=== PATIENT | female | born 1960 | race Caucasian/White ===

== ENCOUNTER 2016-07-08 11:28 | Emergency (ER) | payer OTHER ==
[2016-07-08 12:41] LABS: Hematocrit 37 % (35-47); Hemoglobin 12.5 g/dl (12.0-16.0); Mean Corpuscular HGB Conc 34 g/dl (31-36); Mean Corpuscular Hemoglobin 32 pg (27-31); Mean Corpuscular Volume 94 fL (80-97); Mean Platelet Volume 8 um3 (7.4-10.4); Red Blood Count 3.94 10^6/ul (4.0-5.4); Red Cell Distribution Width 12 % (10.5-15); White Blood Count 8.3 10^3/ul (3.5-10.8)
[2016-07-08 12:56] LABS: Albumin 4.3 g/dL (3.2-5.2); BUN/Creatinine Ratio 21.8 (8-20); Calcium 9.5 mg/dL (8.6-10.3); EGFR African American 98.3 (>60); EGFR Non-African American 76.4 (>60); Globulin 2.8 g/dL (2-4); Magnesium 1.9 mg/dL (1.9-2.7); Potassium 4.2 mmol/L (3.5-5.0); Total Bilirubin 0.4 mg/dL (0.2-1.0); Total Protein 7.1 g/dL (6.4-8.9)
[2016-07-08 13:06] LABS: TSH (Thyroid Stimulating Horm) 0.82 mcIU/mL (0.34-5.60)
--- NOTE | 2016-07-08 13:16 | RAD ---
INDICATION: Chest pain COMPARISON: None. TECHNIQUE: Single AP portable view of the chest was obtained. FINDINGS: Image quality is compromised due to the relative inferiority of a portable chest x-ray. The heart and mediastinum exhibit normal size and contour. The lungs are grossly clear. There is no evidence of a large pleural effusion. Incidentally noted is a plate and screw fixator overlying the midline lower cervical spine. Otherwise the bones are normal for the patient's age. IMPRESSION: No radiographic evidence for acute cardiopulmonary abnormality on this portable chest x-ray.
[2016-07-08 14:05] LABS: Urine Bilirubin Negative (Negative); Urine Glucose Negative (Negative); Urine Nitrite Negative (Negative)
--- NOTE | 2016-07-08 15:54 | ED ---
Morteza Davison Karl, scribed for Kevin Solano MD on 07/08/16 at 1235 . HPI Chest Pain - HPI Summary HPI Summary: 55 y/o F presents w/ c/o left sided CP an fatigue last night and today. Pt stated that her CP started today at 10:30 started while drinking coffee and she felt some lightheadedness when she arrived at the ED. Pt reported that her pain is constant at a 5/10 and is on the left side of her chest, worse with movement. Pt also reported mild SOB. Pt denied nausea, vomiting and diaphoresis. Hx: HTN. - History of Current Complaint Chief Complaint: EDChestPainROMI Time Seen by Provider: 07/08/16 12:16 Hx Obtained From: Patient Onset/Duration: Started Hours Ago, Atraumatic, Still Present Timing: Constant Initial Severity: Moderate Current Severity: Moderate Pain Intensity: 5 - CP Pain Scale Used: 0-10 Numeric Chest Pain Location: Left Anterior Aggravating Factor(s): Movement Alleviating Factor(s): Nothing Associated Signs and Symptoms: Positive: Chest Pain - Allergy/Home Medications Allergies/Adverse Reactions: Allergies Allergy/AdvReac Type Severity Reaction Status Date / Time Codeine Allergy Severe "MAKES ME Verified 06/16/16 10:24 ILL" Hydrocodone Allergy Severe "MAKES ME Verified 06/16/16 10:24 ILL AND HAVE NIGHTMARES" Oxycodone Allergy Severe "MAKES ME Verified 06/16/16 10:24 ILL AND HAVE NIGHTMARES" PMH/Surg Hx/FS Hx/Imm Hx Previously Healthy: Yes Endocrine/Hematology History: Denies: Hx Diabetes, Hx Thyroid Disease Cardiovascular History: Denies: Hx Hypertension, Hx Pacemaker/ICD Respiratory History: Denies: Hx Asthma, Hx Chronic Obstructive Pulmonary Disease (COPD) GI History: Denies: Hx Ulcer History: Denies: Hx Renal Disease Musculoskeletal History: Reports: Hx Back Problems - cervical spine Sensory History: Denies: Hx Hearing Aid Psychiatric History: Denies: Hx Panic Disorder - Surgical History Surgery Procedure, Year, and Place: 1993 & 1995 - [facility]. CERVICAL NECK SURGERY - 2002 Infectious Disease History: No Infectious Disease History: Denies: Hx Clostridium Difficile, Hx Hepatitis, Hx Human Immunodeficiency Virus (HIV), Hx of Known/Suspected MRSA, Hx Shingles, Hx Tuberculosis, Hx Known/ Suspected VRE, Hx Known/Suspected VRSA, History Other Infectious Disease, Traveled Outside the [place] in Last 30 Days - Family History Known Family History: Positive: Other - breast CA, bone CA, leukemia - Social History Alcohol Use: Rare Substance Use Type: Reports: None Substance Use Comment - Amount & Last Used: tramadol Smoking Status (MU): Never Smoked Tobacco Type: Cigarettes Have You Smoked in the Last Year: Yes Review of Systems Negative: Skin Diaphoresis Eyes: Negative ENT: Negative Positive: Chest Pain Positive: Shortness Of Breath Negative: Vomiting, Nausea Genitourinary: Negative Musculoskeletal: Negative Skin: Negative Neurological: Negative Psychological: Normal All Other Systems Reviewed And Are Negative: Yes Physical Exam - Summary Physical Exam Summary: VITAL SIGNS: Reviewed. GENERAL: Patient is a well developed and nourished female who is lying comfortable in the stretcher. Patient is not in any acute respiratory distress. HEAD AND FACE: No signs of trauma. No ecchymosis, hematomas or skull depressions. No sinus tenderness. EYES: PERRLA, EOMI x 2, No injected conjunctiva, no nystagmus. EARS: Hearing grossly intact. Ear canals and tympanic membranes are within normal limits. MOUTH: Oropharynx within normal limits. NECK: Supple, trachea is midline, no adenopathy, no JVD, no carotid bruit, no c- spine tenderness, neck with full ROM. CHEST: Symmetric, no tenderness at palpation LUNGS: Clear to auscultation bilaterally. No wheezing or crackles. CVS: Regular rate and rhythm, S1 and S2 present, no murmurs or gallops appreciated. ABDOMEN: Soft, non-tender. No signs of distention. No rebound no guarding, and no masses palpated. Bowel sounds are normal. EXTREMITIES: FROM in all major joints, no edema, no cyanosis or clubbing. NEURO: Alert and oriented x 3. No acute neurological deficits. Speech is normal and follows commands. SKIN: Dry and warm Triage Information Reviewed: Yes Vital Signs On Initial Exam: Initial Vitals Temp Pulse Resp BP Pulse Ox 98.3 F 67 15 151/89 100 07/08/16 11:38 07/08/16 11:38 07/08/16 11:38 07/08/16 11:38 07/08/16 11:38 Vital Signs Reviewed: Yes Diagnostics - Vital Signs Vital Signs Temp Pulse Resp BP Pulse Ox 07/08/16 11:38 98.3 F 67 15 151/89 100 - Laboratory Lab Results: Lab Results 07/08/16 Range/Units 12:30 WBC 8.3 (3.5-10.8) 10^3/ul RBC 3.94 L (4.0-5.4) 10^6/ul Hgb 12.5 (12.0-16.0) g/dl Hct 37 (35-47) % MCV 94 (80-97) fL MCH 32 H (27-31) pg MCHC 34 (31-36) g/dl RDW 12 (10.5-15) % Plt Count 278 (150-450) 10^3/ul MPV 8 (7.4-10.4) um3 Neut % (Auto) 56.4 (38-83) % Lymph % (Auto) 31.7 (25-47) % Rankin % (Auto) 8.9 (1-9) % Eos % (Auto) 2.4 (0-6) % Baso % (Auto) 0.6 (0-2) % Absolute Neuts (auto) 4.7 (1.5-7.7) 10^3/ul Absolute Lymphs (auto) 2.6 (1.0-4.8) 10^3/ul Absolute Monos (auto) 0.7 (0-0.8) 10^3/ul Absolute Eos (auto) 0.2 (0-0.6) 10^3/ul Absolute Basos (auto) 0 (0-0.2) 10^3/ul Absolute Nucleated RBC 0.01 10^3/ul Nucleated RBC % 0.1 Result Diagrams: 07/08/16 12:30 07/08/16 12:30 Lab Statement: Any lab studies that have been ordered have been reviewed, and results considered in the medical decision making process. - Radiology CXR Xray Interpretation: No Acute Changes Radiology Interpretation Completed By: Radiologist - IMPRESSION: No radiographic evidence for acute cardiopulmonary abnormality on this portable chest x-ray. - EKG 11:29 EKG Interpretation: NSR at 76 bpm, No ST elevation Chest Pain Course/Dx - Course Assessment/Plan: 55 y/o F presents w/ c/o left sided CP an fatigue last night and today. Pt stated that her CP started today at 10:30 started while drinking coffee and she felt some lightheadedness when she arrived at the ED. Pt reported that her pain is constant at a 5/10 and is on the left side of her chest, worse with movement. Pt also reported mild SOB. Pt denied nausea, vomiting and diaphoresis. Hx: HTN. Blood work wnl. Troponin # 1 and #2 is 0.00. UA is negative. CXR: No acute cardiopulmonary pathology. EKG: NSR at BPM w/o NERI. Patient reports that all symptoms have resolved. Patient has been observed in the ER for approximately 4 hours. Because the patient has no significant comorbidities and no family history of cardiovascular disease the patient will be discharged home with follow up of PMD. I discussed all the findings and test results with the patient. Patient was instructed to return to the emergency room immediately if any of the symptoms return or worsens. Patient understands and agrees. Plan of care was discussed with the patient and patient understands and agrees. All questions were answered at patient satisfaction. There were no further complaints or concerns. PE before discharge : CVS: S1 and S2 present. No murmurs appreciated. Abdominal exam before discharge: Soft, non-tender. No signs of distention. No rebound no guarding, and no masses palpated. Bowel sounds are normal. Patient is alert and oriented x 3. Patient is hemodynamically stabl - Chest Pain Differential Diagnosis/HQI/PQRI: Acute DE, ACS, Angina, CHF, Chest Wall, GI Disease, Lower Respiratory Infection - Diagnoses Provider Diagnoses: Atypical chest pain Discharge - Discharge Plan Condition: Stable Disposition: HOME The documentation as recorded by the Morteza hussein Karl accurately reflects the service I personally performed and the decisions made by me, Kevin Solano MD.
[2016-07-08 16:34] VITALS: BP 129/106
== END 2016-07-08 16:40 | disposition home or self-care (01) ==
LOC: ED 11:28
DX: R07.89 Other chest pain (principal); R06.02 Shortness of breath
CPT/HCPCS: 36415; 71010; 80053; 81003; 82550; 82553; 83605; 83735; 83880; 84443; 84484; 85025; 93005; 99283

== ENCOUNTER 2016-10-31 14:13 | Emergency (ER) | payer OTHER ==
[2016-10-31 14:20] VITALS: BP 107/59
--- NOTE | 2016-11-20 07:51 | UC ---
Throat Pain/Nasal Regan HPI - HPI Summary HPI Summary: Patient presents with complaints of sinus pain, pressure, and nasal plugging, and discharge. She states the the nasal discharge is thick, green. Denies headache, reported fever or chills. States she is eating, and drinking well. - History of Current Complaint Chief Complaint: UCRespiratory Stated Complaint: SINUS ISSUE Time Seen by Provider: 10/31/16 14:32 Hx Obtained From: Patient ?: No Onset/Duration: Gradual Onset Severity: Moderate Pain Intensity: 0 Pain Scale Used: 0-10 Numeric Associated Signs & Symptoms: Positive: Sinus Discomfort, Nasal Discharge - Allergies/Home Medications Allergies/Adverse Reactions: Allergies Allergy/AdvReac Type Severity Reaction Status Date / Time Codeine Allergy Severe "MAKES ME Verified 09/27/16 08:55 ILL" Hydrocodone Allergy Severe "MAKES ME Verified 09/27/16 08:55 ILL AND HAVE NIGHTMARES" Oxycodone Allergy Severe "MAKES ME Verified 09/27/16 08:55 ILL AND HAVE NIGHTMARES" PMH/Surg Hx/FS Hx/Imm Hx Previously Healthy: Yes - Surgical History Surgical History: Yes Surgery Procedure, Year, and Place: 1993 & 1995 - [facility]. CERVICAL NECK SURGERY - 2002. D&C - Family History Known Family History: Positive: Other - breast CA, bone CA, leukemia - Social History Alcohol Use: None Substance Use Type: None Substance Use Comment - Amount & Last Used: tramadol Smoking Status (MU): Former Smoker Type: Cigarettes Have You Smoked in the Last Year: Yes Household Exposure Type: Cigarettes Review of Systems Constitutional: Fatigue ENT: Nasal Discharge, Sinus Congestion, Sinus Pain/Tenderness All Other Systems Reviewed And Are Negative: Yes Physical Exam Triage Information Reviewed: Yes Appearance: Ill-Appearing Vital Signs: Initial Vital Signs Temp 98 F 10/31/16 14:17 Pulse 73 10/31/16 14:17 Resp 16 10/31/16 14:17 BP 107/59 10/31/16 14:17 Pulse Ox 99 10/31/16 14:17 Vital Signs Reviewed: Yes Eye Exam: Normal ENT: Positive: Nasal congestion, Nasal drainage Neck exam: Normal Respiratory Exam: Normal Cardiovascular Exam: Normal Throat Pain/Nasal Course/Dx - Course Course Of Treatment: Patient presents with a hstory of sinus infections, these symptoms today she finds are consisent with her previuos sinus infections. She was treated with Zithromax, and flonase and discharged in stable condition. - Differential Dx/Diagnosis Differential Diagnosis/HQI/PQRI: Sinusitis Provider Diagnoses: sinusitis Discharge - Discharge Plan Condition: Stable Disposition: HOME Prescriptions: Azithromycin TAB* [Zithromax TAB (Z-ROXANNE) 250 mg #6 tabs] 250 mg PO DAILY #6 tab Fluconazole 100 MG TAB* [Diflucan 100 MG TAB*] 100 mg PO DAILY #1 tab Patient Education Materials: Sinusitis (ED) Referrals: Piero Garcia MD [Primary Care Provider] -
== END 2016-10-31 15:14 | disposition home or self-care (01) ==
LOC: UCEAST 14:13
DX: J32.9 Chronic sinusitis, unspecified (principal); Z88.5 Allergy status to narcotic agent; Z87.891 Personal history of nicotine dependence
CPT/HCPCS: 99211; G0463

== ENCOUNTER 2016-11-17 13:36 | Emergency (ER) | payer OTHER ==
--- NOTE | 2016-11-17 15:12 | RAD ---
INDICATION: Cough. COMPARISON: Comparison is made with a prior chest x-ray study from July 08, 2016. TECHNIQUE: Dual-energy PA and lateral views of the chest were obtained. FINDINGS: The heart is within normal limits in size. Mediastinal and hilar contours appear within normal limits. The lungs are hyperinflated and clear. No pleural effusion is seen. Postsurgical changes are noted in the lower cervical spine. IMPRESSION: FINDINGS SUGGESTIVE OF COPD, NO EVIDENCE FOR ACUTE FINDING.
--- NOTE | 2016-11-17 15:58 | UC ---
Throat Pain/Nasal Regan HPI - HPI Summary HPI Summary: SIX WEEKS OF SINUS PRESSURE, CONGESTIPON AND CHEST CONGESTION. HAD BEEN ON COURSE OF AZITHROMYCIN 3 WEEKS AGO. SYMPTONS RESOLVED SOMEWHAT, BUT RETURNED. NO FEVER. - History of Current Complaint Hx Obtained From: Patient Onset/Duration: Gradual Onset, Lasting Weeks, Still Present Severity: Mild Pain Intensity: 2 Pain Scale Used: 0-10 Numeric Cough: Nonproductive Associated Signs & Symptoms: Positive: Hoarseness, Sinus Discomfort, Nasal Discharge - Epiglottits Risk Factors Epiglottis Risk Factors: Negative <Nakul Beyer - Last Filed: 11/17/16 15:54> <Ava Odonnell - Last Filed: 11/18/16 07:03> - History of Current Complaint Chief Complaint: UCRespiratory Stated Complaint: URI Time Seen by Provider: 11/17/16 14:33 - Allergies/Home Medications Allergies/Adverse Reactions: Allergies Allergy/AdvReac Type Severity Reaction Status Date / Time Codeine Allergy Severe "MAKES ME Verified 09/27/16 08:55 ILL" Hydrocodone Allergy Severe "MAKES ME Verified 09/27/16 08:55 ILL AND HAVE NIGHTMARES" Oxycodone Allergy Severe "MAKES ME Verified 09/27/16 08:55 ILL AND HAVE NIGHTMARES" PMH/Surg Hx/FS Hx/Imm Hx Previously Healthy: Yes - Surgical History Surgical History: Yes Surgery Procedure, Year, and Place: 1993 & 1995 - [facility]. CERVICAL NECK SURGERY - 2002. D&C - Family History Known Family History: Positive: Other - breast CA, bone CA, leukemia - Social History Occupation: Employed Full-time Lives: With Family Alcohol Use: None Substance Use Type: None Substance Use Comment - Amount & Last Used: tramadol Smoking Status (MU): Former Smoker Type: Cigarettes Have You Smoked in the Last Year: Yes Household Exposure Type: Cigarettes <Nakul Beyer - Last Filed: 11/17/16 15:54> Review of Systems Constitutional: Negative Skin: Negative Eyes: Negative ENT: Nasal Discharge, Sinus Congestion, Sinus Pain/Tenderness Respiratory: Cough Cardiovascular: Negative Gastrointestinal: Negative Genitourinary: Negative Motor: Negative Neurovascular: Negative Musculoskeletal: Negative Neurological: Negative Psychological: Negative All Other Systems Reviewed And Are Negative: Yes <Nakul Beyer - Last Filed: 11/17/16 15:54> Physical Exam Triage Information Reviewed: Yes Appearance: Well-Appearing, No Pain Distress, Well-Nourished Vital Signs: Initial Vital Signs Temp 98.3 F 11/17/16 13:39 Pulse 83 11/17/16 13:39 Resp 16 11/17/16 13:39 Pulse Ox 100 11/17/16 13:39 Vital Signs Reviewed: Yes Eye Exam: Normal ENT: Positive: Normal ENT inspection, Hearing grossly normal, Pharynx normal, Nasal congestion, TM bulging, TM dull Dental Exam: Normal Neck exam: Normal Neck: Positive: Supple, Nontender, No Lymphadenopathy Respiratory Exam: Other - COUGH Respiratory: Positive: Chest non-tender, Lungs clear, Normal breath sounds, No respiratory distress, No accessory muscle use Cardiovascular Exam: Normal Cardiovascular: Positive: RRR, No Murmur, Pulses Normal, Brisk Capillary Refill Abdominal Exam: Normal Musculoskeletal Exam: Normal Musculoskeletal: Positive: Strength Intact, ROM Intact Neurological Exam: Normal Psychological Exam: Normal Psychological: Positive: Normal Response To Family Skin Exam: Normal <Nakul Beyer - Last Filed: 11/17/16 15:54> Vital Signs: Initial Vital Signs Temp 98.3 F 11/17/16 13:39 Pulse 83 11/17/16 13:39 Resp 16 11/17/16 13:39 Pulse Ox 100 11/17/16 13:39 <Ava Odonnell - Last Filed: 11/18/16 07:03> Throat Pain/Nasal Course/Dx - Differential Dx/Diagnosis Differential Diagnosis/HQI/PQRI: Sinusitis, Tonsillitis, URI Provider Diagnoses: SINUSITIS; BRONCHITIS <Nakul Beyer - Last Filed: 11/17/16 15:54> Discharge <Nakul Beyer - Last Filed: 11/17/16 15:54> <Ava Odonnell - Last Filed: 11/18/16 07:03> - Discharge Plan Condition: Stable Disposition: HOME Prescriptions: Amoxicillin/Clavulanate TAB* [Augmentin TAB 875*] 875 mg PO BID #20 tab Benzonatate CAP* [Tessalon 100 MG CAP*] 100 mg PO TID PRN #15 cap PRN Reason: Cough Patient Education Materials: Sinusitis (ED) Referrals: Piero Garcia MD [Primary Care Provider] - Attestation Statement Provider Attestation: I was available for consult. This patient was seen by the Y[facility]. The patient was not presented to, seen by, or examined by me. -Kelin <Ava Odonnell - Last Filed: 11/18/16 07:03>
== END 2016-11-17 15:46 | disposition home or self-care (01) ==
LOC: UCEAST 13:36
DX: J32.9 Chronic sinusitis, unspecified (principal); J40 Bronchitis, not specified as acute or chronic; Z88.5 Allergy status to narcotic agent; Z87.891 Personal history of nicotine dependence
CPT/HCPCS: 71020; 99212; G0463

== ENCOUNTER 2017-08-22 13:36 | Emergency (ER) | payer OTHER ==
--- OUTSIDE RECORDS SUMMARY | 2017-08-22 13:46 | XMS REPORT ---
:1960 External Reference #:[id number] Author Organization [facility] Address [address] [address] Phone [phone] Care Team Providers Name Role Phone Piero Garcia MD Primary Care Physician Unavailable Payers Type Date Identification Numbers Payment Provider Subscriber Commercial Policy Number: [id number] [employer] [place] Saini PayID: [id number] [address] [address] [place] [address] Workers Compensation Onset: 2015 Policy Number: Autumn SCHMITT I.M. [place] Saini [id number] Group Number: fax# [phone] [address] PayID: SHANA Oliveros [id number] Workers Compensation Onset: 2015 Policy Number: Autumn Jaramillo/C Ins [place] Saini [id number] Group Number: FAX [phone] [address] PayID: [id number] Eleazar, SHANA [id number] Problems Date Description Provider Status Onset: 07/12/2015 Cervical spondylosis without Carson Knapp M.D. Active myelopathy Onset: 11/24/2015 Cervical disc disorder Piero Garcia M.D. Active Onset: 01/27/2016 Mixed hyperlipidemia Piero Garcia M.D. Active Onset: 08/14/2016 Anxiety state Piero Garcia M.D. Active Onset: 08/14/2016 Mild recurrent major depression Piero Garcia M.D. Active Family History Date Family Member(s) Problem(s) Comments General positev for breast and bone CA and leukemia Father due to NC () Father due to Emphysema () Mother due to Emphysema () Siblings 1 rheumatoid arthritis Siblings 2 breast cancer Social History Type Date Description Comments Occupation Currently Working [employer] out due to pain right now Cigarette Use Exposed to second hand smoke ETOH Use Rarely consumes wine Recreational Drug Use Denies Drug Use Smoking Patient is a former smoker Recreational Drug Use Sporadically uses Marijuana Allergies, Adverse Reactions, Alerts Date Description Reaction Status Severity Comments 05/04/2015 Codeine vomiting active Moderate to Severe 05/04/2015 Hydrocodone nightmares active Severe Medications Medication Date Status Form Strength Qnty SIG Indications Ordering Provider Sertraline HCL 06/13/ Active Tablets 100mg 60tab 2 tab by F33.0 Amy 2017 s mouth Nils, everyday [employer] Meloxicam 05/04/ Active Tablets 15mg 30tab once M54.2 Piero 2014 s daily Pachikara with food Sanjana Methocarbamol / Active Tablets 750mg 90tab tid [place], 0000 s MD Maverick Tramadol HCL / Active Tablets 50mg pt states [place], 0000 she is martín Temple MD four times daily Tylenol / Active Tablets 325mg as needed Unknown 0000 Lyrica / Active Capsules 75mg 4 tabs qd Unknown 0000 Hyoscyamine / Active Tablets ER 0.375mg 1 po qd [place], Sulfate ER 0000 12HR MD Lukas Clindamycin HCL 04/04/ Hx Capsules 300mg 14cap 1 tab by R68.84 Zsofia 2016 - s mouth Nils, 05/06/ twice a [employer] 2017 day for 7 days Amoxicillin 03/26/ Hx Tablets 875mg 20tab take one Other 2016 - tablet by Ordering 04/05/ mouth Provider 2017 twice a day x's 10 days Sertraline HCL 03/16/ Hx Tablets 100mg 45tab Take 1 F33.0 Piero 2016 - s & 05/29 Pachikara 06/13/ Tablets , MKaushikDKaushik 2018 By Mouth Every Day Sertraline HCL 02/12/ Hx Tablets 100mg 45tab 1 1/2 tab F33.0 Piero 2016 - s by mouth Pachikara 03/16/ every day , M.DKaushik 2016 Sertraline HCL 02/08/ Hx Tablets 100mg 45tab 1/2 tab F33.0 [place] 2016 - s by mouth Pachikara 02/12/ every day , M.DKaushik 2016 Sertraline HCL 10/03/ Hx Tablets 100mg 30tab Take One F33.0 [place] 2017 - s Tablet By Pachikara 02/08/ Mouth , M.D. 2016 Every Day Sertraline HCL 08/28/ Hx Tablets 50mg 30tab 1 by F33.0 [place] 2016 - s mouth Pachikara 10/03/ every day , M.DKaushik 2016 Sertraline HCL 08/14/ Hx Tablets 25mg 30tab 1 by F33.0 [place] 2016 - mouth Pachikara 08/28/ every day , M.DKaushik 2016 Amoxicillin/Clavu 08/17/ Hx Tablets 875-125mg 14tab 1 by J20.9 [place] lanate Potassium 2015 - mouth Pachikara 09/01/ twice a , M.D. 2015 day Amoxicillin/Clavu 08/17/ Hx Tablets 875-125mg 20tab 1 by J20.9 Piero lanate Potassium 2015 - mouth Pachikara 09/01/ twice a , M.D. 2015 day Cyclobenzaprine 07/15/ Hx Tablets 10mg 90tab three M50.10 [place] HCL 2015 - times a Pachikara 11/23/ day as , M.DKaushik 2016 needed Cyclobenzaprine 07/08/ Hx Tablets 10mg 20tab twice a M50.10 Piero HCL 2015 day as Pachikara 07/15/ needed , MXimena 2015 Cyclobenzaprine 05/25/ Hx Tablets 5mg 15tab 1 tab 8 h Piero HCL 2014 - prn Pachikara 05/31/ , M.Edilberto 2016 Centrum Silver / Hx Tablets Adult 50 onc a day Unknown Adult 50+ 0000 - 2015 Iron / Hx Tablets 50mg 2-3 times Unknown 0000 - per week 2015 Aleve / Hx Capsules 220mg 1 by Unknown 0000 - mouth 05/04/ twice a 2014 day as needed Ibuprofen / Hx Tablets 200mg 2 tabs as Unknown 0000 - needed 2014 Acetaminophen / Hx Capsules 500mg 1 by Unknown 0000 - mouth 06/28/ three to 2016 four times a day as needed Carisoprodol / Hx Tablets 350mg 30tab / tab 4 Jony 0000 - s times a , LMFT 2016 Tincture For / Hx Unknown Arithritis - 2016 Tincture For Hot / Hx Unknown Flashes - 2017 Tincture For / Hx Unknown Relaxing Muscles - 2016 Black Cohosh / Hx as needed Unknown - 2017 Medications Administered in Office Medication Date Status Form Strength Qnty SIG Indications Ordering Provider PPD Administered Injection Piero Garcia M.D. Immunizations CPT Code Status Date Vaccine Reaction Lot # [id number] Given 02/08/2017 Influenza Virus Vaccine, no immediate reaction, [id number] Quadrivalent, Split, patient tolerated well Preservative Free [id number] Given 05/30/2016 Influenza Virus Vaccine, [id number] Quadrivalent, Split Virus, [place] Use [id number] Given 07/22/2015 Pneumonia Vaccine [id number] Given 07/13/2015 Influenza Virus Vaccine, [id number] Quadrivalent, Split, Preservative Free Vital Signs Date Vital Result Comment 07/23/2017 Height 62 inches 5'2" Weight 170.00 lb Heart Rate 88 /min BP Systolic 140 mmHg BP Diastolic 90 mmHg Respiratory Rate 16 /min BMI (Body Mass Index) 31.1 kg/m2 07/17/2017 Weight 170.00 lb with shoes Heart Rate 77 /min BP Systolic 128 mmHg BP Diastolic 80 mmHg O2 % BldC Oximetry 96 % 06/06/2017 BP Systolic 138 mmHg BP Diastolic 84 mmHg 06/06/2017 Height 62 inches 5'2" Weight 166.00 lb Heart Rate 96 /min BP Systolic Sitting 170 mmHg BP Diastolic Sitting 90 mmHg Respiratory Rate 15 /min O2 % BldC Oximetry 96 % BMI (Body Mass Index) 30.4 kg/m2 05/17/2017 Weight 165.50 lb Heart Rate 83 /min BP Systolic Sitting 132 mmHg BP Diastolic Sitting 82 mmHg Body Temperature 97.3 F O2 % BldC Oximetry 95 % 04/11/2017 Weight 169.00 lb Heart Rate 72 /min BP Systolic Sitting 132 mmHg BP Diastolic Sitting 80 mmHg Body Temperature 98.5 F O2 % BldC Oximetry 97 % 04/04/2017 Weight 165.00 lb Heart Rate 68 /min BP Systolic Sitting 172 mmHg BP Diastolic Sitting 96 mmHg 03/16/2017 Height 60.5 inches 5'0.50" Weight 158.00 lb Heart Rate 78 /min BP Systolic 136 mmHg BP Diastolic 80 mmHg Body Temperature 98.6 F O2 % BldC Oximetry 98 % BMI (Body Mass Index) 30.3 kg/m2 02/08/2017 Height 60.5 inches 5'0.50" Weight 168.50 lb Heart Rate 75 /min BP Systolic 128 mmHg BP Diastolic 76 mmHg Body Temperature 98.0 F O2 % BldC Oximetry 96 % BMI (Body Mass Index) 32.4 kg/m2 02/01/2017 Height 60.5 inches 5'0.50" Weight 161.25 lb Heart Rate 60 /min BP Systolic Sitting 140 mmHg BP Diastolic Sitting 84 mmHg Respiratory Rate 14 /min Body Temperature 97.1 F BMI (Body Mass Index) 31.0 kg/m2 01/16/2017 Height 60.5 inches 5'0.50" Weight 160.12 lb Heart Rate 80 /min BP Systolic 130 mmHg BP Diastolic 82 mmHg Body Temperature 99.0 F O2 % BldC Oximetry 99 % BMI (Body Mass Index) 30.8 kg/m2 12/13/2016 Height 60.5 inches 5'0.50" Weight 164.00 lb Heart Rate 76 /min BP Systolic Sitting 134 mmHg BP Diastolic Sitting 72 mmHg Body Temperature 98.6 F O2 % BldC Oximetry 98 % BMI (Body Mass Index) 31.5 kg/m2 10/24/2016 Height 60.5 inches 5'0.50" Weight 166.38 lb Heart Rate 86 /min BP Systolic 118 mmHg BP Diastolic 72 mmHg Body Temperature 98.5 F O2 % BldC Oximetry 98 % BMI (Body Mass Index) 32.0 kg/m2 10/03/2016 Weight 165.50 lb Heart Rate 84 /min BP Systolic Sitting 120 mmHg BP Diastolic Sitting 82 mmHg Body Temperature 98.7 F O2 % BldC Oximetry 96 % 09/05/2016 Weight 162.25 lb Heart Rate 88 /min BP Systolic Sitting 96 mmHg BP Diastolic Sitting 67 mmHg Body Temperature 98.6 F O2 % BldC Oximetry 94 % 08/28/2016 Weight 160.00 lb Heart Rate 84 /min BP Systolic Sitting 130 mmHg BP Diastolic Sitting 90 mmHg Body Temperature 97.2 F O2 % BldC Oximetry 98 % 08/14/2016 Height 60.5 inches 5'0.50" Weight 160.00 lb Heart Rate 80 /min BP Systolic Sitting 158 mmHg BP Diastolic Sitting 88 mmHg Body Temperature 96.9 F O2 % BldC Oximetry 98 % BMI (Body Mass Index) 30.7 kg/m2 07/26/2016 Height 60.5 inches 5'0.50" Weight 163.00 lb Heart Rate 76 /min BP Systolic Sitting 112 mmHg BP Diastolic Sitting 76 mmHg Body Temperature 98.5 F Pain Level 6 neck O2 % BldC Oximetry 97 % BMI (Body Mass Index) 31.3 kg/m2 06/30/2016 Weight 163.00 lb Heart Rate 84 /min BP Systolic Sitting 160 mmHg BP Diastolic Sitting 90 mmHg Body Temperature 98.6 F O2 % BldC Oximetry 98 % 05/12/2016 Weight 160.50 lb Heart Rate 81 /min BP Systolic Sitting 142 mmHg BP Diastolic Sitting 86 mmHg Body Temperature 99.0 F O2 % BldC Oximetry 98 % 03/17/2016 Weight 158.50 lb Heart Rate 86 /min BP Systolic Sitting 144 mmHg BP Diastolic Sitting 86 mmHg Body Temperature 98.6 F O2 % BldC Oximetry 98 % 01/27/2016 Weight 162.12 lb Heart Rate 72 /min BP Systolic Sitting 150 mmHg BP Diastolic Sitting 82 mmHg Body Temperature 98.5 F O2 % BldC Oximetry 97 % 01/20/2016 Weight 158.00 lb Heart Rate 71 /min BP Systolic Sitting 136 mmHg BP Diastolic Sitting 72 mmHg Body Temperature 98.9 F O2 % BldC Oximetry 98 % 12/14/2015 Height 60.5 inches 5'0.50" Weight 163.12 lb Heart Rate 78 /min BP Systolic Sitting 142 mmHg BP Diastolic Sitting 86 mmHg Body Temperature 98.4 F O2 % BldC Oximetry 98 % BMI (Body Mass Index) 31.3 kg/m2 11/24/2015 Height 60.5 inches 5'0.50" Weight 169.00 lb Heart Rate 88 /min BP Systolic Sitting 140 mmHg BP Diastolic Sitting 82 mmHg Body Temperature 98.4 F O2 % BldC Oximetry 97 % BMI (Body Mass Index) 32.5 kg/m2 09/22/2015 Height 60.5 inches 5'0.50" Weight 160.00 lb Heart Rate 100 /min BP Systolic Sitting 142 mmHg BP Diastolic Sitting 80 mmHg Pain Level 7 7/10 O2 % BldC Oximetry 96 % BMI (Body Mass Index) 30.7 kg/m2 09/02/2015 Height 60.5 inches 5'0.50" Weight 160.00 lb Heart Rate 98 /min BP Systolic Sitting 123 mmHg BP Diastolic Sitting 76 mmHg Body Temperature 98.4 F O2 % BldC Oximetry 96 % BMI (Body Mass Index) 30.7 kg/m2 08/18/2015 Height 60.5 inches 5'0.50" Weight 155.00 lb Heart Rate 87 /min BP Systolic Sitting 132 mmHg BP Diastolic Sitting 72 mmHg Respiratory Rate 16 /min Body Temperature 98.6 F O2 % BldC Oximetry 98 % BMI (Body Mass Index) 29.8 kg/m2 08/02/2015 Height 60.5 inches 5'0.50" Weight 154.00 lb Heart Rate 98 /min BP Systolic Sitting 142 mmHg BP Diastolic Sitting 80 mmHg Body Temperature 98.6 F Pain Level 6 6/10 O2 % BldC Oximetry 97 % BMI (Body Mass Index) 29.6 kg/m2 07/27/2015 Height 60.5 inches 5'0.50" Weight 158.00 lb Heart Rate 88 /min BP Systolic Sitting 138 mmHg BP Diastolic Sitting 88 mmHg Body Temperature 98.7 F O2 % BldC Oximetry 96 % BMI (Body Mass Index) 30.3 kg/m2 07/15/2015 Height 60.5 inches 5'0.50" Weight 160.00 lb Heart Rate 86 /min BP Systolic Sitting 104 mmHg BP Diastolic Sitting 70 mmHg Body Temperature 98.6 F O2 % BldC Oximetry 97 % BMI (Body Mass Index) 30.7 kg/m2 07/13/2015 Height 60.5 inches 5'0.50" Weight 156.38 lb Heart Rate 95 /min BP Systolic Sitting 123 mmHg BP Diastolic Sitting 71 mmHg Body Temperature 99.6 F O2 % BldC Oximetry 98 % BMI (Body Mass Index) 30.0 kg/m2 07/12/2015 Height 60.5 inches 5'0.50" Weight 157.00 lb Heart Rate 78 /min BP Systolic Sitting 128 mmHg BP Diastolic Sitting 80 mmHg Pain Level 4 BMI (Body Mass Index) 30.2 kg/m2 07/08/2015 Height 60.5 inches 5'0.50" Weight 155.25 lb Heart Rate 88 /min BP Systolic Sitting 124 mmHg BP Diastolic Sitting 72 mmHg Body Temperature 99.3 F O2 % BldC Oximetry 98 % BMI (Body Mass Index) 29.8 kg/m2 06/21/2015 Height 60.5 inches 5'0.50" Weight 156.00 lb Heart Rate 67 /min BP Systolic Sitting 138 mmHg BP Diastolic Sitting 88 mmHg Body Temperature 98.5 F O2 % BldC Oximetry 97 % BMI (Body Mass Index) 30.0 kg/m2 06/07/2015 Height 60.5 inches 5'0.50" Weight 156.50 lb Heart Rate 88 /min BP Systolic Sitting 104 mmHg BP Diastolic Sitting 70 mmHg Body Temperature 99.1 F O2 % BldC Oximetry 97 % BMI (Body Mass Index) 30.1 kg/m2 05/31/2015 Height 60.5 inches 5'0.50" Weight 157.12 lb Heart Rate 86 /min BP Systolic Sitting 138 mmHg BP Diastolic Sitting 86 mmHg Body Temperature 99.2 F O2 % BldC Oximetry 98 % BMI (Body Mass Index) 30.2 kg/m2 05/18/2015 Height 60.5 inches 5'0.50" Weight 154.25 lb Heart Rate 84 /min BP Systolic Sitting 127 mmHg BP Diastolic Sitting 77 mmHg Pain Level 6 6/10 O2 % BldC Oximetry 96 % BMI (Body Mass Index) 29.6 kg/m2 05/04/2015 Height 60.5 inches 5'0.50" Weight 157.38 lb Heart Rate 84 /min BP Systolic Sitting 162 mmHg BP Diastolic Sitting 90 mmHg Body Temperature 97.8 F O2 % BldC Oximetry 97 % BMI (Body Mass Index) 30.2 kg/m2 Results Test Date Test Result H/L Range Note Laboratory test 06/06/2017 Cytology SEE RESULT BELOW 1 finding Laboratory test 04/04/2017 Surgical Pathology SEE RESULT BELOW 2 finding Laboratory test 01/19/2017 Giardia Lamblia SEE RESULT BELOW 3 finding Antigen Comp Metabolic Panel 01/19/2017 Sodium 135 mmol/L 133-145 Potassium 4.1 mmol/L 3.5-5.0 Chloride 105 mmol/L 101-111 Co2 Carbon Dioxide 26 mmol/L 22-32 Anion Gap 4 mmol/L 2-11 Glucose 101 mg/dL High 70-100 Blood Urea Nitrogen 16 mg/dL 6-24 Creatinine 0.94 mg/dL 0.51-0.95 BUN/Creatinine Ratio 17.0 8-20 Calcium 9.8 mg/dL 8.6-10.3 Total Protein 7.5 g/dL 6.4-8.9 Albumin 4.5 g/dL 3.2-5.2 Globulin 3.0 g/dL 2-4 Albumin/Globulin Ratio 1.5 1-3 Total Bilirubin 0.50 mg/dL 0.2-1.0 Alkaline Phosphatase 86 U/L 34-104 Alt 17 U/L 7-52 Ast 20 U/L 13-39 Egfr Non- 61.4 >60 Egfr 78.9 >60 4 Lipid Profile (Trig/Chol/HDL) 07/20/2016 Triglycerides 99 mg/dL 5 Cholesterol 200 mg/dL 6 HDL Cholesterol 58.6 mg/dL 7 LDL Cholesterol 122 mg/dL 8 Urinalysis Profile 07/08/2016 Urine Color Straw Urine Appearance Clear Urine Specific [place] 1.004 Low 1.010-1.030 Urine pH 7.0 5-9 Urine Urobilinogen Negative Negative Urine Ketones Negative Negative Urine Protein Negative Negative Urine Leukocytes Negative Negative Urine Blood Negative Negative Urine Nitrite Negative Negative Urine Bilirubin Negative Negative Urine Glucose Negative Negative Laboratory test finding 07/08/2016 TSH (Thyroid Stim Horm) 0.82 mcIU/mL 0.34-5.60 Lactic Acid 0.8 mmol/L 0.5-2.0 9 B-Type Natriuretic Peptide BNP 66 pg/mL 10 CKMB 07/08/2016 CKMB ng/mL 2.1 ng/mL 0.6-6.3 Laboratory test finding 07/08/2016 Magnesium 1.9 mg/dL 1.9-2.7 Creatine Kinase(CK) 72 U/L 10-223 Troponin-I (TnI) 0.00 ng/mL <0.04 11 Comp Metabolic Panel 07/08/2016 Sodium 133 mmol/L 133-145 Potassium 4.2 mmol/L 3.5-5.0 Chloride 101 mmol/L 101-111 Co2 Carbon Dioxide 26 mmol/L 22-32 Anion Gap 6 mmol/L 2-11 Glucose 86 mg/dL 70-100 Blood Urea Nitrogen 17 mg/dL 6-24 Creatinine 0.78 mg/dL 0.51-0.95 BUN/Creatinine Ratio 21.8 High 8-20 Calcium 9.5 mg/dL 8.6-10.3 Total Protein 7.1 g/dL 6.4-8.9 Albumin 4.3 g/dL 3.2-5.2 Globulin 2.8 g/dL 2-4 Albumin/Globulin Ratio 1.5 1-3 Total Bilirubin 0.40 mg/dL 0.2-1.0 Alkaline Phosphatase 78 U/L 34-104 Alt 22 U/L 7-52 Ast 23 U/L 13-39 Egfr Non- 76.4 >60 Egfr 98.3 >60 12 CBC Auto Diff 07/08/2016 White Blood Count 8.3 10^3/uL 3.5-10.8 Red Blood Count 3.94 10^6/uL Low 4.0-5.4 Hemoglobin 12.5 g/dL 12.0-16.0 Hematocrit 37 % 35-47 Mean Corpuscular Volume 94 fL 80-97 Mean Corpuscular Hemoglobin 32 pg High 27-31 Mean Corpuscular HGB Conc 34 g/dL 31-36 Red Cell Distribution Width 12 % 10.5-15 Platelet Count 278 10^3/uL 150-450 Mean Platelet Volume 8 um3 7.4-10.4 Abs Neutrophils 4.7 10^3/uL 1.5-7.7 Abs Lymphocytes 2.6 10^3/uL 1.0-4.8 Abs Monocytes 0.7 10^3/uL 0-0.8 Abs Eosinophils 0.2 10^3/uL 0-0.6 Abs Basophils 0 10^3/uL 0-0.2 Abs Nucleated RBC 0.01 10^3/uL Granulocyte % 56.4 % 38-83 Lymphocyte % 31.7 % 25-47 Monocyte % 8.9 % 1-9 Eosinophil % 2.4 % 0-6 Basophil % 0.6 % 0-2 Nucleated Red Blood Cells % 0.1 Laboratory test finding 07/08/2016 Troponin-I (TnI) 0.00 ng/mL <0.04 13 Lipid Profile 01/26/2016 Triglycerides 61 mg/dL 14, 15 (Trig/Chol/HDL) Cholesterol 185 mg/dL 14, 16 HDL Cholesterol 63.0 mg/dL 14, 17 LDL Cholesterol 110 mg/dL 14, 18 Lipid Profile (Trig/Chol/HDL) 07/19/2015 Triglycerides 53 mg/dL 19 Cholesterol 223 mg/dL 20 HDL Cholesterol 73.7 mg/dL 21 LDL Cholesterol 139 mg/dL 22 Comp Metabolic Panel 07/19/2015 Sodium 134 mmol/L 133-145 Potassium 4.6 mmol/L 3.5-5.0 Chloride 98 mmol/L Low 101-111 Co2 Carbon Dioxide 32 mmol/L 22-32 Anion Gap 4 mmol/L 2-11 Glucose 83 mg/dL 70-100 Blood Urea Nitrogen 14 mg/dL 6-24 Creatinine 0.82 mg/dL 0.51-0.95 BUN/Creatinine Ratio 17.1 8-20 Calcium 9.7 mg/dL 8.6-10.3 Total Protein 7.3 g/dL 6.4-8.9 Albumin 4.6 g/dL 3.2-5.2 Globulin 2.7 g/dL 2-4 Albumin/Globulin Ratio 1.7 1-3 Total Bilirubin 0.40 mg/dL 0.2-1.0 Alkaline Phosphatase 80 U/L 34-104 Alt 19 U/L 7-52 Ast 21 U/L 13-39 Egfr Non- 72.4 >60 Egfr 93.1 >60 23 Mumps Igg 07/19/2015 Mumps Virus IgG Antibody Positive 24 Mumps IgG Antibody Index 4.5 25 Rubella Igg Titer 07/19/2015 Rubella IgG Antibody Positive 26 Rubella IgG Antibody Index 3.4 27 Rubeola Measles Igg AB 07/19/2015 Rubeola (Measles) IgG Antibody Positive 28 Rubeola IgG Antibody Index 7.1 29 1 SEE RESULT BELOW Name: PARIS SAINI : [address]: Amy rWay NP Acct: [id number] Unit: [id number] AGE: 56 Location: [facility] Re06/06/17 SEX: F Status: REG REF SPEC: [id number] MATTHEW: 06/06/17-[address] [facility] [address]: Amy Wray NP REQ: [id number] RECD: 06/06/17 STATUS: SOUT _ ORDERED: TP IMAGE ANAL, HPV/Thin Prep COMMENTS: [id number] Negative for Intraepithelial lesion or Malignancy A. Ectocervical/Endocervical Specimen Adequacy: Satisfactory of evaluation Transformation zone component identified Patient Information: HPV: High risk HPV RNA testing regardless of pap results. Actual Specimen Date: 06/06/17 LMP If Unknown: age 51 ?: N Post Menopausal?: Y Hysterectomy?: N Previous Abnormal Pap Smears?:N Date Time Test Result Flag (u) Normal Range 06/06/171209 @ HPV RNA Negative Negative @ @ The high-risk HPV types detected by the assay include: 16, @ 18, 31, 33, 35, 39, 45, 51, 52, 56, 58, 59, 66, and 68. Signed (signature on file) AIDEE Wilson(ASCP) 06/07 5210 This Pap test was evaluated with the assistance of the EasyProvePrep Test Imaging System. Due to cytologic findings at the check inspector microscope, comprehensive manual rescreening by a Airline Ticket Agent may be required. The Pap Smear is a screening test designed to aid in the detection of premalignant and malignant conditions of the uterine cervix. It is not a diagnostic procedure and should not be used as the sole means of detecting cervical cancer. Both false- positive and false- negative reports do occur. Depending on your risk status, a Pap smear should be obtained and evaluated every 1-3 years. END OF REPORT * ML=Testing performed at Main Lab DEPARTMENT OF PATHOLOGY, [address] [place] [address] Isacc Brumfield M.D. Director [facility] # [id number] 2 SEE RESULT BELOW Name: PARIS SAINI : [address]: Lukas Desir MD Acct: [id number] Unit: [id number] AGE: 56 Location: [facility] Re04/05/17 SEX: F Status: DEP REF SPEC: [id number] MATTHEW: 04/04/17- SUBM DR: Lukas Desir MD REQ: [id number] RECD: 04/05/17-1199 STATUS: RONALDO JENKINS DR: Piero Garcia MD _ ORDERED: LEVEL 4 FINAL DIAGNOSIS Colon, rectum, biopsy: -- Hyperplastic polyps (2). CLINICAL HISTORY Gas, bloating POST-OPERATIVE DIAGNOSIS Colonoscopy to cecum ? 2 rectal polyps; 5 years GROSS DESCRIPTION The specimen is received in formalin labeled, Biopsy Rectal Polyps, and consists of two armstrong to speckled armstrong-red irregular to polypoid soft tissue fragments measuring 0.3 x 0.2 x 0.1 cm and 0.3 x 0.2 x 0.2 cm which are submitted entirely in one cassette. Signed (signature on file) Amanda Mccann MD 03/13 1153 END OF REPORT * ML=Testing performed at Main Lab DEPARTMENT OF PATHOLOGY, [address] [place] [address] Isacc Brumfield M.D. Director [facility] # [id number] 3 SEE RESULT BELOW Name: PARIS SAINI : [address]: Piero Garcia MD Acct: [id number] Unit: [id number] AGE: 56 [facility] SEX: F Status: REG REF SPEC: [id number] MATTHEW: 01/19/17-[address] [facility] [address]: Piero Garcia MD REQ: [id number] RECD: 01/19/17 STATUS: COMP _ SOURCE: STOOL SPDESC: ORDERED: Giardia Antigen Procedure Result Reported Site Giardia Antigen Screen Final 01/22/17- 1202 ML Organism 1 Negative Giardia Giardia antigen testing performed by enzyme immunoassay. If patient is immunocompromised or has traveled to or is from a developing country, a full ova and parasite exam with microscopic (OPMIC) is recommended. All samples will be held one month in case full ova and parasite testing is requested. Contact the Microbiology Department at [phone]. * ML - [facility] . END OF REPORT * ML=Testing performed at Main Lab DEPARTMENT OF PATHOLOGY, [address] [place] [address] Isacc Brumfield M.D. Director [facility] # [id number] 4 Because ethnic data is not always readily available, this report includes an eGFR for both -Americans and non- Americans. The National Kidney Disease Education Program (NKDEP) does not endorse the use of the MDRD equation for patients that are not between the ages of 18 and 70, are , have extremes of body size, muscle mass, or nutritional status, or are non- or non-. According to the National Kidney Foundation, irrespective of diagnosis, the stage of the disease is based on the level of kidney function: Stage Description GFR(mL/min/1.73 m(2)) 1 Kidney damage with normal or decreased GFR 90 2 Kidney damage with mild decrease in GFR 60-89 3 Moderate decrease in GFR 30-59 4 Severe decrease in GFR 15-29 5 Kidney failure <15 (or dialysis) 5 Desirable <150 Borderline high 150-199 High 200-499 Very High >500 6 Desirable <200 Borderline high 200-239 High >239 7 Low <40 Desirable: 40-60 High: >60 8 Desirable: <100 mg/dL Near Optimal: 100-129 mg/dL Borderline High: 130-159 mg/dL High: 160-189 mg/dL Very High: >189 mg/dL 9 [facility] Severe Sepsis and Septic Shock Management Bundle Measure requires all lactic acids initially measuring >2.0 mmol/L be repeated. 10 >100 to <200 pg/mL: likely compensated congestive heart failure (CHF) 200 to 400 pg/mL: likely moderate CHF >400 pg/mL: likely moderate to severe CHF 11 99th percentile=0.04 ng/mL Troponin results at [facility] are not interchangeable. 12 Because ethnic data is not always readily available, this report includes an eGFR for both -Americans and non- Americans. The National Kidney Disease Education Program (NKDEP) does not endorse the use of the MDRD equation for patients that are not between the ages of 18 and 70, are , have extremes of body size, muscle mass, or nutritional status, or are non- or non-. According to the National Kidney Foundation, irrespective of diagnosis, the stage of the disease is based on the level of kidney function: Stage Description GFR(mL/min/1.73 m(2)) 1 Kidney damage with normal or decreased GFR 90 2 Kidney damage with mild decrease in GFR 60-89 3 Moderate decrease in GFR 30-59 4 Severe decrease in GFR 15-29 5 Kidney failure <15 (or dialysis) 13 99th percentile=0.04 ng/mL Troponin results at [facility] are not interchangeable. 14 FASTING 15 Desirable <150 Borderline high 150-199 High 200-499 Very High >500 16 Desirable <200 Borderline high 200-239 High >239 17 Low <40 Desirable: 40-60 High: >60 18 Desirable: <100 mg/dL Near Optimal: 100-129 mg/dL Borderline High: 130-159 mg/dL High: 160-189 mg/dL Very High: >189 mg/dL 19 Desirable <150 Borderline high 150-199 High 200-499 Very High >500 20 Desirable <200 Borderline high 200-239 High >239 21 Low <40 Desirable: 40-60 High: >60 22 Desirable: <100 mg/dL Near Optimal: 100-129 mg/dL Borderline High: 130-159 mg/dL High: 160-189 mg/dL Very High: >189 mg/dL 23 Because ethnic data is not always readily available, this report includes an eGFR for both -Americans and non- Americans. The National Kidney Disease Education Program (NKDEP) does not endorse the use of the MDRD equation for patients that are not between the ages of 18 and 70, are , have extremes of body size, muscle mass, or nutritional status, or are non- or non-. According to the National Kidney Foundation, irrespective of diagnosis, the stage of the disease is based on the level of kidney function: Stage Description GFR(mL/min/1.73 m(2)) 1 Kidney damage with normal or decreased GFR 90 2 Kidney damage with mild decrease in GFR 60-89 3 Moderate decrease in GFR 30-59 4 Severe decrease in GFR 15-29 5 Kidney failure <15 (or dialysis) 24 Results suggest response to immunization or prior exposure to the virus. REFERENCE VALUE Vaccinated: Positive (>=1.1 AI) Unvaccinated: Negative (<=0.8 AI) 25 Test Performed by: [place] [address] Regional Project Manager: Keyshawn Ramires II, M.D., Ph.D. 26 Results suggest response to immunization or prior exposure to the virus. REFERENCE VALUE Vaccinated: Positive (>=1.0 AI) Unvaccinated: Negative (<=0.7 AI) 27 Test Performed by: [place] [address] Regional Project Manager: Keyshawn Ramires II, M.D., Ph.D. 28 Results suggest response to immunization or prior exposure to the virus. REFERENCE VALUE Vaccinated: Positive (>=1.1 AI) Unvaccinated: Negative (<=0.8 AI) 29 Test Performed by: [place] [address] Regional Project Manager: Keyshawn Ramires II, M.D., Ph.D. Procedures Date CPT Code Description Status 07/07/2016 Mammogram Completed 10/26/2013 Mammogram Completed Encounters Type Date Location Provider CPT E/M Dx Office Visit 07/17/2017 8:20a [facility] Piero Garcia, [address]808 M50.10 Medicine - [address] Sanjana F33.0 Office Visit 06/06/2017 11:20a [facility] Amy Wray, [facility] [address] Z01.419 - [address] Z12.31 N95.1 N95.2 Office Visit 05/17/2017 8:20a [facility] Piero Garcia, 30543 M50.10 Medicine - [address] Terra.Edilberto F33.0 Office Visit 04/11/2017 8:00a [facility] Amy Wray, [facility] [address]295 M26.[address] - [address] G50.1 F41.9 Office Visit 04/04/2017 8:00a [facility] Amy Wray, [facility] [address]753 R68.84 - [address] G50.1 Office Visit 03/16/2017 8:40a [facility] Piero Garcia, 59563 M50.10 Medicine - [address] Sanjana F33.0 Office Visit 02/08/2017 11:40a [facility] Piero Garcia 01529 M50.10 Medicine - [place] Allan F33.0 Office Visit 02/01/2017 11:00a [facility] Zach Garcia M.D. 68034 R19.7 Medicine - [address] Office Visit 01/16/2017 11:00a [facility] Zach Garcia M.D. 22627 R19.7 Medicine - [address] R19.7 Office Visit 12/13/2016 1:00p [facility] Zach Garcia 02757 M50.10 Marcelo Simms M.D. F33.0 Office Visit 10/24/2016 11:40a [facility] Zach Garcia 22711 M50.10 Medicine - [place] Office Visit 10/03/2016 1:00p [facility] Zach Garcia 97742 M50.10 Medicine - [address] M.D. F33.0 Office Visit 09/05/2016 4:00p [facility] Piero Garcia, 33801 M50.10 Medicine - [address] M.D. F33.0 Office Visit 08/28/2016 1:20p [facility] [place], [address]108 M50.10 Medicine - [address] M.D. F33.0 Office Visit 08/14/2016 1:20p [facility] Piero [place], 30845 M50.10 Medicine - [address] M.D. F41.9 F33.0 Office Visit 07/26/2016 3:40p [facility] Piero Garcia, 36924 R03.0 - Demi Allan E78.2 Z00.00 Z12.11 Z11.59 F17.210 Office Visit 06/30/2016 9:40a [facility] Piero Garcia, 75053 M50.10 Medicine - [address] M.D. R53.83 Office Visit 05/12/2016 8:20a [facility] Piero Radha, 84296 M50.10 Medicine - [address] M.D. Office Visit 03/17/2016 1:00p [facility] Piero Garcia, 82987 M50.10 Medicine - [address] M.D. Office Visit 01/27/2016 2:40p [facility] Piero Garcia, 51436 E78.2 Medicine - [address] M.D. R03.0 Office Visit 01/20/2016 2:40p [facility] Piero Radha, 74830 M50.10 Medicine - [address] M.D. Office Visit 12/14/2015 2:40p [facility] Piero [place], 92465 M50.10 Medicine - [address] M.D. Office Visit 11/24/2015 4:20p [facility] Piero [place], 08273 M50.10 Medicine - [address] M.D. Office Visit 09/22/2015 8:40a [facility] Piero Garcia, 29955 M50.10 Medicine - [address] M.D. Office Visit 09/02/2015 2:40p [facility] Piero Garcia, 13413 M50.10 Medicine - [address] M.D. Office Visit 08/18/2015 4:00p [facility] Piero Garcia, 49471 J20.9 Medicine - [place] M.D. Office Visit 08/02/2015 1:00p [facility] Piero Garcia, 64056 M50.10 Medicine - [address] M.D. Office Visit 07/27/2015 3:40p [facility] Piero Garcia, 54496 E78.2 Medicine - [address] M.D. E66.9 Office Visit 07/15/2015 10:40a [facility] Piero Garcia, 31119 M50.10 Medicine - [address] M.D. Office Visit 07/13/2015 11:00a [facility] Piero Garcia, 57279 Z00.00 Medicine - [address] M.D. F17.210 Z13.220 Z13.1 Z23 Z11.1 Office Visit 07/12/2015 2:00p [facility] Carson Knapp, 56467 M47.812 Of Jordi Allan Office Visit 07/08/2015 2:20p [facility] Piero Garcia, 77153 M50.10 - [address] M.D. Office Visit 06/21/2015 2:00p [facility] [place] [address] M54.2 - [address] Office Visit 06/07/2015 1:40p [facility] [place] [address] M54.2 - [address] Office Visit 05/31/2015 4:20p [facility] Piero Garcia, 67110 M54.2 - [address] M.D. M54.6 Office Visit 05/18/2015 2:40p [facility] Piero Garcia M.D. 98586 M54.2 Medicine - [address] M54.6 Office Visit 05/04/2015 1:40p [facility] Piero Garcia M.D. 93517 M54.2 Medicine - [address] M54.6 Plan of Care Future Appointment(s):09/14/2017 10:20 am - Piero Garcia M.D. at [facility] - [address]07/23/2017 - Carson Garcia M.D.G50.1 Atypical facial painFollow up:PRNM54.2 OcqsegrpibxF44.7 Fibromyalgia
[2017-08-22 13:49] VITALS: BP 147/93
--- NOTE | 2017-08-22 15:12 | UC ---
Abdominal Pain Female HPI - HPI Summary HPI Summary: ABOUT A WEEK OF CHILLS AND MALAISE. IS HAVING INTERMITTENT HOT FLASHES AND SWEATS. REPORTS COPIOUS WATERY DIARRHEA FOR THE PAST 3 DAYS. HAS FELT TOO UNWELL TO TAKE ANY OF HER MEDS FOR THE PAST 6 DAYS - SERTRALINE, LYRICA, METHOCARBAMOL, TRAMADOL, MELOXICAM, HYOSCYAMINE. PT IS EXTREMELY ANXIOUS AND TEARFUL. BREATHING HEAVILY. FEELS NAUSEATED AND DIZZY - NOT EATING OR DRINKING MUCH RECENTLY. FEELS SHE CAN NOT THINK STRAIGHT. - History of Current Complaint Chief Complaint: UCGI Stated Complaint: CHILLS,DIAREEHA Time Seen by Provider: 08/22/17 14:44 Hx Obtained From: Patient Hx Last Menstrual Period: menopausal Onset/Duration: Gradual Onset, Lasting Days, Still Present Severity Initially: Moderate Severity Currently: Moderate Pain Intensity: 6 Pain Scale Used: 0-10 Numeric Location: Diffuse Radiates: No Character: Cramping, Sharp Aggravating Factor(s): Food Alleviating Factor(s): Nothing Associated Signs and Symptoms: Positive: Dizzy, Blood in Stool, Decreased Appetite, Nausea, Diarrhea Allergies/Adverse Reactions: Allergies Allergy/AdvReac Type Severity Reaction Status Date / Time codeine Allergy Severe See Comment Verified 08/22/17 13:49 hydrocodone Allergy Severe See Comment Verified 08/22/17 13:49 oxycodone Allergy Severe See Comment Verified 08/22/17 13:49 PMH/Surg Hx/FS Hx/Imm Hx - Additional Past Medical History Additional PMH: CHRONIC NECK PAIN Psychological History: Anxiety - Surgical History Surgical History: Yes Surgery Procedure, Year, and Place: 1993 & 1995 - [facility]. CERVICAL NECK SURGERY - 2002. D&C - Family History Known Family History: Positive: Other - breast CA, bone CA, leukemia - Social History Alcohol Use: None Substance Use Type: Marijuana Substance Use Comment - Amount & Last Used: Medical Marijuana Smoking Status (MU): Former Smoker Type: Cigarettes Have You Smoked in the Last Year: Yes Household Exposure Type: Cigarettes Review of Systems Constitutional: Chills, Fatigue, Other - HOT FLASHES ENT: Negative Respiratory: Negative Cardiovascular: Negative Gastrointestinal: Abdominal Pain, Diarrhea, Nausea Genitourinary: Negative Neurological: Weakness, Other - DIZZY Psychological: Anxious All Other Systems Reviewed And Are Negative: Yes Physical Exam Triage Information Reviewed: Yes Appearance: Well-Nourished, Pain Distress - MODERATE, Other: - PT ANXIOUS, TEARFUL, BREATHING HEAVILY Vital Signs: Initial Vital Signs Temp 98.2 F 08/22/17 13:39 Pulse 76 08/22/17 13:39 Resp 17 08/22/17 13:39 BP 147/93 08/22/17 13:39 Pulse Ox 100 08/22/17 13:39 Vital Signs Reviewed: Yes Eyes: Positive: Conjunctiva Clear ENT: Positive: Hearing grossly normal, Other - MUCOUS MEMBRANES RELATIVELY DRY Neck: Positive: Supple Respiratory: Positive: Lungs clear, Normal breath sounds, Other: - PT BREATHING HEAVILY. Negative: Crackles, Stridor, Wheezing Cardiovascular Exam: Normal Abdomen Description: Positive: Soft Musculoskeletal: Positive: No Edema Neurological: Positive: Alert, Other: - ANXIOUS Psychological: Positive: Age Appropriate Behavior Skin: Negative: rashes Abd Pain Female Course/Dx - Course Course Of Treatment: DURING ENCOUNTER PT IS VISIBLY ANXIOUS. HAD SUDDEN ONSET OF A HOT FLASH AND BECAME TEARFUL AND STARTED HYPERVENTILATING. REPORTS FEELING EXTREMELY UNWELL. FEELS SHE CAN NOT THINK STRAIGHT. TO [facility] BY AMBULANCE - Differential Dx/Diagnosis Provider Diagnoses: DEHYDRATION/DIARRHEA - Physician Notification/Consults Discussed Care of Patient With: Carlie Moctezuma - TO [facility] BY AMBULANCE Time Discussed With Above Provider: 15:15 Instructed by Provider To: MD Will See In ED Discharge - Sign-Out/Discharge Documenting (check all that apply): Discharge - Discharge Plan Condition: Stable Disposition: TRANS HIGHER LVL OF CARE FAC Referrals: Piero Garcia MD [Primary Care Provider] - - Billing Disposition and Condition Condition: STABLE Disposition: EMTALA
[2017-08-22] MEDS ORDERED: NS 0.9% 1000 ML* 1,000 ML IV SCH (15:15)
== END 2017-08-22 15:30 | disposition short-term general hospital (02) ==
LOC: UCEAST 13:36
DX: E86.0 Dehydration (principal); R19.7 Diarrhea, unspecified; R42 Dizziness and giddiness; K92.1 Melena; R11.0 Nausea; M54.2 Cervicalgia; F41.9 Anxiety disorder, unspecified; Z88.5 Allergy status to narcotic agent; Z87.891 Personal history of nicotine dependence
CPT/HCPCS: 99213; G0463

== ENCOUNTER 2019-01-05 14:33 | Emergency (ER) | payer OTHER ==
--- NOTE | 2019-01-05 14:34 | UC ---
Respiratory Complaint HPI - HPI Summary HPI Summary: 58 yo female presents with cough for the last 3 weeks. Cough is intermittently productive. She has been taking robitussin with mild relief at first, but no longer helping much. She smokes medical marijuana, but no cigarettes. She denies fever, chills, sinus symptoms, sore throat, SOB, chest pain. - History of Current Complaint Stated Complaint: COUGH Time Seen by Provider: 01/05/19 14:33 Hx Obtained From: Patient Hx Last Menstrual Period: menopausal Onset/Duration: Gradual Onset Severity Initially: Mild Severity Currently: Mild Pain Intensity: 3 Pain Scale Used: 0-10 Numeric - Allergies/Home Medications Allergies/Adverse Reactions: Allergies Allergy/AdvReac Type Severity Reaction Status Date / Time codeine Allergy Severe nightmares, Verified 12/03/18 08:53 nausea,vomiting hydrocodone Allergy Severe Nausea And Verified 12/03/18 08:53 Vomiting, nightmares oxycodone Allergy Severe nightmares, Verified 12/03/18 08:53 nause, vomiting PMH/Surg Hx/FS Hx/Imm Hx - Additional Past Medical History Additional PMH: IBS Fibromyalgia Psychological History: Depression - Surgical History Surgical History: Yes Surgery Procedure, Year, and Place: 1993 & 1995 - [facility]. CERVICAL NECK SURGERY - 2002. D&C - Family History Known Family History: Positive: Other - breast CA, bone CA, leukemia - Social History Occupation: Employed Full-time Lives: With Family Alcohol Use: None Substance Use Type: None Substance Use Comment - Amount & Last Used: In the past she states Smoking Status (MU): Never Smoked Tobacco Type: Cigarettes Have You Smoked in the Last Year: Yes Household Exposure Type: Cigarettes - Immunization History Most Recent Influenza Vaccination: unk Most Recent Pneumonia Vaccination: unk Review of Systems All Other Systems Reviewed And Are Negative: Yes Constitutional: Positive: Negative Skin: Positive: Negative Eyes: Positive: Negative ENT: Positive: Negative Respiratory: Positive: Cough Cardiovascular: Positive: Negative Gastrointestinal: Positive: Negative Neurological: Positive: Negative Psychological: Positive: Negative Physical Exam - Summary Physical Exam Summary: GENERAL: NAD. WDWN. No pain distress. SKIN: No rashes, sores, lesions, or open wounds. HEENT: Head: AT/NC Eyes: Conjunctiva clear without inflammation or discharge. Ears: Hearing grossly normal. TMs intact, no bulging, erythema, or edema. Nose: Nasal mucosa pink and moist. NTTP maxillary and frontal sinus. Throat: Posterior oropharynx without exudates, erythema, or tonsillar enlargement. Uvula midline. NECK: Supple. Nontender. No lymphadenopathy. CHEST: Moderate coarse breath sounds at lung bases. No accessory muscle use. Breathing comfortably and in no distress. CV: RRR. Without m/r/g. Pulses intact. Cap refill <2seconds NEURO: Alert. PSYCH: Age appropriate behavior. Triage Information Reviewed: Yes Vital Signs: Vital Signs: Temp Pulse Resp BP Pulse Ox 99.0 F 87 18 152/93 98 01/05/19 14:42 01/05/19 14:42 01/05/19 14:42 01/05/19 14:42 01/05/19 14:42 Vital Signs Reviewed: Yes Respiratory Course/Dx - Course Course Of Treatment: CXR:IMPRESSION: #. Stigmata of obstructive lung disease. No acute pulmonary or cardiac process evident. Suspect bronchitis. Given her prolonged symptoms and exam today, will treat with anbx. - Differential Dx/Diagnosis Provider Diagnosis: Bronchitis Discharge - Sign-Out/Discharge Documenting (check all that apply): Patient Departure All imaging exams completed and their final reports reviewed: Yes - Discharge Plan Condition: Stable Disposition: HOME Prescriptions: Amoxicillin/Clavulanate TAB* [Augmentin TAB 875*] 875 mg PO BID #14 tab predniSONE TAB* [Deltasone 20 MG TAB*] 40 mg PO DAILY #10 tab Patient Education Materials: Acute Bronchitis (ED) Referrals: Cassandra Guzman MD [Primary Care Provider] - Additional Instructions: If you develop a fever, shortness of breath, chest pain, new or worsening symptoms - please call your PCP or go to the ED immediately. Your blood pressure was high at todays visit. Please see your primary provider within 4 weeks for recheck and re-evaluation. - Billing Disposition and Condition Condition: STABLE Disposition: Home - Attestation Statements Provider Attestation: I was available for consult. This patient was seen by the YARED. The patient was not presented to, seen by, or examined by me. -Kelin
[2019-01-05 14:45] VITALS: BP 152/93
== END 2019-01-05 15:28 | disposition home or self-care (01) ==
LOC: UCEAST 14:33
DX: J40 Bronchitis, not specified as acute or chronic (principal)
CPT/HCPCS: 71046; 99212; G0463

== ENCOUNTER 2019-02-16 09:57 | Inpatient (IN) | payer MEDICARE, OTHER ==
[2019-02-16] MEDS ORDERED: Ketorolac INJ* 30 MG/ML 1 ML VIAL IV PUSH ONE (10:07)
[2019-02-16 10:21] LABS: ABS Basophils 0.1 10^3/ul (0-0.2); ABS Eosinophils 0.1 10^3/ul (0-0.6); ABS Lymphocytes 1.5 10^3/ul (1.0-4.8); ABS Monocytes 0.4 10^3/ul (0-0.8); ABS Neutrophils 10.1 10^3/ul (1.5-7.7); Eosinophil % 0.7 %; Hematocrit 41 % (35-47); Hemoglobin 14.1 g/dL (12.0-16.0); Lymphocyte % 12.4 %; Mean Corpuscular HGB Conc 34 g/dL (31-36); Mean Corpuscular Hemoglobin 32 pg (27-31); Mean Corpuscular Volume 92 fL (80-97); Platelet Count 323 10^3/uL (150-450); Red Blood Count 4.46 10^6 /uL (3.70-4.87); Red Cell Distribution Width 13 % (10-15); White Blood Count 12.2 10^3/uL (3.5-10.8)
--- NOTE | 2019-02-16 10:31 | ED ---
HPI Chest Pain - HPI Summary HPI Summary: This patient is a 58 year old F arriving via ambulance to [facility] with a chief complaint of chest pain since December 2018 since worsened. Patient states that one month ago she fell on the side walk and was seen [facility] December as a result. Patient states that she has has shortness of breath ever since. Patient states that until recently she has not experience chest pain. Patient characterizes her pain as sharp. Patient states that breathing makes the pain worse. The patient rates the pain 8/10 in severity. Symptoms aggravated by breathing. Symptoms alleviated by nothing. Patient reports shortness of breath and nausea. Patient denies receiving a stress test as well as any history of cardiac problems. Patient denies FHx of diabetes. Patient reports FHx of hypertension. - History of Current Complaint Chief Complaint: EDChestWallPain Time Seen by Provider: 02/16/19 09:58 Hx Obtained From: Patient Hx Last Menstrual Period: menopausal Onset/Duration: Started Weeks Ago - December 2018, Still Present Timing: Constant Current Severity: Moderate Pain Intensity: 8 Pain Scale Used: 0-10 Numeric Chest Pain Location: Mid Sternal Chest Pain Radiates: No Character: Sharp/Stabbing Aggravating Factor(s): Exertion, Movement Alleviating Factor(s): Nothing Associated Signs and Symptoms: Positive: Chest Pain, Shortness of Breath - Additional Pertinent History Primary Care Physician: [id number] - Allergy/Home Medications Allergies/Adverse Reactions: Allergies Allergy/AdvReac Type Severity Reaction Status Date / Time codeine Allergy Severe nightmares, Verified 01/21/19 11:54 nausea,vomiting hydrocodone Allergy Severe Nausea And Verified 01/21/19 11:54 Vomiting, nightmares oxycodone Allergy Severe nightmares, Verified 01/21/19 11:54 nause, vomiting cisneros wool Allergy Hives Uncoded 01/21/19 11:54 Home Medications: Home Medications Acetaminophen TAB* [Tylenol TAB*] 325 mg PO Q6H PRN 02/16/19 [History Confirmed 02/16/19] Lisinopril TAB* [Prinivil TAB*] 5 mg PO DAILY 02/16/19 [History Confirmed ] PMH/Surg Hx/FS Hx/Imm Hx Endocrine/Hematology History: Denies: Hx Diabetes, Hx Thyroid Disease Cardiovascular History: Reports: Hx Hypertension - ON MEDS Denies: Hx Pacemaker/ICD Respiratory History: Denies: Hx Asthma, Hx Chronic Obstructive Pulmonary Disease (COPD) GI History: Reports: Hx Irritable Bowel, Other GI Disorders - Hx of H Pylori Denies: Hx Ulcer History: Denies: Hx Renal Disease Musculoskeletal History: Reports: Hx Back Problems - cervical spine Sensory History: Denies: Hx Contacts or Glasses, Hx Hearing Aid Opthamlomology History: Denies: Hx Contacts or Glasses Psychiatric History: Reports: Hx Depression Denies: Hx Panic Disorder - Surgical History Surgical History: Yes Surgery Procedure, Year, and Place: 1993 & 1995 - [facility]. CERVICAL NECK SURGERY - 2002. D&C Infectious Disease History: No Infectious Disease History: Reports: Hx Hepatitis - Hep B Denies: Hx Clostridium Difficile, Hx Human Immunodeficiency Virus (HIV), Hx of Known/Suspected MRSA, Hx Shingles, Hx Tuberculosis, Hx Known/Suspected VRE, Hx Known/Suspected VRSA, History Other Infectious Disease, Traveled Outside the [place] in Last 30 Days - Family History Known Family History: Positive: Other - breast CA, bone CA, leukemia - Social History Alcohol Use: Rare Hx Substance Use: Yes Substance Use Type: Reports: Marijuana Substance Use Comment - Amount & Last Used: In the past she states Hx Tobacco Use: No Smoking Status (MU): Never Smoked Tobacco Type: Cigarettes Have You Smoked in the Last Year: Yes Review of Systems Positive: Chest Pain Positive: Shortness Of Breath Positive: Nausea All Other Systems Reviewed And Are Negative: Yes Physical Exam - Summary Physical Exam Summary: VITAL SIGNS: Reviewed. GENERAL: Patient is a well-developed and nourished FEMALE who is lying comfortable in the stretcher. Patient is not in any acute respiratory distress. HEAD AND FACE: No signs of trauma. No ecchymosis, hematomas or skull depressions. No sinus tenderness. EYES: PERRLA, EOMI x 2, No injected conjunctiva, no nystagmus. EARS: Hearing grossly intact. Ear canals and tympanic membranes are within normal limits. MOUTH: Oropharynx within normal limits. NECK: Supple, trachea is midline, no adenopathy, no JVD, no carotid bruit, no c- spine tenderness, neck with full ROM. CHEST: Symmetric, retrosternal pain in the retrosternal area of chest. LUNGS: Clear to auscultation bilaterally. No wheezing or crackles. CVS: Regular rate and rhythm, S1 and S2 present, no murmurs or gallops appreciated. ABDOMEN: Soft, non-tender. No signs of distention. No rebound, no guarding, and no masses palpated. Bowel sounds are normal. EXTREMITIES: FROM in all major joints, no edema, no cyanosis or clubbing. NEURO: Alert and oriented x 3. No acute neurological deficits. Speech is normal and follows commands. SKIN: Dry and warm. Triage Information Reviewed: Yes Vital Signs On Initial Exam: Initial Vitals Temp Pulse Resp BP Pulse Ox 97.2 F 77 20 142/105 100 02/16/19 09:57 02/16/19 09:57 02/16/19 09:57 02/16/19 09:57 02/16/19 09:57 Vital Signs Reviewed: Yes Diagnostics - Vital Signs Vital Signs Temp Pulse Resp BP Pulse Ox 02/16/19 10:14 100 02/16/19 10:10 71 18 99 02/16/19 09:57 97.2 F 77 20 142/105 100 - Laboratory Lab Results: Lab Results 02/16/19 Range/Units 10:14 WBC 12.2 H (3.5-10.8) 10^3/uL RBC 4.46 (3.70-4.87) 10^6 /uL Hgb 14.1 (12.0-16.0) g/dL Hct 41 (35-47) % MCV 92 (80-97) fL MCH 32 H (27-31) pg MCHC 34 (31-36) g/dL RDW 13 (10-15) % Plt Count 323 (150-450) 10^3/uL MPV 8.0 (7.4-10.4) fL Neut % (Auto) 82.8 % Lymph % (Auto) 12.4 % [place] % (Auto) 3.2 % Eos % (Auto) 0.7 % Baso % (Auto) 0.9 % Absolute Neuts (auto) 10.1 H (1.5-7.7) 10^3/ul Absolute Lymphs (auto) 1.5 (1.0-4.8) 10^3/ul Absolute Monos (auto) 0.4 (0-0.8) 10^3/ul Absolute Eos (auto) 0.1 (0-0.6) 10^3/ul Absolute Basos (auto) 0.1 (0-0.2) 10^3/ul Absolute Nucleated RBC 0.0 10^3/ul Nucleated RBC % 0.0 Result Diagrams: 02/17/19 05:28 02/17/19 05:28 Lab Statement: Any lab studies that have been ordered have been reviewed, and results considered in the medical decision making process. - Radiology Sternum Xray Radiology Interpretation Completed By: Radiologist Summary of Radiographic Findings: Sternum Xray reveals, per radiologist, IMPRESSION: No displaced sternal fracture. ED Physician has reviewed this report. Chest Xray Radiology Interpretation Completed By: Radiologist Summary of Radiographic Findings: Chest Xray reveals, per radiologist, IMPRESSION: HYPOINFLATED LUNGS WITH NO FOCAL AIRSPACE OPACIFICATION. ED Physician has reviewed this report. - EKG 0955 Cardiac Rate: NL EKG Rhythm: Sinus Rhythm - 77 bpm Summary of EKG Findings: EKG reveals a sinus rhythm of [address] elevations and normal axis. No prior EKG comparison. Re-Evaluation - Re-Evaluation First Eval Re-Evaluation Time: 10:55 Change: Worse Comment: Dr. Solano was made aware of patient's troponin levels which were at 2.16. Dr. Solano ordered a second troponin. Second Eval Re-Evaluation Time: 10:57 Change: Worse Comment: Patient's second troponin at this time is 2.13. Chest Pain Course/Dx - Course Assessment/Plan: 58-year-old female who presents to the emergency department with a chief complaint of retrosternal chest pain. Patient reports that she has a sharp pain for approximately a month. She reports that the pain has been present since she fell and he hit her chest. The pain is sharp 7-8 out of 10. In the physical exam the pain is reproducible. Initially the patient was given Toradol for pain. Blood test results CBC were normal limits except for WBCs of 12.2, glucose 143, CK-MB of 21.8, troponin of 2.13. Therefore, the patient was given aspirin, Lopressor and nitroglycerin. I discussed my physical exam and findings with Dr. Little for cardiology who recommends only Lovenox 1 mg per KG and admission to the hospitalist. I discussed my physical exam and findings with Dr. Mcleod from the hospital services who accepted the patient for admission. - Diagnoses Provider Diagnoses: NSTEMI (non-ST elevated myocardial infarction) Is Visit Related: No - Provider Notifications Discussed Care Of Patient With: Yasmany Little - Cardiology Time Discussed With Above Provider: 10:59 Instructed by Provider To: Other - Dr. Solano discussed patients care with Dr. Little at this time. 1106 Dr. Little was made aware of patients troponin levels and recommends patient be admitted to [facility] with Levonox. 1120 Patient is accepted for admission by Dr. Mcleod. - Critical Care Time Critical Care Time: 30-74 min Discharge ED - Sign-Out/Discharge Documenting (check all that apply): Patient Departure - admitted Patient Received Moderate/Deep Sedation with Procedure: No - Discharge Plan Condition: Stable Disposition: ADMITTED TO [facility] - Billing Disposition and Condition Condition: STABLE Disposition: Admitted to [facility] - Attestation Statements Document Initiated by [place]: Yes Documenting Scribe: Afshan Herzog Provider For Whom Scribe is Documenting (Include Credential): Dr. Kevin Solano MD Scribe Attestation: Afshan Davison scribed for Dr. Kevin Solano MD on 02/17/19 at 1019. Scribe Documentation Reviewed: Yes Provider Attestation: The documentation as recorded by the Afshan hussein accurately reflects the service I personally performed and the decisions made by , Dr. Kevin Solano MD Status of Scribe Document: Viewed
[2019-02-16 10:38] LABS: ALT 15 U/L (7-52); AST 27 U/L (13-39); Albumin 4.5 g/dL (3.2-5.2); Albumin/Globulin Ratio 1.4 (1-3); Alkaline Phosphatase 102 U/L (34-104); Anion Gap 9 mmol/L (2-11); BUN/Creatinine Ratio 16.5 (8-20); Blood Urea Nitrogen 15 mg/dL (6-24); CO2 Carbon Dioxide 24 mmol/L (22-32); Chloride 104 mmol/L (101-111); Creatine Kinase 161 U/L (10-223); EGFR African American 76.6 (>60); EGFR Non-African American 63.3 (>60); Globulin 3.2 g/dL (2-4); Glucose 143 mg/dL (70-100); Potassium 3.9 mmol/L (3.5-5.0); Sodium 137 mmol/L (135-145); Total Protein 7.7 g/dL (6.4-8.9)
[2019-02-16 10:44] LABS: CKMB ng/mL 21.8 ng/mL (0.6-6.3)
[2019-02-16] MEDS ORDERED: Metoprolol Tartrate TAB* 25 MG PO ONE (10:59)
[2019-02-16] MEDS ORDERED: Aspirin 81 mg CHEW TAB* 81 MG TAB.CHEW PO ONE (10:59)
[2019-02-16 11:04] LABS: TSH (Thyroid Stimulating Horm) 2.05 mcIU/mL (0.34-5.60)
[2019-02-16] MEDS ORDERED: Nitro 2% OINT* (Nitroglycerin) 1 INCH/PAK PAK ONE (11:07)
[2019-02-16] MEDS ORDERED: Enoxaparin(*) 80 MG/0.8 ML SYR SUBCUT ONE ×2 (11:07→23:00)
[2019-02-16 11:37] LABS: Troponin I 2.17 ng/mL (<0.04)
[2019-02-16] MEDS ORDERED: Nitro 2% OINT* (Nitroglycerin) 1 INCH/PAK PAK TOPICAL SCH (12:00)
[2019-02-16 13:27] LABS: Troponin I 3.31 ng/mL (<0.04)
[2019-02-16] MEDS ORDERED: Iohexol 350* (CONTRAST) 500 ML MDV IV ONE (13:47)
[2019-02-16] MEDS: Acetaminophen TAB* 325 MG PO PRN (15:30)
[2019-02-16] MEDS: Metoprolol Tartrate TAB* 25 MG PO SCH (15:31)
[2019-02-16 17:08] LABS: Troponin I 4.44 ng/mL (<0.04)
[2019-02-16] MEDS ORDERED: Aspirin TAB* 325 MG PO ONE (17:16)
[2019-02-16] MEDS ORDERED: Ondansetron INJ* 2 MG/ML VIAL IV ONE (17:17)
[2019-02-16] MEDS ORDERED: Metoprolol Tartrate IV* 1 MG/ML 5 ML VIAL IV ONE ×3 (17:20→20:38)
--- NOTE | 2019-02-16 17:22 | CONSULT ---
Subjective Date of Service: 02/16/19 Interval History: Date of admission and consult: 02/16/2019 Service: Hospitalist CC: Chest pain Reason for consult: Chest pain and elevated troponin HPI: Paris Beach is a 58 year old woman with a pmhx as below. She has been under a lot of stress recently related to the murder of her daughter, marriage or her son, and social security disability. She had bronchitis in November and a fall while running outside 1 month ago. She has not felt right since then. She has had intermittent pleuritic central chest and left trapezius pain. She has had dyspnea. This culminated today in severe pain, generally feeling "terrible", vomiting, worsening dyspnea and inability to care for self. She was initially suspected to have musculoskeletal pain and received 30 mg IV toradol in the ER. There may have been some transient pain relief after that but she still has severe pain when breathing deep. A CT PE study did not show a PE. She received aspirin, brilinta, IV and PO metoprol, anticoagulatiion. She continued to have intermittent chest pain dyspnea and ekg changes. She was taken for cardiac catheterization urgently which did not show any obstuctive CAD but did show severe LV systolic dysfunction in pattern consistent with takotsubo cardiomyoapathy and elevated LVEDP. At the recommendation of Dr. Lehman, patient received IV lasix and not fluids post-catheterization for CHF. She had been hypertensive and there no reports of significant MR on LV gram that would suggestive significant LVOT obstruction. PAST MEDICAL HISTORY: IBS fibromyalgia depression. hyperlipidemia PAST SURGICAL HISTORY: Cervical fusion in 2001 She had x2 and D and C. ALLERGIES: CODEINE, OXYCODONE, HYDROCODONE and WOOL. FAMILY HISTORY: Father [place], mother PID SOCIAL HISTORY: disabled. , uses marijuana denied tobacco use to me or excessive alcohol use Medications Active Medications: Acetaminophen (Tylenol Tab*) 650 mg PO Q4H PRN PRN Reason: MILD PAIN or TEMP > 100.4 Last Admin: 02/16/19 15:30 Dose: 650 mg Aspirin (Aspirin Tab*) 650 mg PO ONCE ONE Stop: 02/16/19 17:17 Enoxaparin Sodium (Lovenox(*)) 70 mg SUBCUT Q12H [facility] Lisinopril (Prinivil Tab*) 10 mg PO DAILY [facility] Metoprolol Tartrate (Lopressor Tab*) 25 mg PO Q8H [facility] Last Admin: 02/16/19 15:31 Dose: 25 mg Metoprolol Tartrate (Lopressor Iv*) 5 mg IV ONCE ONE Stop: 02/16/19 17:21 Ondansetron HCl (Zofran Inj*) 4 mg IV ONCE ONE Stop: 02/16/19 17:18 Home Medications: Hyoscyamine ER (NF) [Levbid (NF)] 0.375 mg PO BID 04/02/17 [History Confirmed ] Sertraline* [Zoloft*] 200 mg PO DAILY 04/02/17 [History Confirmed 02/16/19] Pregabalin [Lyrica] 75 mg PO QID 08/22/17 [History Confirmed 02/16/19] Tramadol HCl [Ultram] 50 mg PO QID PRN 10/10/17 [History Confirmed 02/16/19] Baclofen TAB* [Lioresal TAB*] 10 mg PO TID PRN 03/26/18 [History Confirmed 02/16] Meloxicam 7.5 mg PO BID 08/16/18 [History Confirmed 02/16/19] OLANzapine TAB* [Zyprexa 10 MG TAB*] 10 mg PO DAILY 09/30/18 [History Confirmed 02/16/19] buPROPion TAB* [Wellbutrin TAB*] 100 mg PO DAILY 12/03/18 [History Confirmed ] Acetaminophen TAB* [Tylenol TAB*] 325 mg PO Q6H PRN 02/16/19 [History Confirmed 02/16/19] Lisinopril TAB* [Prinivil TAB*] 5 mg PO 2 tablets daily DAILY 02/16/19 [History Confirmed 02/16/19] Review of Systems - Measurements Intake and Output: Intake and Output Last 24 Hours 02/14/19 02/15/19 02/16/19 02/17/19 06:59 06:59 06:59 06:59 Weight 160 lb - Review of Systems Constitutional Symptoms: Positive: Weakness, Fatigue Dermatology: Negative: Rash, Skin Lesions HEENT: Negative: Change in Hearing, Vertigo Eyes: Negative: Change in Vision, Double Vision Thyroid: Negative: Weight Loss, Weight Gain Pulmonary: Positive: Shortness of Breath, Exercise Intolerance Negative: Respiratory Distress, COPD, Asthma, Home Oxygen Cardiology: Positive: Chest Pain, Shortness of Breath Negative: Palpitations, Swelling of Ankles, Peripheral Vascular Dis, Edema, Syncope, Claudication, Paroxysmal Nocturnal Dyspnea, Orthopnea Gastroenterology: Positive: Nausea, Vomiting Negative: Blood in Stools, Haematemesis Genital - Urinary: Negative: Dysuria, Hematuria Musculoskeletal: Negative: Joint Pain, Joint Stiffness Endocrinology: Negative: Obesity, Diabetes, Polydipsia, Polyuria Hematologic/Lymphatic: Negative: Use of Anticoagulant, Use of Antiplatelet Drugs Neurology: Negative: Hx of Stroke\\TIA, Hx Seizures Psychiatry: Negative: Hypomania, Eating Disorders Allergic/Immunologic: Negative: Hx HIV, Immunocompromise Review of Systems Statement: All other review of systems negative, unless stated above. Objective Vital Signs: Temp Pulse Resp BP Pulse Ox 97.2 F 104 16 148/117 94 02/16/19 15:01 02/16/19 17:19 02/16/19 15:01 02/16/19 17:19 02/16/19 17:19 Oxygen Devices in Use Now: Nasal Cannula Appearance: patient appears anxious but not toxic appearing Ears/Nose/Mouth/Throat: Clear Oropharnyx, Mucous Membranes Moist Neck: NL Appearance and Movements; NL JVP, Trachea Midline Respiratory: Clear to Auscultation, - - mild tachypnea and increased work of breathing Cardiovascular: RRR, No Edema, - - no rub or significant murmur Abdominal: NL Sounds; No Tenderness; No Distention Extremities: No Edema Skin: No Rash or Ulcers Neurological: Alert and Oriented x 3 Laboratory Results: 02/16/19 10:14 02/16/19 10:14 Total Bilirubin 0.30 mg/dL (0.2-1.0) 02/16/19 10:14 AST 27 U/L (13-39) 02/16/19 10:14 ALT 15 U/L (7-52) 02/16/19 10:14 Alkaline Phosphatase 102 U/L (34-104) 02/16/19 10:14 CK-MB (CK-2) 21.8 ng/mL (0.6-6.3) H 02/16/19 10:14 B-Natriuretic Peptide 90 pg/mL (<=100) 02/16/19 10:14 Total Protein 7.7 g/dL (6.4-8.9) 02/16/19 10:14 Albumin 4.5 g/dL (3.2-5.2) 02/16/19 10:14 Globulin 3.2 g/dL (2-4) 02/16/19 10:14 Albumin/Globulin Ratio 1.4 (1-3) 02/16/19 10:14 TSH 2.05 mcIU/mL (0.34-5.60) 02/16/19 10:14 02/16/19 02/16/19 02/16/19 10:14 12:49 16:21 Troponin I 2.17 H* 3.31 H* 4.44 H* Diagnostic Imaging: CT PE study 02/16/2019 IMPRESSION: 1. No pulmonary embolism. 2. 1 cm groundglass nodule in the right upper lobe for which follow-up chest CT in 6-12 months is recommended by Fleischner criteria. EKG Data: ekg on admission nsr, twi avl otherwise unremarkable ekg repeat sinus tachycardia 102 bpm, 0.[address] elevation 1 and aVL with TWI ekg repeat 3rd: sinus rhythm 0.[address] elevation anterolateral and /avl Assessment/Plan Paris Beach a 58 year old admitted with takotsubo cardiomyopathy with severely reduced LVEF in setting of multiple psychosocial stressors including recent of her daughter. - Continue BB and AceI, titrate as needed pending BP - Continue PRN IV lasix - Give lovenox therapeutic (ordered) to prevent apical thrombus for duration of hospitalization then change to aspirin at discharge - Can use PRN narcotics to treat pain - As long as remains stable will plan on echo 02/19/2019 to re-evaluate LVEF Thank you for allowing me to participate in the cardiovascular care of this patient. Please do not hesitate to contact me with questions or concerns.
[2019-02-16] MEDS: Lisinopril TAB* 10 MG PO SCH (17:47)
[2019-02-16] MEDS ORDERED: Lisinopril TAB* 10 MG PO SCH (18:00)
[2019-02-16] MEDS ORDERED: Ondansetron INJ* 2 MG/ML VIAL IV PRN (18:22)
[2019-02-16 19:40] LABS: Urine Appearance Clear; Urine Bacteria 1+ (Absent); Urine Bilirubin Negative (Negative); Urine Blood Negative (Negative); Urine Color Yellow; Urine Glucose Negative (Negative); Urine Ketones Negative (Negative); Urine Nitrite Negative (Negative); Urine Protein 1+(30 mg/dL) (Negative); Urine Red Blood Cell 1+(3-5/hpf) (Absent); Urine Specific Gravity > 1.060 (1.010-1.030); Urine Squamous Epithelial Cell Present (Absent); Urine Urobilinogen Negative (Negative); Urine White Blood Cell Trace(0-5/hpf) (Absent)
[2019-02-16 20:29] LABS: C Reactive Protein 12.49 mg/L (<8.01)
[2019-02-16 20:33] LABS: CKMB ng/mL 49.4 ng/mL (0.6-6.3); Troponin I 5.81 ng/mL (<0.04)
[2019-02-16] MEDS ORDERED: Ticagrelor* 90 MG TAB PO ONE (20:35)
--- NOTE | 2019-02-16 21:25 | PN ---
Cardiology Progress Note Date of Service: 02/16/19 Discussed with patients RN and patient on phone. She is with ongoing dyspnea, chest pain and ekg changes despite appropriate medical therapy. I discussed with Dr. Lehman and plan will be cardiac catheterization with intent for revascularization tonight.
[2019-02-16] MEDS: Pregabalin CAP(*) 50 MG PO SCH (21:32)
[2019-02-16] MEDS: traMADol TAB* 50 MG PO PRN (21:33)
[2019-02-16] MEDS ORDERED: Heparin VIAL(*) 5000 UNITS/ML VIAL (FIVE THOUSAND) IV ONE (21:35)
[2019-02-16] MEDS ORDERED: Heparin VIAL(*) 5000 UNITS/ML VIAL (FIVE THOUSAND) ONE (21:38)
[2019-02-16] MEDS ORDERED: Heparin 2 UNITS/ML IVPREMIX* 2,000 ML IV ONE (22:04)
[2019-02-16] MEDS ORDERED: nitroGLYCERIN DRIP* 25,000 MCG/250 ML BTL ONE (22:04)
[2019-02-16] MEDS ORDERED: Lidocaine 1% INJ* 10 MG/ML 30 ML SDV ONE (22:04)
[2019-02-16] MEDS ORDERED: VERAPAMIL 2.5 MG/ML 2 ML VIAL ** 5 mg/2 ml ONE (22:04)
[2019-02-16] MEDS ORDERED: Heparin(*) 1000 UNIT/ML 10 ML VIAL CATH LAB IV ONE (22:04)
[2019-02-16] MEDS ORDERED: Midazolam* 1 MG/ML 5 ML VIAL (5 MG) ONE (22:09)
[2019-02-16] MEDS ORDERED: fentaNYL* 50 MCG/ML 2 ML VIAL (100 MCG VIAL) ONE (22:09)
[2019-02-16 22:14] LABS: ABS Basophils 0.1 10^3/ul (0-0.2); ABS Lymphocytes 2.2 10^3/ul (1.0-4.8); ABS Monocytes 0.9 10^3/ul (0-0.8); ABS Neutrophils 17.8 10^3/ul (1.5-7.7); Hematocrit 43 % (35-47); Hemoglobin 14.7 g/dL (12.0-16.0); Lymphocyte % 10.3 %; Mean Corpuscular HGB Conc 34 g/dL (31-36); Mean Corpuscular Hemoglobin 31 pg (27-31); Mean Corpuscular Volume 93 fL (80-97); Mean Platelet Volume 8.7 fL (7.4-10.4); Platelet Count 409 10^3/uL (150-450); Red Blood Count 4.69 10^6 /uL (3.70-4.87); Red Cell Distribution Width 13 % (10-15)
[2019-02-16 22:28] LABS: Activated Partial Thrombo Time 40.6 seconds (26.0-38.0); INR 0.95 (0.82-1.09)
[2019-02-16 22:30] LABS: LDL Cholesterol Direct 206 mg/dL
[2019-02-16] MEDS ORDERED: Furosemide IV* 10 MG/ML VIAL (40 MG) ONE (22:34)
[2019-02-16 22:38] LABS: Troponin I 5.47 ng/mL (<0.04)
--- NOTE | 2019-02-16 22:43 | HP ---
CC: Dr. Guzman * ADMISSION HISTORY AND PHYSICAL: DATE OF ADMISSION: 02/16/19 CHIEF COMPLAINT: Chest pain. HISTORY OF PRESENT ILLNESS: Ms. Beach is a 58-year-old woman with history of fibromyalgia, who presented to the emergency department this morning complaining of pain in her sternum, left lower chest to left scapula. In fact, this pain started 1 month ago after a fall where she tripped and landed on her left anterior chest. She was seen in urgent care that day and was not followed up with primary care after that. There was an office visit on 01/21/19 in an urgent care that shows that she had a brain CT and a C-spine of her neck on that visit. The patient has been living with this chest pain, but this morning she around 3 to 4 a.m. developed cold sweats and nausea and vomiting, which woke her up. The vomiting worsened the pain in her chest up to 7/10 level and she came to the emergency department. The patient denies any shortness of breath, but she does have increased pain with deep breath and with movement of her arms and torso. The patient denies any palpitations or radiation of the pain to her neck or left arm. In the emergency department, the nitroglycerin patch was tried due to possible angina and this seemed to be helpful for the first hour or so, but then this effect wore off. PAST MEDICAL HISTORY: Includes irritable bowel syndrome with diarrhea as well as fibromyalgia and depression. She also has hyperlipidemia as a risk factor for heart disease. PAST SURGICAL HISTORY: Cervical fusion in 2001 after a workplace accident. She had x2 and D and C in the past. MEDICATIONS ON ADMISSION: 1. Acetaminophen as needed. 2. Baclofen 10 mg p.o. t.i.d. p.r.n. 3. Wellbutrin SR 100 mg p.o. daily. 4. Levbid 0.375 mg p.o. b.i.d. 5. Lisinopril 5 mg p.o. daily. 6. Meloxicam 7.5 mg p.o. b.i.d. 7. Olanzapine 10 mg p.o. daily. 8. Lyrica 75 mg p.o. 4 times a day. 9. Sertraline 200 mg p.o. daily. 10. Tramadol 50 mg p.o. 4 times a day p.r.n. for pain. ALLERGIES: CODEINE, OXYCODONE, HYDROCODONE and WOOL. FAMILY HISTORY: Notable for father who of [place] and mother had peripheral vascular disease and of complications of that. Father also had emphysema and brother of leukemia and a sister of breast cancer. SOCIAL HISTORY: She is disabled. She is . She had 3 kids. Her daughter who was 38 was murdered in [place] in November 2018 and the patient has traveled down there to see to her affairs. REVIEW OF SYSTEMS: The patient denies any fevers, weight loss, or anorexia. The patient denies any peripheral edema. The patient denies any cough, hemoptysis, but she has some shortness of breath when she takes a deep breath. Remainder of 14- point review of systems is negative other than mentioned in the HPI. PHYSICAL EXAMINATION GENERAL: She is a well-appearing middle-aged woman, in no acute distress. VITAL SIGNS: Temperature is 36.2, pulse 93, respirations are 20, blood pressure is 146/103, O2 sat is 89% to 94%. HEENT: Head is normocephalic, atraumatic. Sclerae are anicteric. Pupils equal , round, and reactive to light and accommodation. Oropharynx is moist, no lesions. NECK: No JVD, no carotid bruits, no thyromegaly. LUNGS: Clear to auscultation and percussion bilaterally. HEART: Regular rate and rhythm without murmurs or gallops. ABDOMEN: Soft, nontender. Positive bowel sounds. No hepatosplenomegaly. EXTREMITIES: No peripheral edema. Dorsalis pedis pulses are 2+ bilaterally. NEUROLOGIC: Cranial nerves II through XII are intact. Motor strength is 5/5 throughout. Deep tendon reflexes are symmetric. DIAGNOSTIC STUDIES/LAB DATA: Sodium 137, potassium 3.9, chloride 104, bicarb 24. BUN 15, creatinine 0.91, glucose 123, calcium 10.0. AST 27, ALT 15, troponins 2.17, CK-MB is 21.8, TSH 2.05. White count is 12.2, hemoglobin 14.1, hematocrit 41%, platelets are 323. EKG shows normal sinus rhythm, normal axis, T-wave flattening in V6. There is no acute ischemia. Chest x-ray is negative for infiltrates, but there is hypoinflation. There is also x-ray of the sternum, which shows no fracture. ASSESSMENT AND PLAN: A 58-year-old woman presenting with chest pain which followed a trauma 1 month ago. Differential would include pulmonary embolism, lung contusion, rib fractures, of course cardiac angina or pericarditis. The patient will have a CT of the chest in the ER to rule out pulmonary embolism and lung contusion. The patient's troponin certainly suggest acute AZ, although this is not visible on the EKG, so it may represent a small vessel event. She may also have takotsubo cardiomyopathy given the recent of her daughter. We will check an echocardiogram today or tomorrow and discuss the case with Cardiology, who will see the patient for consult today. We will follow troponins serially and base decisions upon that. She certainly does not have STEMI, does not need to go to the [employer] Floor [employer] tonight. Code status is full. DVT prophylaxis. Should be on Lovenox 1 mg/kg per discussion with Cardiology, does not need further DVT prophylaxis. [id number]/[facility] #: [id number] KIERSTEN
[2019-02-16] MEDS ORDERED: LORazepam INJ* 2 MG/ML 1 ML VIAL IV PUSH ONE (22:53)
[2019-02-16] MEDS ORDERED: Lorazepam PYXIS KEY PRN (22:53)
[2019-02-16] MEDS ORDERED: Lorazepam PYXIS KEY ONE (22:54)
[2019-02-16] MEDS ORDERED: LORazepam INJ* 2 MG/ML 1 ML VIAL ONE (22:55)
[2019-02-16] MEDS ORDERED: Albuterol 2.5 MG/3 ML NEB.SOL* (0.083%) INH ONE (22:58)
[2019-02-16] MEDS ORDERED: Albuterol/Ipratropium NEB.SOL* Albuterol 2.5 MG/Ipratropium 0.5 MG 3 ML ONE (22:58)
[2019-02-16] MEDS ORDERED: Enoxaparin(*) 80 MG/0.8 ML SYR SUBCUT SCH (23:00)
[2019-02-17] MEDS ORDERED: NS 0.9% 1000 ML** 1,000 ML IV SCH (00:01)
--- NOTE | 2019-02-17 00:45 | PN ---
Hospitalist Progress Note Date of Service: 02/17/19 Code STEMI called last night by Dr. Little. Evaluated patient who stated her chest pain had improved since talking to Dr. Little on phone. Dr. Lehman was also at bedside and took patient to Cardiac cath. Post Cardiac cath discussed with Dr. Lehman no blockage, however had elevated LVEDP suggesting CHF. He didnt observe any valvulur dysfunction. He suspects pericarditis as cause of diffuse ST elevation secondary to recent URI. Patient severely short of breath. On exam seems to have some expiratory ronchi and minimal wheezing. CXR shows severe congestion ?infiltrate on the right side. Will order 40mg IV lasix. Along with Duonebs. Ortegaey for strict Is and Os. Leukocytosis could be from patients recent cath and yoan-carditis will get blood , sputum and urine cultures.
[2019-02-17] MEDS ORDERED: Furosemide IV* 10 MG/ML VIAL (40 MG) IV SLOW PU ONE (00:47)
[2019-02-17] MEDS: traMADol TAB* 50 MG PO PRN ×2 (01:02→11:21)
[2019-02-17 01:18] LABS: Urine Appearance Cloudy; Urine Bilirubin Negative (Negative); Urine Blood Negative (Negative); Urine Color Yellow; Urine Glucose Negative (Negative); Urine Ketones Negative (Negative); Urine Nitrite Negative (Negative); Urine Protein Negative (Negative); Urine Specific Gravity 1.057 (1.010-1.030); Urine Urobilinogen Negative (Negative)
[2019-02-17] MEDS: Albuterol/Ipratropium NEB.SOL* Albuterol 2.5 MG/Ipratropium 0.5 MG 3 ML INH PRN (04:44)
[2019-02-17] MEDS ORDERED: Morphine INJ* 2 MG/ML 1 ML SYRINGE (TWO MG - NEW SYRINGE VERSION) ONE (04:59)
[2019-02-17] MEDS ORDERED: Morphine INJ* 2 MG/ML 1 ML SYRINGE (TWO MG - NEW SYRINGE VERSION) IV ONE (05:01)
[2019-02-17 05:53] LABS: ABS Basophils 0.1 10^3/ul (0-0.2); ABS Lymphocytes 2.3 10^3/ul (1.0-4.8); Eosinophil % 0.1 %; Hematocrit 42 % (35-47); Hemoglobin 14.3 g/dL (12.0-16.0); Lymphocyte % 10.1 %; Mean Corpuscular HGB Conc 34 g/dL (31-36); Mean Corpuscular Hemoglobin 32 pg (27-31); Mean Corpuscular Volume 92 fL (80-97); Mean Platelet Volume 8.5 fL (7.4-10.4); Nucleated Red Blood Cells % 0.1; Platelet Count 322 10^3/uL (150-450); Red Blood Count 4.52 10^6 /uL (3.70-4.87); Red Cell Distribution Width 13 % (10-15); White Blood Count 22.4 10^3/uL (3.5-10.8)
[2019-02-17 06:15] LABS: ALT 19 U/L (7-52); AST 59 U/L (13-39); Albumin 4.2 g/dL (3.2-5.2); Albumin/Globulin Ratio 1.4 (1-3); Alkaline Phosphatase 105 U/L (34-104); Anion Gap 12 mmol/L (2-11); BUN/Creatinine Ratio 20.4 (8-20); Blood Urea Nitrogen 23 mg/dL (6-24); CO2 Carbon Dioxide 22 mmol/L (22-32); Calcium 9.3 mg/dL (8.6-10.3); Chloride 100 mmol/L (101-111); Cholesterol 276 mg/dL; EGFR African American 59.6 (>60); EGFR Non-African American 49.3 (>60); Glucose 132 mg/dL (70-100); HDL Cholesterol 65.9 mg/dL; LDL Cholesterol 178 mg/dL; Potassium 3.5 mmol/L (3.5-5.0); Sodium 134 mmol/L (135-145); Total Protein 7.2 g/dL (6.4-8.9); Triglycerides 161 mg/dL
[2019-02-17] MEDS ORDERED: KCL 20 MEQ/100 ML IVPREMIX* 20 MEQ/100 ML BAG IV ONE (06:30)
[2019-02-17] MEDS: Metoprolol Tartrate TAB* 25 MG PO SCH ×4 (06:32→20:48)
[2019-02-17] MEDS ORDERED: Ticagrelor* 90 MG TAB PO SCH (08:00)
[2019-02-17] MEDS ORDERED: Enoxaparin(*) 60 MG/0.6 ML SYR SUBCUT SCH (08:00)
[2019-02-17] MEDS: buPROPion TAB* 100 MG PO SCH (08:19)
[2019-02-17] MEDS: OLANzapine TAB* 10 MG PO SCH (08:19)
[2019-02-17] MEDS: Pregabalin CAP(*) 50 MG PO SCH ×4 (08:19→21:01)
[2019-02-17] MEDS: Sertraline* 100 MG TAB PO SCH (08:19)
[2019-02-17] MEDS: Pregabalin CAP(*) 25 MG PO SCH ×5 (08:20→21:01)
[2019-02-17] MEDS: Lisinopril TAB* 10 MG PO SCH (08:20)
[2019-02-17] MEDS: Hyoscyamine ER (NF) 0.375 MG TAB PO SCH ×2 (08:21)
[2019-02-17] MEDS ORDERED: Morphine INJ* 4 MG/ML 1 ML SYRINGE (NEW SYRINGE VERSION) IV PRN (08:56)
[2019-02-17] MEDS ORDERED: Aspirin 81 mg CHEW TAB* 81 MG TAB.CHEW PO SCH (09:00)
[2019-02-17] MEDS ORDERED: Enoxaparin(*) 80 MG/0.8 ML SYR SUBCUT SCH ×2 (09:00)
[2019-02-17] MEDS ORDERED: Colchicine* 0.6 MG TAB PO ONE (09:00)
--- NOTE | 2019-02-17 09:00 | PN ---
Subjective Date of Service: 02/17/19 Interval History: Events of night reviewed. ST elevations progressed, went to [employer] lab[employer]. Had clean coronaries. Thought to have CHF and pericarditis. Today patient has pain in LT scapula. Breathing is OK. Did not tolerate IV potassium. Family History: Unchanged from Admission Social History: Unchanged from Admission Past Medical History: Unchanged from Admission Objective Active Medications: Acetaminophen (Tylenol Tab*) 650 mg PO Q4H PRN PRN Reason: MILD PAIN or TEMP > 100.4 Last Admin: 02/16/19 15:30 Dose: 650 mg Albuterol/Ipratropium (Duoneb (Albuterol 2.5 Mg/Ipratropium 0.5 Mg)) 1 neb INH Q4H PRN PRN Reason: SOB/WHEEZING Last Admin: 02/17/19 04:44 Dose: 1 neb Atorvastatin Calcium (Lipitor*) 80 mg PO 2100 [facility] Last Admin: 02/17/19 00:00 Dose: 80 mg Baclofen (Lioresal Tab*) 10 mg PO TID PRN PRN Reason: SPASMS Bupropion HCl (Wellbutrin Tab*) 100 mg PO DAILY [facility] Last Admin: 02/17/19 08:19 Dose: 100 mg Colchicine (Colcrys*) 0.6 mg PO DAILY [facility] Colchicine (Colcrys*) 0.6 mg PO ONCE ONE Stop: 02/17/19 09:01 Enoxaparin Sodium (Lovenox(*)) 40 mg SUBCUT Q24H [facility] Lisinopril (Prinivil Tab*) 10 mg PO DAILY [facility] Last Admin: 02/17/19 08:20 Dose: 10 mg Metoprolol Tartrate (Lopressor Tab*) 12.5 mg PO Q12HR [facility] Miscellaneous (Ativan Pyxis Russell) 1 ea N/A .ATIVAN IV RUSSELL PRN PRN Reason: PYXIS RUSSELL Olanzapine (Zyprexa Tab*) 10 mg PO DAILY [facility] Last Admin: 02/17/19 08:19 Dose: 10 mg Ondansetron HCl (Zofran Inj*) 4 mg IV Q4H PRN PRN Reason: NAUSEA Potassium Chloride (Klor Con Er Tab*) 10 meq PO BID [facility] Pregabalin (Lyrica Cap(*)) 25 mg PO QID [facility] Last Admin: 02/17/19 08:20 Dose: 25 mg Pregabalin (Lyrica Cap(*)) 50 mg PO QID [facility] Last Admin: 02/17/19 08:19 Dose: 50 mg Sertraline HCl (Zoloft*) 200 mg PO DAILY [facility] Last Admin: 02/17/19 08:19 Dose: 200 mg Tramadol HCl (Ultram*) 50 mg PO QID PRN PRN Reason: PAIN Last Admin: 02/17/19 01:02 Dose: 50 mg Vital Signs - 8 hr 02/17/19 02/17/19 02/17/19 01:00 01:30 02:00 Temperature 37.0 C 37.3 C 37.4 C Pulse Rate 98 103 92 Respiratory 35 29 23 Rate Blood Pressure 121/89 132/112 119/88 (mmHg) O2 Sat by Pulse 92 91 93 Oximetry 02/17/19 02/17/19 02/17/19 02:30 03:00 04:00 Temperature 37.4 C 37.4 C 37.5 C Pulse Rate 97 92 98 Respiratory 21 32 23 Rate Blood Pressure 133/102 120/90 119/96 (mmHg) O2 Sat by Pulse 92 92 90 Oximetry 02/17/19 02/17/19 02/17/19 06:22 07:00 08:00 Temperature 37.5 C 37.6 C Pulse Rate 91 89 Respiratory 20 15 17 Rate Blood Pressure 94/80 105/82 (mmHg) O2 Sat by Pulse 94 95 Oximetry Oxygen Devices in Use Now: Nasal Cannula Appearance: alert, sitting up Eyes: No Scleral Icterus Ears/Nose/Mouth/Throat: NL Teeth, Lips, Gums Neck: No Thyroid Enlargement, Masses Respiratory: Symmetrical Chest Expansion and Respiratory Effort, Clear to Auscultation Cardiovascular: NL Sounds; No Murmurs; No JVD, RRR, No Edema Abdominal: NL Sounds; No Tenderness; No Distention Lymphatic: No Cervical Adenopathy Neurological: Alert and Oriented x 3 Lines/Tubes/Other Access: Clean, Dry and Intact Peripheral IV Result Diagrams: 02/17/19 05:28 02/17/19 05:28 Additional Lab and Data: Laboratory Tests 02/16/19 02/16/19 02/16/19 16:21 20:00 21:44 AST CK-MB (CK-2) 49.4 H Troponin I 4.44 H* 5.81 H* 5.47 H* C-Reactive Protein 12.49 H Cholesterol LDL Cholesterol LDL Cholesterol Direct 206 HDL Cholesterol 02/17/19 05:28 AST 59 H CK-MB (CK-2) Troponin I 5.10 H* C-Reactive Protein Cholesterol 276 LDL Cholesterol 178 LDL Cholesterol Direct HDL Cholesterol 65.9 Microbiology and Other Data: Microbiology 02/17/19 01:08 Legionella Urinary Antigen - Final Urine Negative Legionella Antigen Streptococcus pneumoniae Ag Screen - Final Negative S. pneumo Antigen 02/16/19 23:30 Nasal Screen MRSA (PCR) - Final Nasal Mrsa Not Detected EKG Data: Reviewed EKG, there are subtle ST elevations in I, aVL Assess/Plan/Problems-Billing Assessment: 58 year old woman with chest pain, elevated troponin, possible pericarditis, negative cath - Patient Problems (1) Pericarditis Current Visit: Yes Status: Acute Priority: High Code(s): I31.9 - DISEASE OF PERICARDIUM, UNSPECIFIED SNOMED Code(s): 0827863 Comment: -Will have echo today -Starting on colchicine and meloxicam (2) Acute diastolic (congestive) heart failure Current Visit: Yes Status: Acute Priority: Medium Code(s): I50.31 - ACUTE DIASTOLIC (CONGESTIVE) HEART FAILURE SNOMED Code(s): 003479691 Comment: -Treated for CHF overnight -Appears euvolemic today (3) Elevated troponin level Current Visit: Yes Status: Acute Priority: Medium Code(s): R74.8 - ABNORMAL LEVELS OF OTHER SERUM ENZYMES SNOMED Code(s): 275577165 Comment: -No type 1 NH seen, cardiac cath normal -Suspect yoan-myocarditis due to virus vs Takatsubo cardiomyopathy -Echo pending Status and Disposition: inpatient, can go to telemetry
[2019-02-17] MEDS: Enoxaparin(*) 40 MG/0.4 ML SYR SUBCUT SCH (09:29)
[2019-02-17] MEDS ORDERED: Morphine INJ* 2 MG/ML 1 ML SYRINGE (TWO MG - NEW SYRINGE VERSION) IV PRN (09:30)
[2019-02-17] MEDS: CMCS: Meloxicam(NF) 7.5 MG TAB PO SCH ×2 (09:39→21:38)
[2019-02-17] MEDS: Potassium Chlor TAB* 10 MEQ TAB.ER PO SCH ×2 (09:39→21:01)
--- NOTE | 2019-02-17 10:29 | CATH ---
CC: Dr. Cassandra Guzman; Dr. Yasmany Little * CARDIAC CATHETERIZATION REPORT: DATE OF PROCEDURE: 02/16/19 - ROOM #447 INDICATIONS FOR PROCEDURE: Asked by Dr. Yasmany Little (primary filling mixer involved with the case) to perform diagnostic cardiac catheterization and possible intervention because of rising troponins, episodes of recurrent chest discomfort and shortness of breath. PROCEDURE: Left heart catheterization, coronary arteriography, left ventriculography. CONSENT: The patient was interviewed and examined in the holding area and on the floor of the hospital where the risks and benefits were explained. She understood them and wished to proceed. APPROACH: The right radial artery was assessed in the Speech Pathology Supervisor under ultrasound and found to be acceptable and as such this was the approach utilized. PRECARDIAC CATHETERIZATION LABORATORY RESULTS: Hemoglobin and hematocrit of 14.1 and 41 with platelet count of 323,000. Sodium 137, potassium 3.9, chloride 104, bicarb 24, BUN and creatinine 19 and 0.9, and troponin was 5.81, the most recent one. EQUIPMENT UTILIZED: 1. Right radial artery sheath, a 6-Lao Ellis slender sheath. 2. Diagnostic coronary catheter - a 5-Lao TIG4 curved diagnostic catheter. 3. Diagnostic guidewire - a 260 length Reina curved guidewire. 4. Left heart catheterization catheter - a 5-Lao PIG short radial catheter. 5. Closure device utilized was a regular length Vasc Band by [employer]. MEDICATIONS GIVEN DURING THE PROCEDURE: The patient received the radial artery cocktail of 300 mcg of nitroglycerin and 3 mg of verapamil. Of note, the patient had already received 4000 units of heparin within the past hour on the floor of the hospital. The patient received 1% lidocaine locally and 0.5 mg of Versed IV. DESCRIPTION OF PROCEDURE: The patient was brought to the cardiovascular laboratory where a formal time-out was performed. Under ultrasound guidance, the right radial artery was entered and the sheath was placed. Diagnostic coronary arteriography was performed. Following this, central aortic pressure was recorded using the pigtail catheter advanced to ascending aorta. Catheter was passed across the aortic valve and the left ventricle. The left ventricular pressure was recorded. Left ventriculography was performed using a total of 24cc of Omnipaque dye at the rate of 12cc per second. The catheter was pulled back across the aortic valve to recheck the gradient. At the end of the case, the catheter and sheath were removed and a Vasc Band was placed with good hemostasis. The reverse Barbeau was a B. The total contrast used was 55 cc of Omnipaque dye, 15 cc extra were wasted from the amount recorded of 70. The radiation exposure included 3.8 minutes of fluoro time. The air kerma radiation was 480 mGy. The DAP radiation was 2941 microgray/m2. RESULTS: HEMODYNAMIC DATA: Left heart catheterization revealed central aortic pressure of 113/81 with a mean of 97, left ventricular pressure of 112 over left ventricular end- diastolic pressure of 28 to 32 mmHg. CORONARY ARTERIOGRAPHY: A. Right coronary artery - a dominant vessel supplying the PDA and posterior left ventricular branch. There was no significant narrowing seen throughout the course of this vessel or its branches. B. Left coronary artery: 1. Left main - widely patent. 2. Left anterior descending artery. There was mild luminal irregularity seen in the most proximal portion of left anterior descending artery with calcium noted. The degree of narrowing noted to be 20% to 25%. The LAD supplied a high posteriorly directing bifurcating diagonal branch that then extended to the apical region. There was mild mid narrowing of 25% to 30% noted. Of note, a very distal muscle bridge was noted with systolic milking. There was no significant diastolic narrowing seen. The bifurcating first diagonal branch did not appear to have any significant narrowing with mild 25% ostial narrowing. 3. Circumflex artery - a nondominant vessel supplying a very short, thin trifurcation marginal branch, the caliber of which was well under 1 mm. The ostium of it had a 60% narrowing. There was several small thin first and second obtuse marginal branches with the moderate sized third obtuse marginal branch and a smaller size fourth low-lying posterior left ventricular branch. There was no significant lesion seen throughout the body of the circumflex or the mid and distal vessels. In general, the distal portions of the arteries had somewhat cork-screw appearance raising the question of possible left ventricular hypertrophy. LEFT VENTRICULOGRAPHY: Performed in the EARL projection revealed severe left ventricular systolic dysfunction with overall ejection fraction at 15% to 20%. Only the base areas of the heart appeared to move. OVERALL ASSESSMENT: Severe left ventricular systolic dysfunction in the absence of significant coronary artery disease raising the question of possible Takotsubo syndrome. Dr. Little had obtained a sed rate which was not elevated making myocarditis less likely. Aggressive management of severe left ventricular dysfunction will be pursued. In light of her shortness of breath and desaturation, we will give her IV Lasix now. I have discussed the case at length with the hospitalist and notified Dr. Yasmany Little, the primary filling mixer, of these results. Dr. Little will work with the hospitalist with overnight management. Consideration for starting HILARY inhibitors and eventually beta-blockers once congestive heart failure has cleared would be recommended. The patient will need followup of left ventricular systolic function in order to decide about the LifeVest placement per the primary filling mixer involvement. [id number]/[facility] #: [id number] MTDD
[2019-02-17] MEDS ORDERED: NS 0.9% 500 ML* 500 ML IV ONE ×2 (15:20→22:24)
[2019-02-17] MEDS: Colchicine* 0.6 MG TAB PO SCH (17:16)
[2019-02-17] MEDS: Atorvastatin* 80 MG TAB PO SCH ×2 (21:01)
[2019-02-17] MEDS: Acetaminophen TAB* 325 MG PO PRN (23:53)
[2019-02-18] MEDS: Albuterol/Ipratropium NEB.SOL* Albuterol 2.5 MG/Ipratropium 0.5 MG 3 ML INH PRN (00:41)
[2019-02-18 07:55] LABS: ABS Eosinophils 0.2 10^3/ul (0-0.6); ABS Lymphocytes 2.7 10^3/ul (1.0-4.8); ABS Neutrophils 7.3 10^3/ul (1.5-7.7); Eosinophil % 1.3 %; Hematocrit 31 % (35-47); Hemoglobin 10.7 g/dL (12.0-16.0); Mean Corpuscular HGB Conc 35 g/dL (31-36); Mean Corpuscular Hemoglobin 33 pg (27-31); Mean Corpuscular Volume 93 fL (80-97); Mean Platelet Volume 8.8 fL (7.4-10.4); Nucleated Red Blood Cells % 0.1; Platelet Count 183 10^3/uL (150-450); Red Cell Distribution Width 13 % (10-15); White Blood Count 11.2 10^3/uL (3.5-10.8)
--- NOTE | 2019-02-18 08:16 | PN ---
Subjective Date of Service: 02/18/19 Interval History: HOSPITALIST PROGRESS NOTE Patient seen and examined at bedside. Care reviewed and d/w Sergio Rascon RN. She feels a little better today. Still has some chest pain and dyspnea with exertion, but feels better than yesterday. Family History: Unchanged from Admission Social History: Unchanged from Admission Past Medical History: Unchanged from Admission Objective Active Medications: Acetaminophen (Tylenol Tab*) 650 mg PO Q4H PRN PRN Reason: MILD PAIN or TEMP > 100.4 Last Admin: 02/17/19 23:53 Dose: 650 mg Albuterol/Ipratropium (Duoneb (Albuterol 2.5 Mg/Ipratropium 0.5 Mg)) 1 neb INH Q4H PRN PRN Reason: SOB/WHEEZING Last Admin: 02/18/19 00:41 Dose: 1 neb Atorvastatin Calcium (Lipitor*) 80 mg PO 2100 [facility] Last Admin: 02/17/19 21:01 Dose: 80 mg Baclofen (Lioresal Tab*) 10 mg PO TID PRN PRN Reason: SPASMS Bupropion HCl (Wellbutrin Tab*) 100 mg PO DAILY [facility] Last Admin: 02/17/19 08:19 Dose: 100 mg Colchicine (Colcrys*) 0.6 mg PO DAILY [facility] Last Admin: 02/17/19 17:16 Dose: 0.6 mg Enoxaparin Sodium (Lovenox(*)) 40 mg SUBCUT Q24H [facility] Last Admin: 02/17/19 09:29 Dose: Not Given Lisinopril (Prinivil Tab*) 10 mg PO DAILY [facility] Last Admin: 02/17/19 08:20 Dose: 10 mg Meloxicam (Mobic(Nf)) 7.5 mg PO BID [facility] Last Admin: 02/17/19 21:38 Dose: 7.5 mg Metoprolol Tartrate (Lopressor Tab*) 12.5 mg PO Q12HR [facility] Last Admin: 02/17/19 20:48 Dose: Not Given Miscellaneous (Ativan Pyxis Russell) 1 ea N/A .ATIVAN IV RUSSELL PRN PRN Reason: PYXIS RUSSELL Morphine Sulfate (Morphine Inj (Syringe))*) 2 mg IV Q3H PRN PRN Reason: PAIN - MODERATE Olanzapine (Zyprexa Tab*) 10 mg PO DAILY [facility] Last Admin: 02/17/19 08:19 Dose: 10 mg Ondansetron HCl (Zofran Inj*) 4 mg IV Q4H PRN PRN Reason: NAUSEA Potassium Chloride (Klor Con Er Tab*) 10 meq PO BID [facility] Last Admin: 02/17/19 21:01 Dose: 10 meq Pregabalin (Lyrica Cap(*)) 25 mg PO QID [facility] Last Admin: 02/17/19 21:01 Dose: 25 mg Pregabalin (Lyrica Cap(*)) 50 mg PO QID [facility] Last Admin: 02/17/19 21:01 Dose: 50 mg Sertraline HCl (Zoloft*) 200 mg PO DAILY [facility] Last Admin: 02/17/19 08:19 Dose: 200 mg Tramadol HCl (Ultram*) 50 mg PO QID PRN PRN Reason: PAIN Last Admin: 02/17/19 11:21 Dose: 50 mg Vital Signs - 8 hr 02/18/19 02/18/19 00:46 03:00 Temperature 97.3 F Pulse Rate 101 91 Respiratory 18 17 Rate Blood Pressure 107/58 (mmHg) O2 Sat by Pulse 99 95 Oximetry Oxygen Devices in Use Now: Nasal Cannula Appearance: Pleasant lady lying in bed in [facility]. Eyes: No Scleral Icterus Ears/Nose/Mouth/Throat: Mucous Membranes Moist Neck: Trachea Midline Respiratory: Symmetrical Chest Expansion and Respiratory Effort, - - BS+ bilaterally with no added sounds Cardiovascular: RRR - Normal S1 and S2 Abdominal: NL Sounds; No Tenderness; No Distention Extremities: No Edema Neurological: Alert and Oriented x 3, NL Muscle Strength and Tone Result Diagrams: 02/18/19 06:45 02/18/19 06:45 Microbiology and Other Data: Microbiology 02/17/19 01:08 Legionella Urinary Antigen - Final Urine Negative Legionella Antigen Streptococcus pneumoniae Ag Screen - Final Negative S. pneumo Antigen 02/16/19 23:30 Nasal Screen MRSA (PCR) - Final Nasal Mrsa Not Detected Assess/Plan/Problems-Billing Assessment: Mrs Beach is a 58 yo F with PMH of IBS, fibromyalgia, depression, HLD; who presented to ED with chest pain, elevated troponin, possible pericarditis, had negative cath. - Patient Problems (1) Takotsubo cardiomyopathy Comment: - Presented with pleuritic chest pain with EKG changes. - Cardiac cath showed EF 15-20%, with no significant CAD. - CTA chest was negative for PE. - Impression is she probably has Takotsubo. Pericarditis on the differential, but her presenting ESR was only 3 - will continue colchicine and d/c meloxican in the setting of CHF. - Repeat echo tomorrow to assess EF recovery. - Cardiology input appreciated - will continue therapeutic Lovenox to prevent apical thrombus - depending on EF recovery, may go home on Aspirin only. (2) Pneumonia Comment: - Patient was hypotensive yesterday, but in the setting of receiving diuretics. Receive a total of 1000ml NS (500ml during the day and 500ml overnight). She had fever, tachycardia, but the clinical picture gets a little muddled with her cardiomyopathy. - She appears to be euvolemic now, so will not give further IVF. BP is on the lower side, but asymptomatic, with good perfusion and normal LA. - CxR shows bilateral infiltrates compatible with pneumonia. - LA 0.6, blood cultures show no growth so far, Legionella and Pneumococcal Ag are negative. - Start Ceftriaxone and Doxycycline. (3) Acute diastolic (congestive) heart failure Comment: - She appears euvolemic at this time. - Her dyspnea is likely secondary to pneumonia. - Will d/c diuretics and monitor. (4) Fibromyalgia syndrome Comment: - Continue Lyrica. (5) Depression Comment: - Continue Sertraline. (6) DVT prophylaxis Comment: - Lovenox. (7) Full code status Status and Disposition: Inpatient.
[2019-02-18 08:17] LABS: Albumin 3.5 g/dL (3.2-5.2); Albumin/Globulin Ratio 1.6 (1-3); BUN/Creatinine Ratio 24.5 (8-20); Calcium 8.3 mg/dL (8.6-10.3); EGFR African American 73.7 (>60); Globulin 2.2 g/dL (2-4); Potassium 3.8 mmol/L (3.5-5.0); Total Bilirubin 0.8 mg/dL (0.2-1.0); Total Protein 5.7 g/dL (6.4-8.9)
[2019-02-18] MEDS ORDERED: Azithromycin 500 mg/250 ml NS 500 MG/250 ML BAG IVPB SCH (09:00)
[2019-02-18] MEDS: cefTRIAXone(*) 1 GM in NS 0.9% 50 ML* 50 ML IVPB SCH (10:12)
[2019-02-18] MEDS: CMCS: Meloxicam(NF) 7.5 MG TAB PO SCH (10:17)
[2019-02-18] MEDS: Pregabalin CAP(*) 50 MG PO SCH ×4 (10:17→21:24)
[2019-02-18] MEDS: Pregabalin CAP(*) 25 MG PO SCH ×4 (10:17→21:25)
[2019-02-18] MEDS: buPROPion TAB* 100 MG PO SCH (10:17)
[2019-02-18] MEDS: OLANzapine TAB* 10 MG PO SCH (10:17)
[2019-02-18] MEDS: Potassium Chlor TAB* 10 MEQ TAB.ER PO SCH ×2 (10:18→21:24)
[2019-02-18] MEDS: Metoprolol Tartrate TAB* 25 MG PO SCH ×2 (10:18→21:11)
[2019-02-18] MEDS: Sertraline* 100 MG TAB PO SCH (10:18)
[2019-02-18] MEDS: Enoxaparin(*) 40 MG/0.4 ML SYR SUBCUT SCH (10:20)
[2019-02-18] MEDS: Lisinopril TAB* 10 MG PO SCH (11:30)
[2019-02-18] MEDS: Colchicine* 0.6 MG TAB PO SCH (12:07)
[2019-02-18] MEDS: DOXYcycline IV* 100 MG in NS 0.9% 250 ML* 250 ML IVPB SCH ×2 (12:07→22:04)
[2019-02-18] MEDS ORDERED: traMADol TAB* 50 MG PO PRN (17:01)
[2019-02-18] MEDS ORDERED: Morphine INJ* 2 MG/ML 1 ML SYRINGE (TWO MG - NEW SYRINGE VERSION) IV PRN (17:02)
[2019-02-18] MEDS: LORazepam TAB(*) 0.5 MG PO PRN (18:01)
[2019-02-18] MEDS: Atorvastatin* 80 MG TAB PO SCH (21:24)
[2019-02-18] MEDS: Enoxaparin(*) 80 MG/0.8 ML SYR SUBCUT SCH (21:25)
[2019-02-19 06:20] LABS: ABS Basophils 0.1 10^3/ul (0-0.2); ABS Eosinophils 0.2 10^3/ul (0-0.6); ABS Lymphocytes 2.2 10^3/ul (1.0-4.8); ABS Monocytes 1.1 10^3/ul (0-0.8); ABS Neutrophils 6.2 10^3/ul (1.5-7.7); Eosinophil % 2.2 %; Hematocrit 30 % (35-47); Hemoglobin 10.4 g/dL (12.0-16.0); Lymphocyte % 22.2 %; Mean Corpuscular HGB Conc 35 g/dL (31-36); Mean Corpuscular Hemoglobin 32 pg (27-31); Mean Corpuscular Volume 93 fL (80-97); Mean Platelet Volume 8.2 fL (7.4-10.4); Nucleated Red Blood Cells % 0.1; Platelet Count 188 10^3/uL (150-450); Red Blood Count 3.22 10^6 /uL (3.70-4.87); Red Cell Distribution Width 13 % (10-15); White Blood Count 9.8 10^3/uL (3.5-10.8)
[2019-02-19 06:36] LABS: BUN/Creatinine Ratio 21.9 (8-20); C Reactive Protein 100.97 mg/L (<8.01); Calcium 8.8 mg/dL (8.6-10.3); EGFR African American 98.7 (>60); EGFR Non-African American 81.6 (>60); Potassium 4.2 mmol/L (3.5-5.0)
[2019-02-19] MEDS: cefTRIAXone(*) 1 GM in NS 0.9% 50 ML* 50 ML IVPB SCH (08:03)
[2019-02-19] MEDS ORDERED: Perflutren Lipid Microsphere* 3 ML VIAL ONE (08:09)
--- NOTE | 2019-02-19 08:13 | PN ---
Subjective Date of Service: 02/19/19 Interval History: HOSPITALIST PROGRESS NOTE Patient seen and examined at bedside. Care reviewed and d/w Massiel Newman RN. She feels a little better today. Still has pleuritic CP, but down to 4/10; breathing is easier and she was able to rest more last night. Family History: Unchanged from Admission Social History: Unchanged from Admission Past Medical History: Unchanged from Admission Objective Active Medications: Acetaminophen (Tylenol Tab*) 650 mg PO Q4H PRN PRN Reason: MILD PAIN or TEMP > 100.4 Last Admin: 02/17/19 23:53 Dose: 650 mg Albuterol/Ipratropium (Duoneb (Albuterol 2.5 Mg/Ipratropium 0.5 Mg)) 1 neb INH Q4H PRN PRN Reason: SOB/WHEEZING Last Admin: 02/18/19 00:41 Dose: 1 neb Atorvastatin Calcium (Lipitor*) 80 mg PO 2100 [facility] Last Admin: 02/18/19 21:24 Dose: 80 mg Baclofen (Lioresal Tab*) 10 mg PO TID PRN PRN Reason: SPASMS Bupropion HCl (Wellbutrin Tab*) 100 mg PO DAILY [facility] Last Admin: 02/18/19 10:17 Dose: 100 mg Colchicine (Colcrys*) 0.6 mg PO DAILY [facility] Last Admin: 02/18/19 12:07 Dose: 0.6 mg Enoxaparin Sodium (Lovenox(*)) 70 mg SUBCUT Q12H [facility] Last Admin: 02/18/19 21:25 Dose: 70 mg Ceftriaxone Sodium 1 gm/ (Sodium Chloride) 50 mls @ 100 mls/hr IVPB Q24H [facility] Last Admin: 02/19/19 08:03 Dose: 100 mls/hr Doxycycline Hyclate 100 mg/ (Sodium Chloride) 250 mls @ 250 mls/hr IVPB Q12H [facility] Last Admin: 02/18/19 22:04 Dose: 250 mls/hr Lisinopril (Prinivil Tab*) 10 mg PO DAILY [facility] Lorazepam (Ativan Tab(*)) 0.5 mg PO Q6H PRN PRN Reason: ANXIETY Last Admin: 02/18/19 18:01 Dose: 0.5 mg Metoprolol Tartrate (Lopressor Tab*) 12.5 mg PO Q12HR [facility] Last Admin: 02/18/19 21:11 Dose: Not Given Miscellaneous (Ativan Pyxis Russell) 1 ea N/A .ATIVAN IV RUSSELL PRN PRN Reason: PYXIS RUSSELL Morphine Sulfate (Morphine Inj (Syringe))*) 2 mg IV Q3H PRN PRN Reason: PAIN - SEVERE Olanzapine (Zyprexa Tab*) 10 mg PO DAILY [facility] Last Admin: 02/18/19 10:17 Dose: 10 mg Potassium Chloride (Klor Con Er Tab*) 10 meq PO BID [facility] Last Admin: 02/18/19 21:24 Dose: 10 meq Pregabalin (Lyrica Cap(*)) 25 mg PO QID [facility] Last Admin: 02/18/19 21:25 Dose: 25 mg Pregabalin (Lyrica Cap(*)) 50 mg PO QID [facility] Last Admin: 02/18/19 21:24 Dose: 50 mg Sertraline HCl (Zoloft*) 200 mg PO DAILY [facility] Last Admin: 02/18/19 10:18 Dose: 200 mg Tramadol HCl (Ultram*) 50 mg PO QID PRN PRN Reason: PAIN - MODERATE Vital Signs - 8 hr 02/19/19 02/19/19 02/19/19 01:35 01:36 04:00 Temperature 97.8 F Pulse Rate 89 Respiratory 18 18 18 Rate Blood Pressure 97/58 (mmHg) O2 Sat by Pulse 98 Oximetry Oxygen Devices in Use Now: Nasal Cannula - 2 liters Appearance: Pleasant lady sitting up in bed in NAD Eyes: No Scleral Icterus Ears/Nose/Mouth/Throat: Mucous Membranes Moist Neck: Trachea Midline Respiratory: Symmetrical Chest Expansion and Respiratory Effort, Clear to Auscultation Cardiovascular: RRR - Normal S1 and S2 Abdominal: NL Sounds; No Tenderness; No Distention Extremities: No Edema Neurological: Alert and Oriented x 3, NL Muscle Strength and Tone Result Diagrams: 02/19/19 05:59 02/19/19 05:59 Microbiology and Other Data: Microbiology 02/17/19 01:08 Legionella Urinary Antigen - Final Urine Negative Legionella Antigen Streptococcus pneumoniae Ag Screen - Final Negative S. pneumo Antigen 02/16/19 23:30 Nasal Screen MRSA (PCR) - Final Nasal Mrsa Not Detected Assess/Plan/Problems-Billing Assessment: Mrs Beach is a 58 yo F with PMH of IBS, fibromyalgia, depression, HLD; who presented to ED with chest pain, elevated troponin, possible pericarditis, had negative cath. - Patient Problems (1) Takotsubo cardiomyopathy Comment: - Presented with pleuritic chest pain with EKG changes. - Cardiac cath showed EF 15-20%, with no significant CAD. - CTA chest was negative for PE. - Impression is she probably has Takotsubo. Pericarditis on the differential, but ESR presentation was only 3 - continue colchicine and meloxican was discontinue in the setting of CHF. - Repeat echo today to assess EF recovery. - Cardiology f/u requested. - Will continue therapeutic Lovenox to prevent apical thrombus - depending on EF recovery, may go home on Aspirin only. (2) Pneumonia Comment: - Patient was hypotensive a couple days ago, but in the setting of receiving diuretics. Receive a total of 1000ml NS (500ml during the day and 500ml overnight). She had fever, tachycardia, but the clinical picture gets a little muddled with her cardiomyopathy. - She appears to be euvolemic now, so will not give further IVF. BP is improving today. - CxR shows bilateral infiltrates compatible with pneumonia. - LA 0.6, blood cultures show no growth so far, Legionella and Pneumococcal Ag are negative. - Continue Ceftriaxone and Doxycycline. (3) Acute diastolic (congestive) heart failure Comment: - She appears euvolemic at this time. - Her dyspnea is likely secondary to pneumonia. - Diuretics were discontinue and will continue to monitor. (4) Fibromyalgia syndrome Comment: - Continue Lyrica. (5) Depression Comment: - Continue Sertraline. (6) DVT prophylaxis Comment: - Lovenox. (7) Full code status Status and Disposition: Inpatient. Further management pending repeat echo and Cardiology f/u.
[2019-02-19] MEDS: OLANzapine TAB* 10 MG PO SCH (09:13)
[2019-02-19] MEDS: buPROPion TAB* 100 MG PO SCH (09:14)
[2019-02-19] MEDS: Pregabalin CAP(*) 25 MG PO SCH ×4 (09:14→22:02)
[2019-02-19] MEDS: Lisinopril TAB* 10 MG PO SCH (09:14)
[2019-02-19] MEDS: Potassium Chlor TAB* 10 MEQ TAB.ER PO SCH ×2 (09:15→22:03)
[2019-02-19] MEDS: Pregabalin CAP(*) 50 MG PO SCH ×4 (09:15→22:04)
[2019-02-19] MEDS: Sertraline* 100 MG TAB PO SCH (09:15)
[2019-02-19] MEDS: Colchicine* 0.6 MG TAB PO SCH (09:16)
[2019-02-19] MEDS: Enoxaparin(*) 80 MG/0.8 ML SYR SUBCUT SCH ×2 (09:21→22:00)
[2019-02-19] MEDS: Metoprolol Tartrate TAB* 25 MG PO SCH ×2 (09:22→22:06)
--- NOTE | 2019-02-19 09:48 | PN ---
Subjective Date of Service: 02/19/19 - CC: pleuritic CP, SOB, depressed EF Interval History: I reviewed Dr Little's consult. Pt reports severe coughing in October, saw primary, took abx ,but coughed for a month. Progressive weakness, ignored as son getting . December 19 pt found out her daughter had . More progressive weakness. Fall in December, per patient sneaker caught in side walk, pitched forward, started to get up and arms apparently gave way, fell to ground again. Presented this admission with sweats, chills, profound SOB with pleuritic CP, small bump in trops. Normal C's, severe CM EF 25% on V gram at cath. Now persistent pleuritic CP. Breathing better, but still so bad she can't walk to the bathroom, using commode. She tells me O2 strength increased for SOB/hypoxemia transferring to commode. PAST MEDICAL HISTORY: IBS fibromyalgia depression. hyperlipidemia PAST SURGICAL HISTORY: Cervical fusion in 2001 She had x2 and D and C. ALLERGIES: CODEINE, OXYCODONE, HYDROCODONE and WOOL. Medications Active Medications: Acetaminophen (Tylenol Tab*) 650 mg PO Q4H PRN PRN Reason: MILD PAIN or TEMP > 100.4 Last Admin: 02/17/19 23:53 Dose: 650 mg Albuterol/Ipratropium (Duoneb (Albuterol 2.5 Mg/Ipratropium 0.5 Mg)) 1 neb INH Q4H PRN PRN Reason: SOB/WHEEZING Last Admin: 02/18/19 00:41 Dose: 1 neb Atorvastatin Calcium (Lipitor*) 80 mg PO 2100 [facility] Last Admin: 02/18/19 21:24 Dose: 80 mg Baclofen (Lioresal Tab*) 10 mg PO TID PRN PRN Reason: SPASMS Bupropion HCl (Wellbutrin Tab*) 100 mg PO DAILY [facility] Last Admin: 02/19/19 09:14 Dose: 100 mg Colchicine (Colcrys*) 0.6 mg PO DAILY [facility] Last Admin: 02/19/19 09:16 Dose: 0.6 mg Enoxaparin Sodium (Lovenox(*)) 70 mg SUBCUT Q12H [facility] Last Admin: 02/19/19 09:21 Dose: 70 mg Ceftriaxone Sodium 1 gm/ (Sodium Chloride) 50 mls @ 100 mls/hr IVPB Q24H [facility] Last Admin: 02/19/19 08:03 Dose: 100 mls/hr Doxycycline Hyclate 100 mg/ (Sodium Chloride) 250 mls @ 250 mls/hr IVPB Q12H [facility] Last Admin: 02/18/19 22:04 Dose: 250 mls/hr Lisinopril (Prinivil Tab*) 10 mg PO DAILY [facility] Last Admin: 02/19/19 09:14 Dose: 10 mg Lorazepam (Ativan Tab(*)) 0.5 mg PO Q6H PRN PRN Reason: ANXIETY Last Admin: 02/18/19 18:01 Dose: 0.5 mg Metoprolol Tartrate (Lopressor Tab*) 12.5 mg PO Q12HR [facility] Last Admin: 02/19/19 09:22 Dose: Not Given Miscellaneous (Ativan Pyxis Russell) 1 ea N/A .ATIVAN IV RUSSELL PRN PRN Reason: PYXIS RUSSELL Morphine Sulfate (Morphine Inj (Syringe))*) 2 mg IV Q3H PRN PRN Reason: PAIN - SEVERE Olanzapine (Zyprexa Tab*) 10 mg PO DAILY [facility] Last Admin: 02/19/19 09:13 Dose: 10 mg Potassium Chloride (Klor Con Er Tab*) 10 meq PO BID [facility] Last Admin: 02/19/19 09:15 Dose: 10 meq Pregabalin (Lyrica Cap(*)) 25 mg PO QID [facility] Last Admin: 02/19/19 09:14 Dose: 25 mg Pregabalin (Lyrica Cap(*)) 50 mg PO QID [facility] Last Admin: 02/19/19 09:15 Dose: 50 mg Sertraline HCl (Zoloft*) 200 mg PO DAILY [facility] Last Admin: 02/19/19 09:15 Dose: 200 mg Tramadol HCl (Ultram*) 50 mg PO QID PRN PRN Reason: PAIN - MODERATE Objective Vital Signs: Temp Pulse Resp BP Pulse Ox 97.8 F 89 16 97/58 98 02/19/19 04:00 02/19/19 04:00 02/19/19 09:15 02/19/19 04:00 02/19/19 04:00 Oxygen Devices in Use Now: Nasal Cannula Appearance: overweight, lying at 60 degrees, appears tired, NAD Eyes: No Scleral Icterus, PERRLA Ears/Nose/Mouth/Throat: Clear Oropharnyx, Mucous Membranes Moist Neck: NL Appearance and Movements; NL JVP, Trachea Midline Respiratory: Symmetrical Chest Expansion and Respiratory Effort, - - depressed BS right base. Cardiovascular: RRR, No Edema, - - no rub, + lois Abdominal: - - very obese, no hepatomegally. Extremities: No Edema Skin: No Rash or Ulcers Neurological: Alert and Oriented x 3 Lines/Tubes/Other Access: Clean, Dry and Intact Peripheral IV Laboratory Results: 02/19/19 05:59 02/19/19 05:59 INR (Anticoag Therapy) 0.95 (0.82-1.09) 02/16/19 21:44 APTT 40.6 seconds (26.0-38.0) H 02/16/19 21:44 Total Bilirubin 0.80 mg/dL (0.2-1.0) 02/18/19 06:45 AST 38 U/L (13-39) 02/18/19 06:45 ALT 15 U/L (7-52) 02/18/19 06:45 Alkaline Phosphatase 72 U/L (34-104) 02/18/19 06:45 CK-MB (CK-2) 43.0 ng/mL (0.6-6.3) H 02/17/19 05:28 B-Natriuretic Peptide 90 pg/mL (<=100) 02/16/19 10:14 Total Protein 5.7 g/dL (6.4-8.9) L 02/18/19 06:45 Albumin 3.5 g/dL (3.2-5.2) 02/18/19 06:45 Globulin 2.2 g/dL (2-4) 02/18/19 06:45 Albumin/Globulin Ratio 1.6 (1-3) 02/18/19 06:45 Triglycerides 161 mg/dL 02/17/19 05:28 Cholesterol 276 mg/dL 02/17/19 05:28 LDL Cholesterol 178 mg/dL 02/17/19 05:28 HDL Cholesterol 65.9 mg/dL 02/17/19 05:28 TSH 2.05 mcIU/mL (0.34-5.60) 02/16/19 10:14 02/16/19 02/16/19 02/16/19 10:14 12:49 16:21 Troponin I 2.17 H* 3.31 H* 4.44 H* 02/16/19 02/16/19 02/17/19 20:00 21:44 05:28 Troponin I 5.81 H* 5.47 H* 5.10 H* CRP 100 02/19/19 Diagnostic Imaging: CT PE study 02/16/2019 IMPRESSION: 1. No pulmonary embolism. 2. 1 cm groundglass nodule in the right upper lobe for which follow-up chest CT in 6-12 months is recommended by Fleischner criteria. *[facility]* [place] [address] Fax #: [phone] Transthoracic Echocardiogram Patient: Paris Beach Summary: - Left ventricle: Systolic function is moderately to severely reduced. The estimated ejection fraction is 30-35%. Akinesis of the apical anterior and septal myocardium. - Right ventricle: Systolic function is low normal. - Mitral valve: There is mild regurgitation, directed posteriorly and toward the free wall. - Aortic valve: There is trace to mild regurgitation. - Tricuspid valve: There is trace to mild regurgitation. - Pulmonary arteries: Systolic pressure can not be accurately estimated. EKG Data: ekg on admission nsr, twi avl otherwise unremarkable ekg repeat sinus tachycardia 102 bpm, 0.[address] elevation 1 and aVL with TWI ekg repeat 3rd: sinus rhythm 0.[address] elevation anterolateral and /avl Assessment/Plan Paris Beach a 58 year old presenting with pleuritic CP, SOB, fevers/chills, elev. trops found to have a NICM on cath. History suggests a subacute and acute process. Fall in December ? mechanical vs. arrhythmic. NICM etiology: Differential of Takasubo but could be a myocarditis going back to October presentation. - Continue BB and AceI, -BP precludes diuretics. Inflammation/ID: -Getting treated for possible inflammation with colchicine. Agree stopping NSAIDs. Normal ESR on arrival, newly elevated CRP today now being treated for pneumonia. Supportive care/ABX/O2 for pneumonia will help heart. Anemia new since admission. Echo today c/w Takasubo, shows improved EF c/w Vgram on cath (I personally reviewed both). I recommend continue with medical management, advance ACEI if BP tolerates. 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
[2019-02-19] MEDS: DOXYcycline IV* 100 MG in NS 0.9% 250 ML* 250 ML IVPB SCH ×2 (10:44→22:17)
--- NOTE | 2019-02-19 11:32 | ECHO ---
*[facility]* [place] [address] Fax #: [phone] Transthoracic Echocardiogram Patient: Paris Beach : 1960 Study Date: 02/19/2019 Age: 58 Gender: F HR: 87 bpm Height: 62 in /157.5 cm BSA: 1.73 m^2 Weight: 157.7 lb /71.7 kg BMI: 28.9 kg/m^2 *Instrument Sterilizer: * Yocasta Guy [facility] *Referring Physician: * Yasmany Little MD *Reading Physician: * Paulette Tejeda MD Indications: Congestive Heart Failure. History: Risk factors: Current tobacco use. Hypertension. Dyslipidemia. Labs, prior tests, procedures, and surgery: Catheterization. Performed during the current admission. Ejection fraction 15-20%. Conclusions Summary: - Left ventricle: Systolic function is moderately to severely reduced. The estimated ejection fraction is 30-35%. Akinesis of the apical anterior and septal myocardium. - Right ventricle: Systolic function is low normal. - Mitral valve: There is mild regurgitation, directed posteriorly and toward the free wall. - Aortic valve: There is trace to mild regurgitation. - Tricuspid valve: There is trace to mild regurgitation. - Pulmonary arteries: Systolic pressure can not be accurately estimated. - No prior echocardiogram to compare. Study data: Transthoracic echocardiogram. Procedure: Transthoracic echocardiography was performed. Image quality was fair. Intravenous Definity , 2 mlswas administered. Complete 2D, spectral Doppler, and color flow Doppler. Location: Bedside. Patient status: Inpatient. Patient room number: 447-1. Rhythm: Normal sinus rhythm. Findings Left ventricle: The cavity size is normal. Wall thickness is normal. Systolic function is moderately to severely reduced. The estimated ejection fraction is 30-35%. Regional wall motion abnormalities: Akinesis of the apical anterior and septal myocardium. Abnormal diastolic filling. Right ventricle: The cavity size is normal. Systolic function is low normal. Left atrium: The atrium is normal in size. Right atrium: The atrium is normal in size. Mitral valve: The leaflets are mildly thickened. There is no evidence of stenosis. There is mild regurgitation, directed posteriorly and toward the free wall. Aortic valve: The valve is trileaflet. The leaflets are mildly thickened. There is no evidence of stenosis. There is trace to mild regurgitation. Tricuspid valve: The leaflets are normal thickness. There is no evidence of stenosis. There is trace to mild regurgitation. Pulmonic valve: The leaflets are normal thickness. There is no evidence of stenosis. There is trace regurgitation. Aorta: Aortic root: The aortic root is appears normal. Ascending aorta: The ascending aorta is appears normal. Aortic arch: The aortic arch is appears normal. Pericardium: A prominent pericardial fat pad is present. There is no significant pericardial effusion. Pulmonary arteries: The main pulmonary artery is normal-sized. Systolic pressure can not be accurately estimated. Systemic veins: Inferior vena cava: The vessel is normal in size. There is (>= 50%) respiratory change in the IVC dimension. Measurements Left ventricle Value Ref Aortic valve Value Ref JAMEEL, LAX 4.9 cm 3.8 - 5.2 Naresh diam, ED 1.9 cm ---- ESD, LAX (H) 3.8 cm 2.2 - 3.5 Peak v, S 1.43 m/sec ---- FS, LAX (L) 23 % 27 - 45 VTI, S 24.2 cm ---- PW, ED, LAX 0.9 cm 0.6 - 0.9 Mean grad, S 5.0 mm Hg ---- FS (L) 23 % 27 - 45 Peak grad, S 8.0 mm Hg ---- PW, ED 0.9 cm 0.6 - 0.9 LVOT/AV, VTI ratio 0.66 ---- E', lat naresh, TDI (L) 7.4 cm/sec >=10.0 E/e', lat naresh, 11 Mitral valve Value Ref TDI Peak E 0.82 m/sec ---- E', med naresh, TDI (L) 6.0 cm/sec >=7.0 Peak A 0.54 m/sec -- -- E/e', med naresh, 14 Decel time 74 ms ---- TDI Peak grad, D 2.7 mm Hg ---- E', avg, TDI 6.7 cm/sec Peak E/A ratio 1.5 ---- E/e', avg, TDI 12 <=14 Pulmonic valve Value Ref LVOT Value Ref Peak v, S 0.86 m/sec ---- Peak pauline, S 0.95 m/sec Peak grad, S 3.0 mm Hg ---- VTI, S 16.0 cm Mean grad, S 2 mm Hg Aortic root Value Ref Root diam 3.2 cm <3.9 Ventricular septum Value Ref IVS, ED (H) 1.0 cm 0.6 - 0.9 Ascending aorta Value Ref AAo AP diam, S 3.2 cm ---- Right ventricle Value Ref JAMEEL, LAX 2.8 cm Aortic arch Value Ref JAMEEL minor ax, A4C (H) 4.0 cm 1.9 - 3.5 Arch diam 2.1 cm ---- mid Decending aorta Value Ref Left atrium Value Ref Mary peak pauline 0.74 m/sec ---- AP dim, ES 3.50 cm 2.70 - 3.80 Inferior vena cava Value Ref ML dim, A4C 4.5 cm Diam 1.4 cm ---- SI dim, A4C 4.9 cm Vol/bsa, ES, 1-p 32 ml/m^2 11 - 40 A4C Vol/bsa, ES, A/L 32 ml/m^2 16 - 34 Right atrium Value Ref SI dim, ES 4.8 cm 3.4 - 5.3 ML dim, ES, A4C 4.2 cm 2.6 - 4.4 SI dim, ES, A4C 4.8 cm 3.4 - 5.3 Estimated RAP 3 mm Hg Legend: (L) and (H) maxwell values outside specified reference range. Prepared and electronically signed by Paulette Tejeda MD 02/19/2019 11:31
[2019-02-19] MEDS: LORazepam TAB(*) 0.5 MG PO PRN (12:00)
[2019-02-19] MEDS: Atorvastatin* 80 MG TAB PO SCH (22:00)
[2019-02-19] MEDS: traMADol TAB* 50 MG PO PRN (22:15)
[2019-02-20] MEDS: Enoxaparin(*) 80 MG/0.8 ML SYR SUBCUT SCH ×2 (09:19→20:37)
[2019-02-20] MEDS: cefTRIAXone(*) 1 GM in NS 0.9% 50 ML* 50 ML IVPB SCH (09:19)
[2019-02-20] MEDS: Colchicine* 0.6 MG TAB PO SCH (09:20)
[2019-02-20] MEDS: Acetaminophen TAB* 325 MG PO PRN (09:20)
[2019-02-20] MEDS: Sertraline* 100 MG TAB PO SCH (09:21)
[2019-02-20] MEDS: Pregabalin CAP(*) 25 MG PO SCH ×4 (09:21→20:58)
[2019-02-20] MEDS: Pregabalin CAP(*) 50 MG PO SCH ×4 (09:22→20:35)
[2019-02-20] MEDS: buPROPion TAB* 100 MG PO SCH (09:23)
[2019-02-20] MEDS: Potassium Chlor TAB* 10 MEQ TAB.ER PO SCH ×2 (09:23→20:35)
[2019-02-20] MEDS: OLANzapine TAB* 10 MG PO SCH (09:23)
[2019-02-20] MEDS: Lisinopril TAB* 10 MG PO SCH (09:23)
[2019-02-20] MEDS: Metoprolol Tartrate TAB* 25 MG PO SCH ×2 (09:24→20:40)
[2019-02-20] MEDS: DOXYcycline IV* 100 MG in NS 0.9% 250 ML* 250 ML IVPB SCH ×2 (09:57→20:58)
--- NOTE | 2019-02-20 18:43 | PN ---
Subjective Date of Service: 02/20/19 Interval History: Patient feels a bit better today. She is happy she could walk to with 3 L NC O2 rather than 4. She has some respirophasic LT-sided CP anteriorly and posteriorly. Family History: Unchanged from Admission Social History: Unchanged from Admission Past Medical History: Unchanged from Admission Objective Active Medications: Acetaminophen (Tylenol Tab*) 650 mg PO Q4H PRN PRN Reason: MILD PAIN or TEMP > 100.4 Last Admin: 02/20/19 09:20 Dose: 650 mg Albuterol/Ipratropium (Duoneb (Albuterol 2.5 Mg/Ipratropium 0.5 Mg)) 1 neb INH Q4H PRN PRN Reason: SOB/WHEEZING Last Admin: 02/18/19 00:41 Dose: 1 neb Atorvastatin Calcium (Lipitor*) 80 mg PO 2100 [facility] Last Admin: 02/19/19 22:00 Dose: 80 mg Baclofen (Lioresal Tab*) 10 mg PO TID PRN PRN Reason: SPASMS Bupropion HCl (Wellbutrin Tab*) 100 mg PO DAILY [facility] Last Admin: 02/20/19 09:23 Dose: 100 mg Colchicine (Colcrys*) 0.6 mg PO DAILY [facility] Last Admin: 02/20/19 09:20 Dose: 0.6 mg Enoxaparin Sodium (Lovenox(*)) 70 mg SUBCUT Q12H [facility] Last Admin: 02/20/19 09:19 Dose: 70 mg Ceftriaxone Sodium 1 gm/ (Sodium Chloride) 50 mls @ 100 mls/hr IVPB Q24H [facility] Last Admin: 02/20/19 09:19 Dose: 100 mls/hr Doxycycline Hyclate 100 mg/ (Sodium Chloride) 250 mls @ 250 mls/hr IVPB Q12H [facility] Last Admin: 02/20/19 09:57 Dose: 250 mls/hr Lisinopril (Prinivil Tab*) 10 mg PO DAILY [facility] Last Admin: 02/20/19 09:23 Dose: Not Given Lorazepam (Ativan Tab(*)) 0.5 mg PO Q6H PRN PRN Reason: ANXIETY Last Admin: 02/19/19 12:00 Dose: 0.5 mg Metoprolol Tartrate (Lopressor Tab*) 12.5 mg PO Q12HR [facility] Last Admin: 02/20/19 09:24 Dose: Not Given Miscellaneous (Ativan Pyxis Russell) 1 ea N/A .ATIVAN IV RUSSELL PRN PRN Reason: PYXIS RUSSELL Morphine Sulfate (Morphine Inj (Syringe))*) 2 mg IV Q3H PRN PRN Reason: PAIN - SEVERE Olanzapine (Zyprexa Tab*) 10 mg PO DAILY [facility] Last Admin: 02/20/19 09:23 Dose: 10 mg Potassium Chloride (Klor Con Er Tab*) 10 meq PO BID [facility] Last Admin: 02/20/19 09:23 Dose: 10 meq Pregabalin (Lyrica Cap(*)) 25 mg PO QID [facility] Last Admin: 02/20/19 17:12 Dose: 25 mg Pregabalin (Lyrica Cap(*)) 50 mg PO QID [facility] Last Admin: 02/20/19 17:12 Dose: 50 mg Sertraline HCl (Zoloft*) 200 mg PO DAILY [facility] Last Admin: 02/20/19 09:21 Dose: 200 mg Tramadol HCl (Ultram*) 50 mg PO QID PRN PRN Reason: PAIN - MODERATE Last Admin: 02/19/19 22:15 Dose: 50 mg Vital Signs - 8 hr 02/20/19 02/20/19 02/20/19 11:15 12:05 13:32 Temperature 36.4 C Pulse Rate 79 Respiratory 16 20 20 Rate Blood Pressure 97/68 (mmHg) O2 Sat by Pulse 100 Oximetry 02/20/19 02/20/19 02/20/19 13:33 15:40 17:12 Temperature 36.4 C Pulse Rate 80 Respiratory 18 20 20 Rate Blood Pressure 100/56 (mmHg) O2 Sat by Pulse 100 Oximetry 02/20/19 17:53 Temperature Pulse Rate Respiratory 20 Rate Blood Pressure (mmHg) O2 Sat by Pulse Oximetry Oxygen Devices in Use Now: Nasal Cannula Appearance: alert, no distress Eyes: No Scleral Icterus Ears/Nose/Mouth/Throat: NL Teeth, Lips, Gums, Clear Oropharnyx Neck: NL Appearance and Movements; NL JVP Respiratory: Symmetrical Chest Expansion and Respiratory Effort, Clear to Auscultation Cardiovascular: NL Sounds; No Murmurs; No JVD, RRR Neurological: Alert and Oriented x 3 Lines/Tubes/Other Access: Clean, Dry and Intact Peripheral IV Result Diagrams: 02/19/19 05:59 02/19/19 05:59 Additional Lab and Data: Laboratory Tests 02/19/19 05:59 C-Reactive Protein 100.97 H Microbiology and Other Data: Microbiology 02/17/19 01:08 Legionella Urinary Antigen - Final Urine Negative Legionella Antigen Streptococcus pneumoniae Ag Screen - Final Negative S. pneumo Antigen 02/16/19 23:30 Nasal Screen MRSA (PCR) - Final Nasal Mrsa Not Detected Assess/Plan/Problems-Billing Assessment: Mrs Beach is a 58 yo F with PMH of IBS, fibromyalgia, depression, HLD; who presented to ED with chest pain, elevated troponin, possible pericarditis, diagnosed w/ Takatsubo syndrome. - Patient Problems (1) Pericarditis Current Visit: Yes Status: Acute Priority: High Code(s): I31.9 - DISEASE OF PERICARDIUM, UNSPECIFIED SNOMED Code(s): 9522465 Comment: - Presented with pleuritic chest pain with EKG changes. - Cardiac cath showed EF 15-20%, with no significant CAD. - Impression is she probably has Takotsubo, but myopericarditis on the differential (although presenting ESR was only 3) - continue colchicine. - Repeat echo tomorrow to assess EF recovery. (2) Acute diastolic (congestive) heart failure Current Visit: Yes Status: Acute Priority: Medium Code(s): I50.31 - ACUTE DIASTOLIC (CONGESTIVE) HEART FAILURE SNOMED Code(s): 419231658 Comment: - She appears euvolemic at this time. - Her dyspnea may be to pneumonia plus CHF (3) Pneumonia Current Visit: Yes Status: Acute Priority: Medium Code(s): J18.9 - PNEUMONIA, UNSPECIFIED ORGANISM SNOMED Code(s): 644313488 Comment: - CxR shows bilateral infiltrates compatible with pneumonia. - Continue Ceftriaxone and Doxycycline. (4) DVT prophylaxis Current Visit: Yes Status: Acute Priority: Medium Code(s): Z29.9 - ENCOUNTER FOR PROPHYLACTIC MEASURES, UNSPECIFIED SNOMED Code(s): 471353916 Comment: - Lovenox. Status and Disposition: Inpatient. Further management pending repeat echo and Cardiology f/u.
[2019-02-20] MEDS: Atorvastatin* 80 MG TAB PO SCH (20:35)
[2019-02-20] MEDS: LORazepam TAB(*) 0.5 MG PO PRN (20:36)
[2019-02-20] MEDS: traMADol TAB* 50 MG PO PRN (22:08)
[2019-02-21 05:49] LABS: ABS Basophils 0.1 10^3/ul (0-0.2); ABS Eosinophils 0.6 10^3/ul (0-0.6); ABS Lymphocytes 2.7 10^3/ul (1.0-4.8); ABS Monocytes 0.8 10^3/ul (0-0.8); ABS Neutrophils 4.2 10^3/ul (1.5-7.7); Eosinophil % 7.2 %; Hematocrit 32 % (35-47); Mean Corpuscular HGB Conc 34 g/dL (31-36); Mean Corpuscular Hemoglobin 32 pg (27-31); Mean Corpuscular Volume 94 fL (80-97); Mean Platelet Volume 8.3 fL (7.4-10.4); Nucleated Red Blood Cells % 0.1; Platelet Count 253 10^3/uL (150-450); Red Blood Count 3.46 10^6 /uL (3.70-4.87); Red Cell Distribution Width 13 % (10-15); White Blood Count 8.3 10^3/uL (3.5-10.8)
[2019-02-21 06:11] LABS: % Iron Saturation 23 % (15-55); Iron 63 ug/dL (50-212); Total Iron Binding Capacity 274 mcg/dL (250-450); Transferrin 196 mg/dL (203-362)
[2019-02-21 06:30] LABS: Ferritin 157.9 ng/mL (11-307)
[2019-02-21] MEDS: cefTRIAXone(*) 1 GM in NS 0.9% 50 ML* 50 ML IVPB SCH (08:57)
[2019-02-21] MEDS: Sertraline* 100 MG TAB PO SCH (09:02)
[2019-02-21] MEDS: Colchicine* 0.6 MG TAB PO SCH (09:03)
[2019-02-21] MEDS: Pregabalin CAP(*) 25 MG PO SCH ×4 (09:03→20:48)
[2019-02-21] MEDS: Lisinopril TAB* 10 MG PO SCH (09:03)
[2019-02-21] MEDS: buPROPion TAB* 100 MG PO SCH (09:04)
[2019-02-21] MEDS: OLANzapine TAB* 10 MG PO SCH (09:04)
[2019-02-21] MEDS: Pregabalin CAP(*) 50 MG PO SCH ×4 (09:04→20:47)
[2019-02-21] MEDS: Enoxaparin(*) 80 MG/0.8 ML SYR SUBCUT SCH ×2 (09:05→20:48)
[2019-02-21] MEDS: Metoprolol Tartrate TAB* 25 MG PO SCH ×2 (09:05→20:50)
[2019-02-21] MEDS: Potassium Chlor TAB* 10 MEQ TAB.ER PO SCH ×2 (09:05→20:47)
[2019-02-21] MEDS: DOXYcycline IV* 100 MG in NS 0.9% 250 ML* 250 ML IVPB SCH ×2 (10:37→20:49)
[2019-02-21] MEDS: Acetaminophen TAB* 325 MG PO PRN ×2 (13:14→20:48)
--- NOTE | 2019-02-21 15:54 | ECHO ---
*[facility]* [place] [address] Fax #: [phone] Limited Transthoracic Echocardiogram Patient: Paris Beach : 1960 Study Date: 02/21/2019 Age: 58 Gender: F HR: 79 bpm Height: 62 in /157.5 cm BSA: 1.72 m^2 Weight: 155.7 lb /70.8 kg BMI: 28.5 kg/m^2 *Facility Environmental Technician: * Yocasta Guy RD *Referring Physician: * Ralph Mcleod *Reading Physician: * Grace Echavarria MD Indications: Cardiomyopathy. History: PMH: Cardiomyopathy. Risk factors: Current tobacco use. Hypertension. Dyslipidemia. Conclusions Summary: - Left ventricle: The cavity size is normal. Systolic function is moderately reduced. The estimated ejection fraction is 35-40%. Severe hypokinesis of the mid-apicalanteroseptal myocardium. Severe hypokinesis of the apicalanterior and anterolateral myocardium. - C/t 02/19/2019, this is limited echocardiogram for f/u on left ventricle ejection fraction. There is no sig changes. Study data: Transthoracic echocardiogram, limited study. Procedure: Transthoracic echocardiography was performed. Image quality was fair. Location: Bedside. Patient status: Inpatient. Patient room number: 447-1. Rhythm: Normal sinus rhythm. Findings Left ventricle: The cavity size is normal. Systolic function is moderately reduced. The estimated ejection fraction is 35-40%. Regional wall motion abnormalities: Severe hypokinesis of the mid-apicalanteroseptal myocardium. Severe hypokinesis of the apicalanterior and anterolateral myocardium. Right ventricle: The cavity size is normal. Systolic function is normal. Pericardium: A prominent pericardial fat pad is present. There is no significant pericardial effusion. Prepared and electronically signed by Grace Echavarria MD 02/21/2019 15:54
--- NOTE | 2019-02-21 16:12 | PN ---
Subjective Date of Service: 02/21/19 Interval History: Patient has continued LT-sided anterior and posterior chest pain. She has weaned off O2, breathing is OK. She feels weak and tired. Has concerns about going home alone, will ask a friend to come stay. Worries about transportation to cardiac rehab. Family History: Unchanged from Admission Social History: Unchanged from Admission Past Medical History: Unchanged from Admission Objective Active Medications: Acetaminophen (Tylenol Tab*) 650 mg PO Q4H PRN PRN Reason: MILD PAIN or TEMP > 100.4 Last Admin: 02/21/19 13:14 Dose: 650 mg Albuterol/Ipratropium (Duoneb (Albuterol 2.5 Mg/Ipratropium 0.5 Mg)) 1 neb INH Q4H PRN PRN Reason: SOB/WHEEZING Last Admin: 02/18/19 00:41 Dose: 1 neb Atorvastatin Calcium (Lipitor*) 80 mg PO 2100 [facility] Last Admin: 02/20/19 20:35 Dose: 80 mg Baclofen (Lioresal Tab*) 10 mg PO TID PRN PRN Reason: SPASMS Bupropion HCl (Wellbutrin Tab*) 100 mg PO DAILY [facility] Last Admin: 02/21/19 09:04 Dose: 100 mg Colchicine (Colcrys*) 0.6 mg PO DAILY [facility] Last Admin: 02/21/19 09:03 Dose: 0.6 mg Enoxaparin Sodium (Lovenox(*)) 70 mg SUBCUT Q12H [facility] Last Admin: 02/21/19 09:05 Dose: 70 mg Ceftriaxone Sodium 1 gm/ (Sodium Chloride) 50 mls @ 100 mls/hr IVPB Q24H [facility] Last Admin: 02/21/19 08:57 Dose: 100 mls/hr Doxycycline Hyclate 100 mg/ (Sodium Chloride) 250 mls @ 250 mls/hr IVPB Q12H [facility] Last Admin: 02/21/19 10:37 Dose: 250 mls/hr Lisinopril (Prinivil Tab*) 10 mg PO DAILY [facility] Last Admin: 02/21/19 09:03 Dose: 10 mg Lorazepam (Ativan Tab(*)) 0.5 mg PO Q6H PRN PRN Reason: ANXIETY Last Admin: 02/20/19 20:36 Dose: 0.5 mg Metoprolol Tartrate (Lopressor Tab*) 12.5 mg PO Q12HR [facility] Last Admin: 02/21/19 09:05 Dose: Not Given Miscellaneous (Ativan Pyxis Russell) 1 ea N/A .ATIVAN IV RUSSELL PRN PRN Reason: PYXIS RUSSELL Morphine Sulfate (Morphine Inj (Syringe))*) 2 mg IV Q3H PRN PRN Reason: PAIN - SEVERE Olanzapine (Zyprexa Tab*) 10 mg PO DAILY [facility] Last Admin: 02/21/19 09:04 Dose: 10 mg Potassium Chloride (Klor Con Er Tab*) 10 meq PO BID [facility] Last Admin: 02/21/19 09:05 Dose: 10 meq Pregabalin (Lyrica Cap(*)) 25 mg PO QID [facility] Last Admin: 02/21/19 13:15 Dose: 25 mg Pregabalin (Lyrica Cap(*)) 50 mg PO QID [facility] Last Admin: 02/21/19 13:15 Dose: 50 mg Sertraline HCl (Zoloft*) 200 mg PO DAILY [facility] Last Admin: 02/21/19 09:02 Dose: 200 mg Tramadol HCl (Ultram*) 50 mg PO QID PRN PRN Reason: PAIN - MODERATE Last Admin: 02/20/19 22:08 Dose: 50 mg Vital Signs - 8 hr 02/21/19 02/21/19 02/21/19 08:12 09:03 09:04 Temperature 36.4 C Pulse Rate 87 Respiratory 20 18 18 Rate Blood Pressure 105/79 (mmHg) O2 Sat by Pulse 100 Oximetry 02/21/19 02/21/19 02/21/19 09:15 11:03 13:15 Temperature 36.8 C Pulse Rate 81 Respiratory 18 20 18 Rate Blood Pressure 96/61 (mmHg) O2 Sat by Pulse 100 Oximetry Oxygen Devices in Use Now: None Appearance: alert, no distress Ears/Nose/Mouth/Throat: Clear Oropharnyx Respiratory: Symmetrical Chest Expansion and Respiratory Effort, Clear to Auscultation Cardiovascular: NL Sounds; No Murmurs; No JVD, RRR Neurological: Alert and Oriented x 3 Lines/Tubes/Other Access: Clean, Dry and Intact Peripheral IV Result Diagrams: 02/21/19 05:11 02/19/19 05:59 Microbiology and Other Data: Microbiology 02/17/19 01:08 Urine Legionella Urinary Antigen - Final 02/17/19 01:08 Urine Streptococcus pneumoniae Ag Screen - Final Negative Legionella Antigen Negative S. pneumo Antigen 02/16/19 23:30 Nasal Nasal Screen MRSA (PCR) - Final Mrsa Not Detected 02/16/19 18:40 Urine Urine Culture - Final 02/17/19 05:28 Blood Venous Aerobic Blood Culture - Preliminary 02/17/19 05:28 Blood Venous Anaerobic Blood Culture - Preliminary No Growth Day 4 No Growth Day 4 02/17/19 05:28 Blood Venous Aerobic Blood Culture - Preliminary 02/17/19 05:28 Blood Venous Anaerobic Blood Culture - Preliminary No Growth Day 4 No Growth Day 4 Assess/Plan/Problems-Billing Assessment: Mrs Beach is a 58 yo F with PMH of IBS, fibromyalgia, depression, HLD; who presented to ED with chest pain, elevated troponin, possible pericarditis, diagnosed w/ Takatsubo syndrome. - Patient Problems (1) Pericarditis Current Visit: Yes Status: Acute Priority: High Code(s): I31.9 - DISEASE OF PERICARDIUM, UNSPECIFIED SNOMED Code(s): 7071504 Comment: - Presented with pleuritic chest pain with EKG changes. - Cardiac cath showed EF 15-20%, with no significant CAD. - Echo 2 days ago showed improved EF compared to cath - Impression is she probably has Takotsubo, but myopericarditis on the differential (although presenting ESR was only 3) - continue colchicine. - Repeat echo today to assess EF recovery. (2) Acute diastolic (congestive) heart failure Current Visit: Yes Status: Acute Priority: Medium Code(s): I50.31 - ACUTE DIASTOLIC (CONGESTIVE) HEART FAILURE SNOMED Code(s): 923391222 Comment: - She appears euvolemic at this time. - Her dyspnea may be to pneumonia plus CHF (3) Pneumonia Current Visit: Yes Status: Acute Priority: Medium Code(s): J18.9 - PNEUMONIA, UNSPECIFIED ORGANISM SNOMED Code(s): 630030476 Comment: - CxR shows bilateral infiltrates compatible with pneumonia. - Continue Ceftriaxone and Doxycycline. (4) DVT prophylaxis Current Visit: Yes Status: Acute Priority: Medium Code(s): Z29.9 - ENCOUNTER FOR PROPHYLACTIC MEASURES, UNSPECIFIED SNOMED Code(s): 910555986 Comment: - Lovenox. Status and Disposition: Inpatient. If echo continues to improve, can go home in 1-2 days
[2019-02-21] MEDS: Atorvastatin* 80 MG TAB PO SCH (20:47)
[2019-02-22] MEDS: cefTRIAXone(*) 1 GM in NS 0.9% 50 ML* 50 ML IVPB SCH (08:51)
[2019-02-22] MEDS: Acetaminophen TAB* 325 MG PO PRN ×2 (08:53→20:56)
[2019-02-22] MEDS: Pregabalin CAP(*) 25 MG PO SCH ×4 (08:53→20:18)
[2019-02-22] MEDS: Colchicine* 0.6 MG TAB PO SCH (08:56)
[2019-02-22] MEDS: Lisinopril TAB* 10 MG PO SCH (08:56)
[2019-02-22] MEDS: Sertraline* 100 MG TAB PO SCH (08:57)
[2019-02-22] MEDS: OLANzapine TAB* 10 MG PO SCH (08:57)
[2019-02-22] MEDS: Pregabalin CAP(*) 50 MG PO SCH ×4 (08:57→20:19)
[2019-02-22] MEDS: Potassium Chlor TAB* 10 MEQ TAB.ER PO SCH ×2 (08:58→20:18)
[2019-02-22] MEDS: buPROPion TAB* 100 MG PO SCH (08:58)
[2019-02-22] MEDS: Metoprolol Tartrate TAB* 25 MG PO SCH ×2 (08:58→20:18)
[2019-02-22] MEDS: Enoxaparin(*) 80 MG/0.8 ML SYR SUBCUT SCH ×2 (08:59→20:14)
[2019-02-22] MEDS: DOXYcycline IV* 100 MG in NS 0.9% 250 ML* 250 ML IVPB SCH ×2 (10:41→20:14)
[2019-02-22] MEDS: Baclofen TAB* 10 MG PO PRN ×2 (12:53→20:58)
--- NOTE | 2019-02-22 14:22 | PN ---
Subjective Date of Service: 02/22/19 Interval History: Patient bothered by respirophasic and positional LT-sided chest pain. She is ambulating in mendez, not exertional pain. Denies dizziness, palpitations. Family History: Unchanged from Admission Social History: Unchanged from Admission Past Medical History: Unchanged from Admission Objective Active Medications: Acetaminophen (Tylenol Tab*) 650 mg PO Q4H PRN PRN Reason: MILD PAIN or TEMP > 100.4 Last Admin: 02/22/19 08:53 Dose: 650 mg Albuterol/Ipratropium (Duoneb (Albuterol 2.5 Mg/Ipratropium 0.5 Mg)) 1 neb INH Q4H PRN PRN Reason: SOB/WHEEZING Last Admin: 02/18/19 00:41 Dose: 1 neb Atorvastatin Calcium (Lipitor*) 80 mg PO 2100 [facility] Last Admin: 02/21/19 20:47 Dose: 80 mg Baclofen (Lioresal Tab*) 10 mg PO TID PRN PRN Reason: SPASMS Last Admin: 02/22/19 12:53 Dose: 10 mg Bupropion HCl (Wellbutrin Tab*) 100 mg PO DAILY [facility] Last Admin: 02/22/19 08:58 Dose: 100 mg Colchicine (Colcrys*) 0.6 mg PO DAILY [facility] Last Admin: 02/22/19 08:56 Dose: 0.6 mg Enoxaparin Sodium (Lovenox(*)) 70 mg SUBCUT Q12H [facility] Last Admin: 02/22/19 08:59 Dose: 70 mg Ceftriaxone Sodium 1 gm/ (Sodium Chloride) 50 mls @ 100 mls/hr IVPB Q24H [facility] Last Admin: 02/22/19 08:51 Dose: 100 mls/hr Doxycycline Hyclate 100 mg/ (Sodium Chloride) 250 mls @ 250 mls/hr IVPB Q12H [facility] Last Admin: 02/22/19 10:41 Dose: 250 mls/hr Lisinopril (Prinivil Tab*) 10 mg PO DAILY [facility] Last Admin: 02/22/19 08:56 Dose: 10 mg Lorazepam (Ativan Tab(*)) 0.5 mg PO Q6H PRN PRN Reason: ANXIETY Last Admin: 02/20/19 20:36 Dose: 0.5 mg Metoprolol Tartrate (Lopressor Tab*) 12.5 mg PO Q12HR [facility] Last Admin: 02/22/19 08:58 Dose: Not Given Miscellaneous (Ativan Pyxis Russell) 1 ea N/A .ATIVAN IV RUSSELL PRN PRN Reason: PYXIS RUSSELL Morphine Sulfate (Morphine Inj (Syringe))*) 2 mg IV Q3H PRN PRN Reason: PAIN - SEVERE Olanzapine (Zyprexa Tab*) 10 mg PO DAILY [facility] Last Admin: 02/22/19 08:57 Dose: 10 mg Potassium Chloride (Klor Con Er Tab*) 10 meq PO BID [facility] Last Admin: 02/22/19 08:58 Dose: 10 meq Pregabalin (Lyrica Cap(*)) 25 mg PO QID [facility] Last Admin: 02/22/19 12:53 Dose: 25 mg Pregabalin (Lyrica Cap(*)) 50 mg PO QID [facility] Last Admin: 02/22/19 12:51 Dose: 50 mg Sertraline HCl (Zoloft*) 200 mg PO DAILY [facility] Last Admin: 02/22/19 08:57 Dose: 200 mg Tramadol HCl (Ultram*) 50 mg PO QID PRN PRN Reason: PAIN - MODERATE Last Admin: 02/20/19 22:08 Dose: 50 mg Vital Signs - 8 hr 02/22/19 02/22/19 02/22/19 07:31 08:00 08:53 Temperature 36.4 C Pulse Rate 79 Respiratory 16 16 16 Rate Blood Pressure 121/49 (mmHg) O2 Sat by Pulse 99 Oximetry 02/22/19 02/22/19 02/22/19 08:57 11:27 12:51 Temperature 36.5 C Pulse Rate 69 Respiratory 16 20 16 Rate Blood Pressure 106/58 (mmHg) O2 Sat by Pulse 98 Oximetry 02/22/19 12:53 Temperature Pulse Rate Respiratory 16 Rate Blood Pressure (mmHg) O2 Sat by Pulse Oximetry Oxygen Devices in Use Now: None Appearance: alert, no distress Respiratory: Symmetrical Chest Expansion and Respiratory Effort, Clear to Auscultation Cardiovascular: NL Sounds; No Murmurs; No JVD, RRR Lines/Tubes/Other Access: Clean, Dry and Intact Peripheral IV Nutrition: Taking PO's Result Diagrams: 02/21/19 05:11 02/19/19 05:59 Assess/Plan/Problems-Billing Assessment: Mrs Beach is a 58 yo F with PMH of IBS, fibromyalgia, depression, HLD; who presented to ED with chest pain, elevated troponin, possible pericarditis, diagnosed w/ Takatsubo syndrome. - Patient Problems (1) Pericarditis Current Visit: Yes Status: Acute Priority: High Code(s): I31.9 - DISEASE OF PERICARDIUM, UNSPECIFIED SNOMED Code(s): 5508007 Comment: - Cardiac cath showed EF 15-20%, with no significant CAD. - Echo 2 days ago showed improved EF compared to cath - Impression is she probably has Takotsubo, but pericarditis so continue colchicine. (2) Acute diastolic (congestive) heart failure Current Visit: Yes Status: Acute Priority: Medium Code(s): I50.31 - ACUTE DIASTOLIC (CONGESTIVE) HEART FAILURE SNOMED Code(s): 272744087 Comment: - She appears euvolemic at this time. - Her dyspnea may be to pneumonia plus CHF - LV dysfunction remains severe, will need LifeVest. This was ordered yesterday. (3) Pneumonia Current Visit: Yes Status: Acute Priority: Medium Code(s): J18.9 - PNEUMONIA, UNSPECIFIED ORGANISM SNOMED Code(s): 744391867 Comment: - CXR shows bilateral infiltrates compatible with pneumonia. - Continue Ceftriaxone and Doxycycline. (4) DVT prophylaxis Current Visit: Yes Status: Acute Priority: Medium Code(s): Z29.9 - ENCOUNTER FOR PROPHYLACTIC MEASURES, UNSPECIFIED SNOMED Code(s): 649040813 Comment: - Lovenox. (5) Chest wall pain Current Visit: Yes Status: Acute Priority: Medium Code(s): R07.89 - OTHER CHEST PAIN SNOMED Code(s): 108936093 Comment: -Can use Tylenol PRN -Will add lidocaine patch Status and Disposition: Inpatient. If echo continues to improve, can go home in 1-2 days
[2019-02-22] MEDS: Lidocaine PATCH 5%* 1 PATCH TRANSDERM SCH (16:17)
[2019-02-22] MEDS: traMADol TAB* 50 MG PO PRN (16:17)
[2019-02-22] MEDS: Atorvastatin* 80 MG TAB PO SCH (20:14)
[2019-02-22] MEDS: Lidocaine Patch REMOVE* 1 NOTE MISC SCH (22:00)
[2019-02-23] MEDS: cefTRIAXone(*) 1 GM in NS 0.9% 50 ML* 50 ML IVPB SCH (08:10)
[2019-02-23] MEDS: Lidocaine PATCH 5%* 1 PATCH TRANSDERM SCH (08:12)
[2019-02-23] MEDS: Enoxaparin(*) 80 MG/0.8 ML SYR SUBCUT SCH ×2 (08:13→21:49)
[2019-02-23] MEDS: Acetaminophen TAB* 325 MG PO PRN ×4 (08:13→22:03)
[2019-02-23] MEDS: Pregabalin CAP(*) 25 MG PO SCH ×4 (08:14→21:54)
[2019-02-23] MEDS: Potassium Chlor TAB* 10 MEQ TAB.ER PO SCH ×2 (08:14→22:00)
[2019-02-23] MEDS: Pregabalin CAP(*) 50 MG PO SCH ×4 (08:14→21:58)
[2019-02-23] MEDS: Sertraline* 100 MG TAB PO SCH (08:14)
[2019-02-23] MEDS: Colchicine* 0.6 MG TAB PO SCH (08:14)
[2019-02-23] MEDS: buPROPion TAB* 100 MG PO SCH (08:15)
[2019-02-23] MEDS: OLANzapine TAB* 10 MG PO SCH (08:15)
[2019-02-23] MEDS: traMADol TAB* 50 MG PO PRN ×2 (08:30→21:55)
[2019-02-23] MEDS: Lisinopril TAB* 10 MG PO SCH (08:30)
[2019-02-23] MEDS: Baclofen TAB* 10 MG PO PRN ×2 (08:30→21:57)
[2019-02-23] MEDS: Metoprolol Tartrate TAB* 25 MG PO SCH ×2 (08:31→21:59)
[2019-02-23] MEDS: DOXYcycline IV* 100 MG in NS 0.9% 250 ML* 250 ML IVPB SCH ×2 (09:28→21:49)
--- NOTE | 2019-02-23 10:03 | PN ---
Subjective Date of Service: 02/23/19 Interval History: L-sided chest pain continues. Lidocaine patch has been helpful. She walked 4 times around nursing area w/o O2. Family History: Unchanged from Admission Social History: Unchanged from Admission Past Medical History: Unchanged from Admission Objective Active Medications: Acetaminophen (Tylenol Tab*) 650 mg PO Q4H PRN PRN Reason: MILD PAIN or TEMP > 100.4 Last Admin: 02/23/19 08:13 Dose: 650 mg Albuterol/Ipratropium (Duoneb (Albuterol 2.5 Mg/Ipratropium 0.5 Mg)) 1 neb INH Q4H PRN PRN Reason: SOB/WHEEZING Last Admin: 02/18/19 00:41 Dose: 1 neb Atorvastatin Calcium (Lipitor*) 80 mg PO 2100 [facility] Last Admin: 02/22/19 20:14 Dose: 80 mg Baclofen (Lioresal Tab*) 10 mg PO TID PRN PRN Reason: SPASMS Last Admin: 02/23/19 08:30 Dose: 10 mg Bupropion HCl (Wellbutrin Tab*) 100 mg PO DAILY [facility] Last Admin: 02/23/19 08:15 Dose: 100 mg Colchicine (Colcrys*) 0.6 mg PO DAILY [facility] Last Admin: 02/23/19 08:14 Dose: 0.6 mg Enoxaparin Sodium (Lovenox(*)) 70 mg SUBCUT Q12H [facility] Last Admin: 02/23/19 08:13 Dose: 70 mg Ceftriaxone Sodium 1 gm/ (Sodium Chloride) 50 mls @ 100 mls/hr IVPB Q24H [facility] Last Admin: 02/23/19 08:10 Dose: 100 mls/hr Doxycycline Hyclate 100 mg/ (Sodium Chloride) 250 mls @ 250 mls/hr IVPB Q12H [facility] Last Admin: 02/23/19 09:28 Dose: 250 mls/hr Lidocaine (Lidoderm 5% Patch*) 1 patch TRANSDERM DAILY [facility] Last Admin: 02/23/19 08:12 Dose: 1 patch Lisinopril (Prinivil Tab*) 10 mg PO DAILY [facility] Last Admin: 02/23/19 08:30 Dose: 10 mg Lorazepam (Ativan Tab(*)) 0.5 mg PO Q6H PRN PRN Reason: ANXIETY Last Admin: 02/20/19 20:36 Dose: 0.5 mg Metoprolol Tartrate (Lopressor Tab*) 12.5 mg PO Q12HR [facility] Last Admin: 02/23/19 08:31 Dose: Not Given Miscellaneous (Ativan Pyxis Russell) 1 ea N/A .ATIVAN IV RUSSELL PRN PRN Reason: PYXIS RUSSELL Morphine Sulfate (Morphine Inj (Syringe))*) 2 mg IV Q3H PRN PRN Reason: PAIN - SEVERE Olanzapine (Zyprexa Tab*) 10 mg PO DAILY [facility] Last Admin: 02/23/19 08:15 Dose: 10 mg Pharmacy Profile Note (Lidocaine Patch Remove*) 1 note N/A 2100 [facility] Last Admin: 02/22/19 22:00 Dose: 1 note Potassium Chloride (Klor Con Er Tab*) 10 meq PO BID [facility] Last Admin: 02/23/19 08:14 Dose: 10 meq Pregabalin (Lyrica Cap(*)) 25 mg PO QID [facility] Last Admin: 02/23/19 08:14 Dose: 25 mg Pregabalin (Lyrica Cap(*)) 50 mg PO QID [facility] Last Admin: 02/23/19 08:14 Dose: 50 mg Sertraline HCl (Zoloft*) 200 mg PO DAILY [facility] Last Admin: 02/23/19 08:14 Dose: 200 mg Tramadol HCl (Ultram*) 50 mg PO QID PRN PRN Reason: PAIN - MODERATE Last Admin: 02/23/19 08:30 Dose: 50 mg Vital Signs - 8 hr 02/23/19 02/23/19 02/23/19 03:25 08:14 08:28 Temperature 36.6 C 36.3 C Pulse Rate 75 81 Respiratory 20 18 18 Rate Blood Pressure 120/76 128/64 (mmHg) O2 Sat by Pulse 99 96 Oximetry Oxygen Devices in Use Now: None Appearance: alert, no distress Neck: No Thyroid Enlargement, Masses Respiratory: Clear to Auscultation, Clear to Percussion Cardiovascular: NL Sounds; No Murmurs; No JVD, RRR Abdominal: NL Sounds; No Tenderness; No Distention Neurological: Alert and Oriented x 3 Lines/Tubes/Other Access: Clean, Dry and Intact Peripheral IV Result Diagrams: 02/21/19 05:11 02/19/19 05:59 Assess/Plan/Problems-Billing Assessment: Mrs Beach is a 58 yo F with PMH of IBS, fibromyalgia, depression, HLD; who presented to ED with chest pain, elevated troponin, possible pericarditis, diagnosed w/ Takotsubo syndrome. - Patient Problems (1) Pericarditis Current Visit: Yes Status: Suspected Priority: High Code(s): I31.9 - DISEASE OF PERICARDIUM, UNSPECIFIED SNOMED Code(s): 8232292 Comment: - Cardiac cath showed EF 15-20%, with no significant CAD. - Echo 4 days ago showed improved EF compared to cath - Echo 2 days ago showed EF 35-40%, unclear that she need LifeVest - Impression is she probably has Takotsubo, - No respons to colchicine, doubt pericarditis. - Will check echo limited today or tomorrow AM (2) Acute diastolic (congestive) heart failure Current Visit: Yes Status: Ruled-out Priority: Medium Code(s): I50.31 - ACUTE DIASTOLIC (CONGESTIVE) HEART FAILURE SNOMED Code(s): 428546181 Comment: - She appears euvolemic at this time. - Her dyspnea may be to pneumonia plus CHF - If EF <35%, will need to wait for LifeVest placement (3) Pneumonia Current Visit: Yes Status: Suspected Priority: Medium Code(s): J18.9 - PNEUMONIA, UNSPECIFIED ORGANISM SNOMED Code(s): 650703767 Comment: - CXR shows bilateral infiltrates compatible with pneumonia. - Continue Ceftriaxone and Doxycycline through tomorrow, can go home off antibiotics (4) DVT prophylaxis Current Visit: Yes Status: Acute Priority: Medium Code(s): Z29.9 - ENCOUNTER FOR PROPHYLACTIC MEASURES, UNSPECIFIED SNOMED Code(s): 689256346 Comment: - Lovenox. (5) Chest wall pain Current Visit: Yes Status: Acute Priority: Medium Code(s): R07.89 - OTHER CHEST PAIN SNOMED Code(s): 520622121 Comment: -Can use Tylenol PRN -Responding to lidocaine patch Status and Disposition: Inpatient. If echo continues to improve, can go home tomorrow
--- NOTE | 2019-02-23 11:29 | DS ---
CC: Dr. Little; Dr. Guzman; [facility] * DISCHARGE SUMMARY: DATE OF ADMISSION: 02/16/19 DATE OF ANTICIPATED DISCHARGE: 02/24/19 PRIMARY DIAGNOSIS: Takotsubo cardiomyopathy. SECONDARY DIAGNOSES: 1. Left anterior and posterior chest wall pain due to trauma from a fall 1 month ago. 2. Suspected pericarditis. 3. Suspected pneumonia. 4. Fibromyalgia. 5. Hyperlipidemia. 6. Depression. 7. Elevated troponin. 8. Irritable bowel syndrome with diarrhea. MEDICATIONS ON DISCHARGE: 1. Baclofen 10 mg p.o. t.i.d. spasms. 2. Wellbutrin SR 100 mg p.o. daily. 3. Hyoscyamine ER 0.275 mg p.o. b.i.d. p.r.n. for diarrhea. 4. Meloxicam 7.5 mg p.o. b.i.d. 5. Olanzapine 10 mg p.o. daily. 6. Lyrica 75 mg p.o. 4 times a day. 7. Sertraline 200 mg p.o. daily. 8. Tramadol 50 mg p.o. 4 times a day p.r.n. for moderate pain. 9. Acetaminophen 650 mg p.o. q.4 hours p.r.n. for mild pain or fever. 10. Atorvastatin 80 mg p.o. at bedtime. 11. Lidocaine patch for left chest wall topically daily for 12 hours, remove in evening. 12. Lisinopril 10 mg p.o. daily. 13. Metoprolol 12.5 mg p.o. b.i.d. 14. Potassium chloride 10 mEq p.o. b.i.d. HOSPITAL COURSE: A 58-year-old woman with recent loss of her daughter to a murder over the summer and recent fall with left chest trauma 1 month prior to admission presented with left-sided chest pain that radiated to her left scapula. She also had respirophasic component of this pain without any shortness of breath as well as nausea. The patient's initial EKG showed normal sinus rhythm, normal axis, no acute ST- or T-wave changes to suggest ischemia. However, overnight on the admission, her EKG evolved with diffuse ST elevations. Her initial troponin was 2.17, which rosette to 5.81 during the first 12 hours of her admission, which fell to 5.1 on the day after admission. The patient's evolving EKG and elevated troponin led to urgent cardiac catheterization overnight during the date of admission. The cardiac catheterization revealed normal patent coronary arteries and ejection fraction from 15% to 20% with anteroseptal and apical akinesis or hypokinesis. To clarify, the coronaries were patent, but there was some nonocclusive disease including a 50% ostial narrowing at the marginal branch of the circumflex and a very mild 25% to 30% narrowing on the diagonal branch of the LAD. The impression of the cardiology consultation with Dr. Little and Dr. Lehman was that the patient had takotsubo cardiomyopathy. The differential of her chest pain, elevated troponin, and diffuse injury pattern also included pericarditis. The patient was managed in the ICU and in telemetry post procedure for monitoring for arrhythmias and decompensation of her heart failure. The patient was started on colchicine for possible pericarditis, but this did not seem to have any effect on her ongoing chest discomfort, so this was stopped on discharge. The patient did receive IV furosemide on one occasion due to worsening dyspnea and suspicion of fluid- overloaded heart failure. However, her overall intakes and outputs were inaccurate and her weight went down from 71 to 68 kg during her hospital stay. It is not clear that she needs any diuresis ongoing. Subsequent to the cardiac catheterization, the patient had a transthoracic echocardiogram on 02/19/19 which showed an improvement of her ejection fraction up to the 30% to 35% range. There was mild mitral regurgitation and mild aortic insufficiency. The akinesis of the apical anterior and septal myocardium continued. A limited echocardiogram on 02/21/19 showed ejection fraction of 35% to 40%. The patient was considered for a Life Vest due to her low EF and myocardial injury. At the time of dictation, we are hearing that this is indicated for patients with less than 35% ejection fraction , so she may not quality. A repeat echocardiogram will be completed this afternoon or tomorrow morning to reassess her EF. If her EF is 35+, she can go home without the Life Vest. If it is less than 35, we will complete that order and keep it in the hospital until it is placed. The patient's pulmonary status was assessed on admission due to her chest pain and respirophasic pain. On 02/16/19, a CT angiogram of the chest and pelvis showed no pulmonary emboli, but did show a 1 cm ground-glass nodule in the right upper lobe with recommended repeat chest CT in 6 to 12 months. However, on 02/18/19 when the patient developed dyspnea, a repeat chest x-ray showed patchy interstitial and alveolar consolidation, although it was not particularly focused on the right or left upper lobe. There is an area of possible infiltrate in the left lower lobe. The patient was started on ceftriaxone and doxycycline at that point for hospital acquired pneumonia and has received 6 days of treatment by the time of discharge on 02/24/19. She does not need to go home on antibiotics. Repeat chest x-ray should be considered in [address] CT should be considered in 6 months. Urine legionella and pneumonococcal antigens were negative. MRSA was negative. Blood cultures x2 and urine cultures were all negative. The patient had a white count of 12.2 on admission and it went up to 22 on 02/17 and down to 8.3 for discharge. She does have a normocytic anemia with a hemoglobin of 11. Sedimentation rate was 3. Iron, TIBC, and ferritin were checked which were essentially normal. Vitamin B12 was 400. The patient's cholesterol was checked during the hospital stay and her LDL was 178. Given her subclinical coronary lesions and hyperlipidemia, she was started on a high-dose statin. DISPOSITION: To home where she will stay with friends for a week or two. She is advised to seek counseling at [facility]. CONDITION: Stable. STATUS: Inpatient. DIET: Low-salt, low-fat. ACTIVITY: Ambulate as tolerated. FOLLOWUP: Should also include primary care with Dr. Guzman within a week and cardiology followup with Dr. Little in 1 to 2 weeks. TIME SPENT: I spent more than 50 minutes with the patient on the day of discharge as well as completing necessary paperwork. [id number]/CPS #: [id number] MTDD
[2019-02-23] MEDS: Atorvastatin* 80 MG TAB PO SCH (21:49)
[2019-02-23] MEDS: Lidocaine Patch REMOVE* 1 NOTE MISC SCH (21:51)
[2019-02-24] MEDS ORDERED: Calcium Carbonate CHEW TAB* 500 MG (TUMS) PO PRN (01:01)
[2019-02-24] MEDS: Acetaminophen TAB* 325 MG PO PRN ×3 (02:31→20:49)
[2019-02-24] MEDS: traMADol TAB* 50 MG PO PRN ×3 (02:33→20:50)
[2019-02-24] MEDS: Baclofen TAB* 10 MG PO PRN ×3 (02:34→20:51)
[2019-02-24] MEDS: cefTRIAXone(*) 1 GM in NS 0.9% 50 ML* 50 ML IVPB SCH (08:47)
[2019-02-24] MEDS: DOXYcycline IV* 100 MG in NS 0.9% 250 ML* 250 ML IVPB SCH ×2 (10:15→20:55)
[2019-02-24] MEDS: Lidocaine PATCH 5%* 1 PATCH TRANSDERM SCH (10:16)
[2019-02-24] MEDS: Enoxaparin(*) 80 MG/0.8 ML SYR SUBCUT SCH ×2 (10:16→20:53)
[2019-02-24] MEDS: Lisinopril TAB* 10 MG PO SCH (10:17)
[2019-02-24] MEDS: Pregabalin CAP(*) 25 MG PO SCH ×4 (10:18→20:51)
[2019-02-24] MEDS: buPROPion SR TAB.SR* 100 MG PO SCH (10:19)
[2019-02-24] MEDS: Sertraline* 100 MG TAB PO SCH (10:19)
[2019-02-24] MEDS: OLANzapine TAB* 10 MG PO SCH (10:20)
[2019-02-24] MEDS: Pregabalin CAP(*) 50 MG PO SCH ×4 (10:20→20:50)
[2019-02-24] MEDS: Potassium Chlor TAB* 10 MEQ TAB.ER PO SCH ×2 (10:20→20:49)
[2019-02-24] MEDS: Metoprolol Tartrate TAB* 25 MG PO SCH ×2 (10:33→20:52)
--- NOTE | 2019-02-24 12:22 | ECHO ---
*[facility]* [place] [address] Fax #: [phone] Limited Transthoracic Echocardiogram Patient: Paris Beach : 1960 Study Date: 02/24/2019 Age: 58 Gender: F HR: 89 bpm Height: 62 in /157.5 cm BSA: 1.7 m^2 Weight: 151.7 lb /68.9 kg BMI: 27.8 kg/m^2 *Group Exercise Instructor: * Yocasta Guy RD *Referring Physician: * Ralph Mcleod *Reading Physician: * Donny Lloyd MD Indications: Congestive Heart Failure. History: PMH: Cardiomyopathy. Risk factors: Current tobacco use. Hypertension. Dyslipidemia. Conclusions Summary: - Limited follow up study for left ventricle function. - Left ventricle: Systolic function is mildly reduced. The estimated ejection fraction is 40-45%. Severe hypokinesis of the mid-apicalanteroseptal myocardium. Severe hypokinesis of the apicalanterior and anterolateral myocardium. - Compared to study of 02/21/19, the left ventricle funciton is slightly better. Wall motion abnormalities are the same. Study data: Transthoracic echocardiogram, limited study. Procedure: Transthoracic echocardiography was performed. Image quality was fair. Location: Bedside. Patient status: Inpatient. Patient room number: 447-01. Rhythm: Normal sinus rhythm. Findings Left ventricle: The cavity size is normal. Systolic function is mildly reduced. The estimated ejection fraction is 40-45%. Regional wall motion abnormalities: Severe hypokinesis of the mid-apicalanteroseptal myocardium. Severe hypokinesis of the apicalanterior and anterolateral myocardium. Right ventricle: Systolic function is normal. Pericardium: A prominent pericardial fat pad is present. There is no significant pericardial effusion. Prepared and electronically signed by Donny Lloyd MD 02/24/2019 12:22
--- NOTE | 2019-02-24 18:33 | PN ---
Subjective Date of Service: 02/24/19 Interval History: Reports chest pain more uncomfortable today.Lives alone.C/o SOB. Reports getting sob with min exertion.Lives alone.Hasnt worked with pt/ot yet Family History: Unchanged from Admission Social History: Unchanged from Admission Past Medical History: Unchanged from Admission Objective Active Medications: Acetaminophen (Tylenol Tab*) 650 mg PO Q4H PRN PRN Reason: MILD PAIN or TEMP > 100.4 Last Admin: 02/24/19 11:21 Dose: 650 mg Albuterol/Ipratropium (Duoneb (Albuterol 2.5 Mg/Ipratropium 0.5 Mg)) 1 neb INH Q4H PRN PRN Reason: SOB/WHEEZING Last Admin: 02/18/19 00:41 Dose: 1 neb Atorvastatin Calcium (Lipitor*) 80 mg PO 2100 [facility] Last Admin: 02/23/19 21:49 Dose: 80 mg Baclofen (Lioresal Tab*) 10 mg PO TID PRN PRN Reason: SPASMS Last Admin: 02/24/19 11:22 Dose: 10 mg Bupropion HCl (Wellbutrin Sr Tab*) 100 mg PO DAILY [facility] Last Admin: 02/24/19 10:19 Dose: 100 mg Calcium Carbonate (Tums*) 500 mg PO Q4H PRN PRN Reason: GERD Last Admin: 02/24/19 01:10 Dose: 500 mg Enoxaparin Sodium (Lovenox(*)) 70 mg SUBCUT Q12H [facility] Last Admin: 02/24/19 10:16 Dose: 70 mg Ceftriaxone Sodium 1 gm/ (Sodium Chloride) 50 mls @ 100 mls/hr IVPB Q24H [facility] Last Admin: 02/24/19 08:47 Dose: 100 mls/hr Doxycycline Hyclate 100 mg/ (Sodium Chloride) 250 mls @ 250 mls/hr IVPB Q12H [facility] Last Admin: 02/24/19 10:15 Dose: 250 mls/hr Lidocaine (Lidoderm 5% Patch*) 1 patch TRANSDERM DAILY [facility] Last Admin: 02/24/19 10:16 Dose: 1 patch Lisinopril (Prinivil Tab*) 10 mg PO DAILY [facility] Last Admin: 02/24/19 10:17 Dose: 10 mg Lorazepam (Ativan Tab(*)) 0.5 mg PO Q6H PRN PRN Reason: ANXIETY Last Admin: 02/20/19 20:36 Dose: 0.5 mg Metoprolol Tartrate (Lopressor Tab*) 12.5 mg PO Q12HR [facility] Last Admin: 02/24/19 10:33 Dose: Not Given Miscellaneous (Ativan Pyxis Jurado) 1 ea N/A .ATIVAN IV JURADO PRN PRN Reason: PYXIS JURADO Morphine Sulfate (Morphine Inj (Syringe))*) 2 mg IV Q3H PRN PRN Reason: PAIN - SEVERE Olanzapine (Zyprexa Tab*) 10 mg PO DAILY [facility] Last Admin: 02/24/19 10:20 Dose: 10 mg Pharmacy Profile Note (Lidocaine Patch Remove*) 1 note N/A 2100 [facility] Last Admin: 02/23/19 21:51 Dose: 1 note Potassium Chloride (Klor Con Er Tab*) 10 meq PO BID [facility] Last Admin: 02/24/19 10:20 Dose: 10 meq Pregabalin (Lyrica Cap(*)) 25 mg PO QID [facility] Last Admin: 02/24/19 18:27 Dose: 25 mg Pregabalin (Lyrica Cap(*)) 50 mg PO QID [facility] Last Admin: 02/24/19 18:27 Dose: 50 mg Sertraline HCl (Zoloft*) 200 mg PO DAILY [facility] Last Admin: 02/24/19 10:19 Dose: 200 mg Tramadol HCl (Ultram*) 50 mg PO QID PRN PRN Reason: PAIN - MODERATE Last Admin: 02/24/19 11:21 Dose: 50 mg Vital Signs - 8 hr 02/24/19 02/24/19 02/24/19 11:14 11:21 13:02 Temperature 97.6 F Pulse Rate 94 Respiratory 16 20 20 Rate Blood Pressure 115/85 (mmHg) O2 Sat by Pulse 97 Oximetry 02/24/19 02/24/19 02/24/19 13:03 13:08 15:43 Temperature Pulse Rate 78 Respiratory 20 20 16 Rate Blood Pressure 97/63 (mmHg) O2 Sat by Pulse 100 Oximetry 02/24/19 18:27 Temperature Pulse Rate Respiratory 16 Rate Blood Pressure (mmHg) O2 Sat by Pulse Oximetry Oxygen Devices in Use Now: None Eyes: No Scleral Icterus Ears/Nose/Mouth/Throat: NL Teeth, Lips, Gums Neck: NL Appearance and Movements; NL JVP Respiratory: Symmetrical Chest Expansion and Respiratory Effort, Clear to Auscultation Cardiovascular: NL Sounds; No Murmurs; No JVD Abdominal: NL Sounds; No Tenderness; No Distention Neurological: Alert and Oriented x 3 Result Diagrams: 02/21/19 05:11 02/19/19 05:59 Additional Lab and Data: Laboratory Tests 02/19/19 05:59 C-Reactive Protein 100.97 H Microbiology and Other Data: Microbiology 02/17/19 01:08 Urine Legionella Urinary Antigen - Final 02/17/19 01:08 Urine Streptococcus pneumoniae Ag Screen - Final Negative Legionella Antigen Negative S. pneumo Antigen 02/16/19 23:30 Nasal Nasal Screen MRSA (PCR) - Final Mrsa Not Detected 02/16/19 18:40 Urine Urine Culture - Final 02/17/19 05:28 Blood Venous Aerobic Blood Culture - Preliminary 02/17/19 05:28 Blood Venous Anaerobic Blood Culture - Preliminary No Growth Day 4 No Growth Day 4 02/17/19 05:28 Blood Venous Aerobic Blood Culture - Preliminary 02/17/19 05:28 Blood Venous Anaerobic Blood Culture - Preliminary No Growth Day 4 No Growth Day 4 EKG Data: Reviewed EKG, there are subtle ST elevations in I, aVL Assess/Plan/Problems-Billing Assessment: Mrs Beach is a 58 yo F with PMH of IBS, fibromyalgia, depression, HLD; who presented to ED with chest pain, elevated troponin, possible pericarditis, diagnosed w/ Takotsubo syndrome. - Patient Problems (1) Takotsubo cardiomyopathy Current Visit: Yes Status: Acute Code(s): I51.81 - TAKOTSUBO SYNDROME SNOMED Code(s): 383608936 Comment: - Presented with pleuritic chest pain with EKG changes. - Cardiac cath showed EF 15-20%, with no significant CAD. - CTA chest was negative for PE. - Impression is she probably has Takotsubo. Pericarditis/myocarditis on the differential, but ESR presentation was only 3 - continue colchicine and meloxican was discontinue in the setting of CHF. - Repeat echo today to assess EF recovery. -Cardiac cath with no sig CAD and felt with my Takotsubo cardiomyopathy\ -Initially considered for lifevest at EF 15-20% -However improvement on serial echo -Had echo again today and d/w Dr Lloyd.Improving EF -No need for life vest -Pt to f/u with Dr Thakur cardiology as outpt -Continue B khalida and HILARY (2) Pneumonia Current Visit: Yes Status: Suspected Priority: Medium Code(s): J18.9 - PNEUMONIA, UNSPECIFIED ORGANISM SNOMED Code(s): 431975706 Comment: - CXR shows bilateral infiltrates compatible with pneumonia. - Continue Ceftriaxone and Doxycycline -Continues to have chest wall and pleuritic pain -reports sob with min exertion today -Check nocturnal pulse ox tonight and pulse ox on ambulation (3) Acute diastolic (congestive) heart failure Current Visit: Yes Status: Ruled-out Priority: Medium Code(s): I50.31 - ACUTE DIASTOLIC (CONGESTIVE) HEART FAILURE SNOMED Code(s): 379857455 Comment: - She appears euvolemic at this time. - Her dyspnea may be to pneumonia plus CHF -Will monitor Status and Disposition: Inpatient. Echo improving.With CP and sob today.discussed going home with pt.she lives alone .had repeat echo. has not worked with pt/ot and prefers feeling a little better before going. Will get PT/Ot. Nocturnal pulse ox eval tonight and eval o2 needs.continue pcn treatment and can go home tomorrow if stable and f/u with cardiology as outpt, dr thakur. Already has interim discharge summary dictated by dr vernon
[2019-02-24] MEDS: Atorvastatin* 80 MG TAB PO SCH (20:49)
[2019-02-24] MEDS: Lidocaine Patch REMOVE* 1 NOTE MISC SCH (21:05)
[2019-02-25] MEDS: Acetaminophen TAB* 325 MG PO PRN ×3 (03:58→13:19)
[2019-02-25 06:57] LABS: ABS Basophils 0.1 10^3/ul (0-0.2); ABS Eosinophils 0.4 10^3/ul (0-0.6); ABS Lymphocytes 1.9 10^3/ul (1.0-4.8); ABS Neutrophils 6.9 10^3/ul (1.5-7.7); Eosinophil % 3.6 %; Hematocrit 34 % (35-47); Hemoglobin 11.7 g/dL (12.0-16.0); Mean Corpuscular HGB Conc 35 g/dL (31-36); Mean Corpuscular Hemoglobin 33 pg (27-31); Mean Corpuscular Volume 93 fL (80-97); Mean Platelet Volume 7.5 fL (7.4-10.4); Platelet Count 301 10^3/uL (150-450); Red Blood Count 3.61 10^6 /uL (3.70-4.87); Red Cell Distribution Width 13 % (10-15); White Blood Count 10.3 10^3/uL (3.5-10.8)
[2019-02-25 07:15] LABS: BUN/Creatinine Ratio 25.9 (8-20); Calcium 9.4 mg/dL (8.6-10.3); EGFR African American 87.6 (>60); EGFR Non-African American 72.4 (>60); Potassium 4.7 mmol/L (3.5-5.0)
[2019-02-25] MEDS: cefTRIAXone(*) 1 GM in NS 0.9% 50 ML* 50 ML IVPB SCH (08:57)
[2019-02-25] MEDS: Pregabalin CAP(*) 25 MG PO SCH ×2 (08:58→13:17)
[2019-02-25] MEDS: Lisinopril TAB* 10 MG PO SCH (09:00)
[2019-02-25] MEDS: Potassium Chlor TAB* 10 MEQ TAB.ER PO SCH (09:00)
[2019-02-25] MEDS: buPROPion SR TAB.SR* 100 MG PO SCH (09:00)
[2019-02-25] MEDS: Baclofen TAB* 10 MG PO PRN (09:05)
[2019-02-25] MEDS: Pregabalin CAP(*) 50 MG PO SCH ×2 (09:06→13:17)
[2019-02-25] MEDS: OLANzapine TAB* 10 MG PO SCH (09:06)
[2019-02-25] MEDS: Lidocaine PATCH 5%* 1 PATCH TRANSDERM SCH (09:07)
[2019-02-25] MEDS: Sertraline* 100 MG TAB PO SCH (09:07)
[2019-02-25] MEDS: Enoxaparin(*) 80 MG/0.8 ML SYR SUBCUT SCH (09:18)
[2019-02-25] MEDS: Metoprolol Tartrate TAB* 25 MG PO SCH (09:25)
[2019-02-25] MEDS: DOXYcycline IV* 100 MG in NS 0.9% 250 ML* 250 ML IVPB SCH (10:21)
[2019-02-25 12:00] VITALS: BP 134/57
[2019-02-25] MEDS: LORazepam TAB(*) 0.5 MG PO PRN (13:17)
--- NOTE | 2019-02-26 02:22 | DS ---
DISCHARGE SUMMARY: ADDENDUM: The discharge summary was initially read on 02/23/[address] Malick Mcleod, and the addendum will be as follows: DATE OF ADMISSION: 02/16/19 DATE OF DISCHARGE: 02/25/19 UPDATED HOME MEDICATION LIST: The patient was discharged on home medications noted below, except potassium supplement was discontinued given high normal serum potassiums during admission. UPDATED HOSPITAL COURSE: The patient's discharge was delayed 1 day given left groin pain. She reports that she felt like she pulled a muscle because she experienced it immediately upon flexing her left hip when getting out of bed. She declined x-ray. She had no swelling. She was able to bear weight and work with Physical Therapy. DISPOSITION: Home. CONDITION: Stable. See previously dictated discharge summary for complete hospital course, pertinent studies, and discharge plan. [id number]/CPS #: [id number] MTDD
== END 2019-02-25 15:00 | disposition home or self-care (01) | DRG 286 ==
LOC: ED 09:57 → MEDTELE 12:48 → ICU 22:58 → MEDTELE 02-17 09:16
PROVIDERS: ADMIT Internal Medicine; ATTEND Internal Medicine
PROC: B2111ZZ Fluoroscopy of Multiple Coronary Arteries using Low Osmolar Contrast (ICD-10-PCS; principal; 2019-02-17)
PROC: B2151ZZ Fluoroscopy of Left Heart using Low Osmolar Contrast (ICD-10-PCS; 2019-02-17)
PROC: 4A023N7 Measurement of Cardiac Sampling and Pressure, Left Heart, Percutaneous Approach (ICD-10-PCS; 2019-02-17)
DX: I51.81 Takotsubo syndrome (principal); J18.9 Pneumonia, unspecified organism; I50.31 Acute diastolic (congestive) heart failure; I31.9 Disease of pericardium, unspecified; M79.7 Fibromyalgia; E78.5 Hyperlipidemia, unspecified; R79.89 Other specified abnormal findings of blood chemistry; K58.0 Irritable bowel syndrome with diarrhea; R07.89 Other chest pain; D64.9 Anemia, unspecified; I95.9 Hypotension, unspecified; I08.0 Rheumatic disorders of both mitral and aortic valves; F32.9 Major depressive disorder, single episode, unspecified; Z98.1 Arthrodesis status; Z88.5 Allergy status to narcotic agent; Z91.048 Other nonmedicinal substance allergy status; Z80.6 Family history of leukemia; Z80.3 Family history of malignant neoplasm of breast; Z82.5 Family history of asthma and other chronic lower respiratory diseases; Z86.19 Personal history of other infectious and parasitic diseases
CPT/HCPCS: 36415; 71045; 71120; 71275; 76937; 80048; 80053; 80061; 81003; 81015; 82550; 82553; 82607; 82728; 83540; 83550; 83605; 83721; 83735; 83880; 84443; 84484; 85025; 85347; 85610; 85652; 85730; 86140; 87040; 87086; 87641; 87899; 93005; 93306; 93308; 93458; 94640; 94762; 99285; A9270-GY; C8929; G8978-GP-CJ; G8979-GP-CH; J0696; J1644; J1650; J1885; J1940; J2060; J2250; J2270; J2405; J3010; J3480; J3490; Q9967

== ENCOUNTER 2019-03-02 16:48 | Observation (INO) | payer MEDICARE, OTHER ==
[2019-03-02 17:32] LABS: ABS Basophils 0.1 10^3/ul (0-0.2); ABS Eosinophils 0.3 10^3/ul (0-0.6); ABS Lymphocytes 1.9 10^3/ul (1.0-4.8); ABS Monocytes 0.8 10^3/ul (0-0.8); ABS Neutrophils 6.8 10^3/ul (1.5-7.7); Eosinophil % 3.5 %; Hematocrit 26 % (35-47); Hemoglobin 8.9 g/dL (12.0-16.0); Mean Corpuscular HGB Conc 35 g/dL (31-36); Mean Corpuscular Hemoglobin 32 pg (27-31); Mean Corpuscular Volume 93 fL (80-97); Mean Platelet Volume 7.4 fL (7.4-10.4); Nucleated Red Blood Cells % 0.1; Platelet Count 330 10^3/uL (150-450); Red Blood Count 2.77 10^6 /uL (3.70-4.87); Red Cell Distribution Width 13 % (10-15); White Blood Count 9.9 10^3/uL (3.5-10.8)
[2019-03-02] MEDS ORDERED: Aspirin 81 mg CHEW TAB* 81 MG TAB.CHEW PO ONE (17:35)
[2019-03-02] MEDS ORDERED: Nitroglycerin TAB 0.4 MG* 0.4 MG TAB SL ONE (17:35)
[2019-03-02 17:39] LABS: INR 1.02 (0.82-1.09)
[2019-03-02 17:50] LABS: Albumin 3.9 g/dL (3.2-5.2); Albumin/Globulin Ratio 1.4 (1-3); BUN/Creatinine Ratio 25.3 (8-20); Calcium 9.1 mg/dL (8.6-10.3); EGFR African American 76.6 (>60); EGFR Non-African American 63.3 (>60); Globulin 2.7 g/dL (2-4); Potassium 4.1 mmol/L (3.5-5.0); Total Bilirubin 0.5 mg/dL (0.2-1.0); Total Protein 6.6 g/dL (6.4-8.9)
[2019-03-02 17:51] LABS: Troponin I 0.02 ng/mL (<0.04)
[2019-03-02 21:04] LABS: Troponin I 0.02 ng/mL (<0.04)
[2019-03-02] MEDS: Pregabalin CAP(*) 25 MG PO SCH (22:13)
[2019-03-02] MEDS: Acetaminophen TAB* 325 MG PO PRN (22:14)
[2019-03-02] MEDS: Hyoscyamine ER (NF) 0.375 MG TAB PO SCH (22:15)
[2019-03-02] MEDS: Metoprolol Tartrate TAB* 25 MG PO SCH (22:15)
[2019-03-02] MEDS: Atorvastatin* 80 MG TAB PO SCH (22:15)
[2019-03-02] MEDS: Lidocaine Patch REMOVE* 1 NOTE MISC PATCH OFF SCH (22:16)
[2019-03-02] MEDS: Enoxaparin(*) 40 MG/0.4 ML SYR SUBCUT SCH (22:22)
--- NOTE | 2019-03-02 22:25 | HP ---
CC: Dr. Cassandra Guzman; Dr. Yasmany Little * HISTORY AND PHYSICAL: DATE OF ADMISSION: 03/02/19 PRIMARY CARE PROVIDER: Cassandra Guzman MD AUTO CARRIER DRIVER: Yasmany Little DO ATTENDING PHYSICIAN: Donavan Lilly MD * (dictated by SHIV Hay). CHIEF COMPLAINT: 1. Chest pain. 2. Syncope. HISTORY OF PRESENT ILLNESS: Ms. Beach is a 58-year-old female with a past medical history of recent hospitalization for Takotsubo cardiomyopathy versus pericarditis, hyperlipidemia, depression who presented to the ER today with complaints of chest pain. It is important to note that the patient was recently admitted from 02/16/19 to 02/25/19 with the diagnosis of nonischemic cardiomyopathy. At that time, she presented with chest pain. She was noted to have an elevated troponin. She was taken for cardiac catheterization, which revealed severe left ventricular diastolic dysfunction in the absence of significant coronary artery disease raising question of possible Takotsubo syndrome. The patient's sed rate was not elevated at that time. She was started on lisinopril and metoprolol at that time. She was also started on atorvastatin 80 due to an LDL that was elevated to 178. The patient states that she stopped taking these medications due to hypotension. When we discussed her current blood pressure, she states that her blood pressure is fine and that she is not hypotensive but still discontinued these medications. The patient notes that she drove 1.5 hours to and from her friend's house yesterday. She had been having chest pain during that time. She assumed that this was musculoskeletal from her injury at the left chest wall that occurred approximately 2 weeks ago after a fall, so she ignored it. The pain was continuous and worsened today after she went to [facility]. She notes that the pain worsened after she was raising her hands, moving, and singing. Again, the pain is mid sternal. There is no radiation to the left arm or jaw, although the patient notes that it radiates to the left lateral rib area where her musculoskeletal rib injury is. The pain does not change with deep breathing but is tender to palpation. The patient also notes 2 episodes of syncope in the last 3 days. She denies injury to the head. She notes that these occur shortly after standing. She does not remember a prodrome of dizziness or lightheadedness prior to syncopal event but does note that she has had dizziness and lightheadedness with standing recently. She also complains of headache and left flank pain, which is new and different in nature from the left chest wall pain. The patient denies vision changes, shortness of breath, cough, fever, chills, although she notes that she felt hot earlier today. She denies abdominal pain, nausea, vomiting, diarrhea, constipation. She does have a history of fibromyalgia and denies new arthralgias, myalgias, or weakness in the extremities. She denies hematochezia and melena. In the ER, the patient received a full workup. She was noted to have a normocytic anemia that has worsened from her last visit. She has a mildly elevated BNP and a troponin of 0.02 x1. She was given aspirin 324 mg and nitro 0.4 sublingual. EKG was obtained and revealed T-wave inversions in leads II and V3 through V6. Chest x-ray showed no evidence of cardiopulmonary disease. The hospitalist team was asked to evaluate the patient for admission. PAST MEDICAL HISTORY: 1. Hyperlipidemia. 2. History of nonischemic cardiomyopathy. 3. IBS with diarrhea. 4. Fibromyalgia. 5. Depression. PAST SURGICAL HISTORY: Cervical fusion 2001, x2, D and C. HOME MEDICATIONS: 1. Acetaminophen 650 mg p.o. q.4 hours p.r.n. pain. 2. Baclofen 10 mg p.o. t.i.d. p.r.n. spasms. 3. Bupropion 100 mg p.o. daily. 4. Hyoscyamine 0.375 mg p.o. b.i.d. 5. Lidocaine patch 5% one patch transdermally daily. 6. Meloxicam 7.5 mg p.o. b.i.d. 7. Pregabalin 75 mg p.o. 4 times a day. 8. Sertraline 200 mg p.o. daily. 9. Tramadol 50 mg p.o. 4 times a day p.r.n. pain. 10. Atorvastatin 80 mg p.o. daily. The patient has not been taking this medication. 11. Lisinopril 10 mg p.o. daily. The patient has not been taking this medication. 12. Metoprolol 12.5 mg p.o. b.i.d. The patient has not been taking this medication. DRUG ALLERGIES: CODEINE, HYDROCODONE, OXYCODONE, DAY WOOL. SOCIAL HISTORY: The patient is disabled. She is . She lives home alone. She has 2 living children. She notes that her daughter was murdered November 2018 and she recently attended her approximately 3 weeks ago. In the event that she is unable to make her own medical decision, she is appointed her brother Kevan Oneal to be her surrogate decision maker. REVIEW OF SYSTEMS: A 14-point review of systems has been performed and all the pertinent positives and negatives are in the HPI. All other systems are negative. PHYSICAL EXAMINATION GENERAL: Ms. Beach is a well-developed, well-nourished, overweight, middle- aged white woman, who is sitting up in bed. She appears very mildly anxious but in no acute distress. She is pleasant and cooperative, talkative. VITAL SIGNS: Temperature 98.3 temporal, heart rate 84, respiratory rate 17, oxygen saturation 96% on room air, blood pressure 132/82. HEENT: Visual skinner are grossly intact. PERRL, EOMI, nonicteric sclerae. Hearing grossly intact. Oral mucous membranes are moist. There are no lesions. The pharynx is clear. The tongue is at midline. The palate elevates symmetrically. Face is symmetrical. NECK: Trachea is at midline without cervical lymphadenopathy. Thyroid not palpable. RESPIRATORY: Symmetrical chest expansion without use of accessory muscles. Lungs clear to auscultation bilaterally without rhonchi, wheezes, or rubs. CARDIOVASCULAR: Regular rate and rhythm with S1, S2 present without murmurs, rubs, clicks or gallops. There is no JVD. There is trace bilateral lower extremity nonpitting edema. The mid sternal area is tender to palpation as is the left lateral chest wall. ABDOMEN: Bowel sounds noted in all quadrants. The abdomen is soft. There is mild right upper quadrant and left upper quadrant tenderness to palpation. No suprapubic tenderness. No CVA tenderness. MUSCULOSKELETAL: Full range of motion without pain or deformities. Strength is equal bilaterally in upper and lower extremities. NEUROLOGIC: The patient is awake. She is alert and oriented x3 with cranial nerves grossly intact. Muscle strength 5/5 in bilateral upper and lower extremities, symmetrical distributor cleaner strength. DIAGNOSTIC STUDIES/LABORATORY DATA: 1. Hgb 8.9, HCT 26, MCV 93. Troponin 0.02. BNP 147. 2. Chest x-ray, impression: No evidence for active cardiopulmonary disease. 3. EKG: T-wave inversion in leads I, II, V3, V4, V5, V6. No ST elevation. ASSESSMENT AND PLAN: Ms. Beach is a 58-year-old female with a past medical history of hyperlipidemia; nonischemic cardiomyopathy, possibly Takotsubo cardiomyopathy, diagnosed end of January, who presented to the ER with complaints of mid sternal chest pain with noted T-wave inversions on EKG, negative troponin x1 as well as syncopal episodes x2. The patient will be admitted observation for: 1. Chest pain. The patient will be admitted to telemetry. Her recent echo done in January revealed an ejection fraction of 40% to 45%. She had a cardiac catheterization performed on 02/17/19 that revealed severe left ventricular diastolic dysfunction in the absence of significant coronary artery disease. Today's EKG showed T-wave inversions in leads II, V3 to V6 which are new or worsened form the patient's previous EKG. It is noted that the patient' s chest pain is reproducible. Her troponins were negative x1. We will order a Cardiology consult. Meanwhile, we will continue to trend her troponins. The patient notes that she discontinued her atorvastatin, lisinopril, and metoprolol. We will restart metoprolol and atorvastatin. We will continue aspirin. Her lisinopril will be held until blood pressure has been trended. 2. Syncope. The patient admits to approximately 2 syncopal episodes in the last 3 days where there was no head injury. She is unable to remember if she experienced a prodrome prior to syncopal episode but notes that all of these episodes were witnessed and there was no head injury. She will be admitted to telemetry. Orthostatics will be obtained. The patient is noted to be more anemic than she was at prior admission. She denies melena, hematochezia, hematemesis. Stool for occult blood will be ordered. 3. Hyperlipidemia. Continue atorvastatin. 4. DVT prophylaxis. According to DVT risk assessment, the patient scores 2 placing her at moderate risk. She will be started on Lovenox. 5. Code status: Full code. TIME SPENT: Approximately 60 minutes was spent on this admission, greater than half that time was spent [id number] with the patient obtaining history, performing a physical, and reviewing the plan of care. The case has been reviewed with my attending, Dr. Lilly, who is in agreement with the plan of care. SHIV FLOWERS [id number]/CPS #: [id number] KIERSTEN
[2019-03-02] MEDS: Baclofen TAB* 10 MG PO PRN (22:50)
[2019-03-03 00:07] LABS: Troponin I 0.02 ng/mL (<0.04)
[2019-03-03 07:45] LABS: Urine Appearance Clear; Urine Bilirubin Negative (Negative); Urine Blood Negative (Negative); Urine Color Straw; Urine Glucose Negative (Negative); Urine Ketones Negative (Negative); Urine Nitrite Negative (Negative); Urine Protein Negative (Negative); Urine Specific Gravity 1.005 (1.010-1.030); Urine Urobilinogen Negative (Negative)
[2019-03-03] MEDS: Aspirin 81 mg CHEW TAB* 81 MG TAB.CHEW PO SCH (08:27)
[2019-03-03] MEDS: Sertraline* 100 MG TAB PO SCH (08:27)
[2019-03-03] MEDS: Pregabalin CAP(*) 25 MG PO SCH ×4 (08:27→20:46)
[2019-03-03] MEDS: Lidocaine PATCH 5%* 1 PATCH TRANSDERM SCH (08:28)
[2019-03-03] MEDS: Metoprolol Tartrate TAB* 25 MG PO SCH (08:29)
[2019-03-03] MEDS: Hyoscyamine ER (NF) 0.375 MG TAB PO SCH ×2 (08:30→20:46)
[2019-03-03 10:13] LABS: CKMB ng/mL 3.7 ng/mL (0.6-6.3)
[2019-03-03 10:16] LABS: CKMB ng/mL 3.4 ng/mL (0.6-6.3)
[2019-03-03 10:20] LABS: CKMB ng/mL 3.1 ng/mL (0.6-6.3)
[2019-03-03] MEDS: BuPROPion XL* 150 MG TAB.XL PO SCH (11:05)
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
[2019-03-03] MEDS ORDERED: Iohexol 350* (CONTRAST) 500 ML MDV IV ONE (12:46)
--- NOTE | 2019-03-03 13:16 | ECHO ---
*[facility]* [place] [address] Fax #: [phone] Transthoracic Echocardiogram Patient: Paris Beach : 1960 Study Date: 03/03/2019 Age: 58 Gender: F HR: 68 bpm Height: 62 in /157.5 cm BSA: 1.74 m^2 Weight: 159.7 lb /72.6 kg BMI: 29.3 kg/m^2 *Sales Contracts Analyst: * Yocasta Guy RD *Referring Physician: * Donny Lloyd MD *Reading Physician: * Donny Lloyd MD Indications: Abnormal EKG. History: PMH: Cardiomyopathy. Non-ischemic. Risk factors: Dyslipidemia. Conclusions Summary: - Left ventricle: Systolic function is mildly reduced. The estimated ejection fraction is 45-50%. Mild diffuse hypokinesis. Hypokinesis of the apicalinferoseptal myocardium. - Mitral valve: There is mild regurgitation. - Aortic valve: There is no evidence of stenosis. There is trace to mild regurgitation. - Tricuspid valve: There is trace regurgitation. - Pericardium, extracardiac: There is no significant pericardial effusion. - Pulmonary arteries: Systolic pressure is within the normal range. - Compared to study of 02/24/19, there is little change. Study data: Transthoracic echocardiogram. Procedure: Transthoracic echocardiography was performed. Image quality was fair. The study was technically limited due to Lidocaine patch in apical view location. Complete 2D, spectral Doppler, and color flow Doppler. Location: Bedside. Patient status: Inpatient. Patient room number: 434. Rhythm: Normal sinus rhythm. Findings Left ventricle: The cavity size is normal. Wall thickness is mildly increased. Systolic function is mildly reduced. The estimated ejection fraction is 45-50%. Mild diffuse hypokinesis. Regional wall motion abnormalities: Hypokinesis of the apicalinferoseptal myocardium. Hypokinesis of the apicalinferolateral myocardium. There is no consistent Doppler evidence of clinically significant diastolic dysfunction. Right ventricle: The cavity size is mildly dilated. Systolic function is normal. Systolic pressure is within the normal range. Left atrium: The atrium is normal in size. Right atrium: The atrium is normal in size. Mitral valve: The leaflets are mildly thickened. There is no evidence of stenosis. There is mild regurgitation. Aortic valve: The leaflets are mildly thickened. There is no evidence of stenosis. There is trace to mild regurgitation. Tricuspid valve: The leaflets are normal thickness. There is no evidence of stenosis. There is trace regurgitation. Pulmonic valve: The leaflets are normal thickness. There is no evidence of stenosis. There is trace regurgitation. Aorta: Aortic root: The aortic root is appears normal. Ascending aorta: The ascending aorta is appears normal. Aortic arch: The aortic arch is poorly visualized. Pericardium: A prominent pericardial fat pad is present. There is no significant pericardial effusion. Pulmonary arteries: The main pulmonary artery is normal-sized. Systolic pressure is within the normal range. Systemic veins: Inferior vena cava: The vessel is normal in size. There is (>= 50%) respiratory change in the IVC dimension. Measurements Left ventricle Value Ref Aortic valve Value Ref JAMEEL, LAX 4.6 cm 3.8 - 5.2 Naresh diam, ED 2.0 cm ----- ESD, LAX 3.5 cm 2.2 - 3.5 Peak v, S 1.31 m/sec ----- FS, LAX (L) 25 % 27 - 45 VTI, S 26.5 cm ----- PW, ED, LAX (H) 1.1 cm 0.6 - 0.9 Mean grad, S 4.0 mm Hg ----- FS (L) 25 % 27 - 45 Peak grad, S 7.0 mm Hg ----- PW, ED (H) 1.1 cm 0.6 - 0.9 LVOT/AV, VTI ratio 0.72 ----- PW/ID, ED 0.23 E', lat naresh, TDI (L) 7.6 cm/sec >=10.0 Mitral valve Value Ref E/e', lat naresh, 8 Peak E 0.58 m/sec ----- TDI Peak A 0.53 m/sec ----- E', med naresh, TDI 10.9 cm/sec >=7.0 Decel time 285 ms --- -- E/e', med naresh, 5 Peak E/A ratio 1.1 ----- TDI E', avg, TDI 9.3 cm/sec Pulmonic valve Value Ref E/e', avg, TDI 6 <=14 Peak v, S 0.94 m/sec --- -- Peak grad, S 4.0 mm Hg ----- LVOT Value Ref Peak pauline, S 1.09 m/sec Tricuspid valve Value Ref VTI, S 19.0 cm TR peak v 1.9 m/sec <=2.8 Mean grad, S 3 mm Hg Peak RV-RA grad, S 14 mm Hg ----- Ventricular septum Value Ref Aortic root Value Ref IVS, ED (H) 1.1 cm 0.6 - 0.9 Root diam 3.3 cm <3.9 Right ventricle Value Ref Ascending aorta Value Ref JAMEEL, LAX 2.5 cm AAo AP diam, S 3.2 cm ----- JAMEEL minor ax, A4C (H) 3.7 cm 1.9 - 3.5 mid Decending aorta Value Ref Pressure, S 17 mm Hg Mary peak pauline 0.73 m/sec ----- Left atrium Value Ref Pulmonary artery Value Ref AP dim, ES 3.50 cm 2.70 - Pressure, S 13.0 mm Hg ----- 3.80 ML dim, A4C 3.4 cm Inferior vena cava Value Ref SI dim, A4C 5.0 cm Diam 1.2 cm ----- Vol/bsa, ES, 1-p 20 ml/m^2 11 - 40 A4C Vol/bsa, ES, A/L 24 ml/m^2 16 - 34 Right atrium Value Ref SI dim, ES 4.6 cm 3.4 - 5.3 ML dim, ES, A4C 3.9 cm 2.6 - 4.4 SI dim, ES, A4C 4.6 cm 3.4 - 5.3 Estimated RAP 3 mm Hg Legend: (L) and (H) maxwell values outside specified reference range. Prepared and electronically signed by Donny Lloyd MD 03/03/2019 13:16
[2019-03-03] MEDS ORDERED: Iodixanol* (CONTRAST) 320 MG/ML 100 ML SDV IV ONE (14:14)
--- NOTE | 2019-03-03 15:49 | CONS ---
CC: Dr. Guzman; Dr. Yasmany Little * CONSULTATION REPORT: DATE OF CONSULT: 03/03/19 ATTENDING PHYSICIAN: Dr. Donny Lloyd, Cardiology.* (DICTATED BY FRED HOLLINGSWORTH NP) PRIMARY PHYSICIAN: Dr. Guzman. PRIMARY PHOTOGRAPHIC EQUIPMENT ASSEMBLER: Dr. Yasmany Little. REASON FOR CONSULTATION: Chest pain. HISTORY OF PRESENT ILLNESS: This is a 58-year-old female patient who was recently admitted and treated for Takotsubo cardiomyopathy/possible pericarditis and myocarditis on 02/24/19. The patient was seen in consultation by Dr. Yasmany Little at the time and underwent cardiac catheterization on . Per report, there was new obstructive coronary artery disease. She had an elevated LVEDP. She was treated with diuretics, was started on colchicine; however, there was no improvement of chest pain with colchicine, thus it was discontinued. She had a repeat echocardiogram on 02/23/19 prior to discharge. Per report, LVEF was 40% to 45% with severe hypokinesis of the mid apical anteroseptal myocardium and severe hypokinesis of the apical anterior and anterolateral myocardium. According to the patient, she was not sent home on metoprolol or lisinopril therapy due to hypotension. Apparently, she was discharged to her friend's house, who she has been residing with. She states for the past week she has actually been feeling better. She has had mild dyspnea on exertion, but no chest pain. According to the patient, this past 02/28/19 while with the visiting nurse at her home, she apparently stood up and was getting ready to ambulate with a walker, apparently she took the breaks off and according to the patient she started to fall towards her right. She was able to correct herself, but thinks that she overcorrected and therefore fell on her left shoulder. According to the patient, she was told by the visiting nurse who was present at that time that she was unresponsive for 5 minutes. She states that she did not hit her head and she is not aware of being unresponsive. On Sunday morning, she had increased lethargy and according to the patient, her friend had difficulty waking her up. Apparently, she felt confused. When she would talk, she states that she noticed that she was using the wrong words, she adds that she had dropped her medications 3 times and felt very off balance. Apparently, at that time, she was having chest pressure with inspiration; however, it did eventually go away and she was able to travel to [place] to pick her friend. Yesterday, she went to [facility] from [facility]:30 to noon. Towards the end of [employer] around the 11:45 noon, she started to develop recurrent chest pressure that apparently was then constant and ongoing. After lunch, she took her blood pressure at home and it was 114/68 and her heart rate was 95. She states that she contacted visiting nurse association again, who then directed her to go to the emergency department. She states that the pain has been constant and ongoing since then. She denies syncope, denies palpitations, sensation of heart racing, fever, although she adds that she thought she had a fever yesterday because she felt that her face was flushed and that she was hot. She otherwise offers no other complaints at this time. While being evaluated in the emergency department, ECG was updated and revealed new anterolateral biphasic T-wave changes compared to prior ECG, thus we were asked to see the patient in consultation. Cardiac enzymes were cycled and have remained negative at 0.02 since presentation. I did take the liberty of updating CK-MB, which was normal x3 as was total CK. When the patient was admitted on 02/16/19, her troponin peaked at 5.8 and her CK-MB peaked at 49 on 02/16/19. Last echocardiogram according to our medical records 02/23/19, per report, LVEF 40% and 45% with severe hypokinesis of the mid apical and anteroseptal myocardium, severe hypokinesis of the apical, anterior, and anterolateral myocardium. Last ischemic evaluation via left heart catheterization 02/17/19, per report, left main patent. LAD mild luminal irregularities in the proximal portion with 20% to 25% stenosis noted, 25% to 30% mid LAD stenosis noted. There was very distal muscle bridge noted with systolic milking. Left circumflex nondominant vessel, ostium at 60% stenosis. Right coronary artery dominant vessel supplying the PDA and posterior ventricular left ventricular branch. LVEF on LV gram was 15% to 20%. PAST MEDICAL HISTORY: 1. Systolic heart failure. 2. Takotsubo cardiomyopathy. 3. Fibromyalgia. 4. Depression. 5. IBS and diarrhea. 6. Suspected pericarditis. 7. Suspected pneumonia. PAST SURGICAL HISTORY: Includes: 1. Cervical fusion in 2001. 2. x2. 3. D and C. HOME MEDICATIONS: Per admission medication reconciliation: 1. Bupropion 150 mg a day. 2. Lidocaine 1 patch transdermal daily. 3. Levbid 0.375 mg p.o. b.i.d. 4. Baclofen 10 mg p.o. t.i.d. p.r.n. 5. Tylenol 650 mg p.o. q.4 h. p.r.n. 6. Meloxicam 7.5 mg p.o. b.i.d. 7. Sertraline 200 mg p.o. daily. 8. Lyrica 75 mg 4 times a day. 9. Ultram 50 mg p.o. 4 times a day p.r.n. ALLERGIES: Listed includes CODEINE, OXYCODONE, HYDROCODONE, and WOOL. FAMILY HISTORY: Father from myocardial infarction. Mother from PID. SOCIAL HISTORY: The patient is . Prior to recent admission, lived home alone. She reports prior occasional marijuana use although adds she has not used marijuana since she was discharged 02/25/19. Denies alcohol use, tobacco use. She is disabled. REVIEW OF SYSTEMS: All systems have been reviewed and otherwise is negative except as above mentioned in the HPI. PHYSICAL EXAMINATION: Temperature 98.2, pulse 69, respirations 18, oxygenation 99% on room air, blood pressure 96/58. General: The patient is sitting in chair, appears in no apparent distress, is cooperative with examination. Alert and oriented x3. HEENT: Head is atraumatic, normocephalic. Oral mucosa is moist. Tongue is midline. Neck: Supple. Trachea midline. No JVD. No carotid bruits. Cardiac: Normal S1, S2. Regular rate and rhythm. No murmur, rub or gallop noted. Lungs: Auscultated posteriorly. No evidence of adventitious breath sounds. Respirations nonlabored. /GI: Abdomen is soft, nontender. Normoactive bowel sounds x4. No hepatomegaly. Extremities: No pedal edema. No clubbing, no cyanosis. Peripheral vascular: 2+ brachial pulses palpated bilaterally and symmetrically. 2+ dorsalis pedis pulse palpated bilaterally and symmetrically. DIAGNOSTIC STUDIES/LAB DATA: Blood work obtained on 03/02/19: Sodium 134, potassium 4.1, carbon dioxide 23, BUN 23, creatinine 0.91, glucose 92. Troponin negative x3, CK-MB negative x3, total CK 110. INR 1.02. ECG obtained 03/03/19, sinus rhythm, rate 70 with diffuse T-wave inversion noted most notably V1 through V6. Chest x-ray 03/02/19. Per report; no evidence of active cardiopulmonary disease. ASSESSMENT AND PLAN: 1. A 23-hour period of constant chest pressure in the setting with new diffuse T- wave depression; pain appears to be atypical, was worse with inspiration, now the patient states it is constant with no provoking or alleviating factors. Troponins negative x3. CK-MB is normal x3 as is total CK. She was recently admitted 02/16/19, for Takotsubo cardiomyopathy, LVEF 40% to 45% with possible pericarditis. During that admission, her troponin peaked at 5.8 and CK-MB at 49. She did not have relief of symptoms with colchicine, thus it was discontinued. The pain had resolved, although it recurred starting Sunday. Given new ECG changes, we will update echocardiogram. She just had a left heart catheterization that did not reveal obstructive coronary artery disease. We will follow. 2. Complaints of increased falls with possible loss of consciousness on . Updated primary team. Consider neurology evaluation. Total CK was normal. 3. Systolic heart failure, LVEF 40% to 45%, 02/23/19. According to the patient , Lopressor and lisinopril were discontinued prior to discharge on 02/25/19 due to hypotension. The patient was started on Lopressor 12.5 mg p.o. b.i.d., current blood pressure is 96/58. We would hold beta-blockade therapy due to hypotension especially in the setting of increased recent falls. Consider adding lisinopril 2.5 mg p.o. q.h.s. if blood pressure allows. The patient is compensated on physical examination. We will update echocardiogram. 4. History of hyperlipidemia, on high-density statin therapy. 5. Disposition. Pending course. Dr. Donny Lloyd has personally seen and examined the patient and agrees with the above assessment and plan. We will update echocardiogram and follow closely. FRED HOLLINGSWORTH, CONSTRUCTION DRIVER [id number]/[facility] #: [id number] [facility] HEALTHJustino
[2019-03-03] MEDS: Baclofen TAB* 10 MG PO PRN (17:49)
[2019-03-03] MEDS: Acetaminophen TAB* 325 MG PO PRN (17:49)
--- NOTE | 2019-03-03 20:39 | CONS ---
CONSULTATION REPORT: DATE OF CONSULT: 03/03/19 PATIENT OF: Dr. Rodriguez. HISTORY OF PRESENT ILLNESS: This is a 58-year-old right-handed woman I am asked to evaluate for falling episodes and speech problems. She was recently discharged from the hospital following takotsubo cardiomyopathy following the murder of her daughter this summer. She has had suspected pericarditis, suspected pneumonia, fibromyalgia, hyperlipidemia, depression, elevated troponin , and irritable bowel syndrome with diarrhea. She notes that since she has been home, she has been tremulous and slightly globally weak and has used a walker because of that. On Sunday, she had no loss of consciousness, but tipped over from the combination of being off balance and lightheaded. This was witnessed by 2 different people and there was no shaking and she remembers falling down. She has also been somewhat confused with some word-finding difficulty on Sunday and Sunday. This happened both days in the morning. She had no focal weakness with this. There have been some minor nonspecific headaches at times. She has had no vertigo. She has had chest pain that has also brought her in. PAST MEDICAL HISTORY: She has a past history of hyperlipidemia, nonischemic cardiomyopathy, irritable bowel syndrome, fibromyalgia, and depression. PAST SURGICAL HISTORY: She is status post cervical fusion in 2001, x2 , and a D and C. MEDICATIONS: She was discharged no more than a week ago on: 1. Baclofen 10 mg t.i.d. 2. Wellbutrin SR 100 mg daily. 3. Hyoscyamine ER 0.275 b.i.d. p.r.n. for diarrhea. 4. Meloxicam 7.5 b.i.d. 5. Olanzapine 10 mg daily. 6. Lyrica 75 four times a day. 7. Sertraline 200 mg daily. 8. Tramadol 50 mg p.o. 4 times a day p.r.n. 9. Atorvastatin 80 mg at bedtime. 10. Lisinopril 10 mg daily. 11. Metoprolol 12.5 mg b.i.d. 12. Potassium chloride 10 mEq b.i.d. ALLERGIES: She is allergic to CODEINE, HYDROCODONE, OXYCODONE, and cisneros's wool. SOCIAL HISTORY: She is disabled and . She lives by herself and has 2 living children, with her daughter murdered in November 2018. REVIEW OF SYSTEMS: Negative in all 14 spheres, other than in the HPI. PHYSICAL EXAMINATION: On exam, her blood pressure has often been low; currently 102/59, pulse of 66, temperature is 97.5, respirations 20. She is alert and oriented with normal speech and comprehension. Cranial nerves II through XII are intact. Fundi were benign. Motor exam revealed normal tone and strength. Negative pronator drift. When she got up, she had a slight limp, she said, due to pain in her right leg. She became lightheaded shortly after getting up out of bed and we brought her back to bed, and she felt better when she lied down. After she got lightheaded, she was slightly unsteady. Reflexes were 1 and equal, other than trace ankle jerks. She had stocking vibratory loss. Strength is 5/5 throughout. [id number] is intact. Chest: Clear. Cardiovascular: Regular rate and rhythm. Abdomen is soft with positive bowel sounds. DIAGNOSTIC STUDIES/LAB DATA: Her CTA was normal and she had a negative CT associated with it, other than some small-vessel ischemic disease. Her labs include normal CMP, other than the sodium of 134. BNP of 147. Normal CPK. UA was negative. INR was normal. CBC was significant for hematocrit of 26, white count of 9.9, MCV was 93. Her B12 was 400, folate was 20,000. Iron studies were normal, other than transferrin which was mildly low in the end of January. TSH was normal. IMPRESSION AND PLAN: We are obtaining an MRI scan to make sure that her word- finding difficulties were not small strokes happening. We will also ascertain the extent of her white matter disease, and at this point, we will continue her treatment with her Lipitor, but do not think that we likely need to further change her care for ischemic disease. My main concern is that she is having orthostatic changes and has gotten lightheaded upon arising, and I would modify her blood pressure medicine to decrease the chances of orthostatic blood pressure changes as well as would like to treat her heart disease and would defer to the hospitalist for that. She has had significant medications such as Wellbutrin, Zoloft, Lyrica, and some of this it is possible if it is simplified may make her less confused. She is obese and it is possible that she has sleep apnea and her symptoms consistent with this diagnosis. She has interrupted sleep due to the snoring, but she does not want to pursue this now and this is something that if she changes her mind, this can be dealt with as an outpatient. She realizes that it could contribute to both her heart disease and possible brain disease. I will continue the aspirin for now and I will be back to see her as an outpatient. I think part of her unsteadiness is due to her peripheral neuropathy and I may not be able to find a cause. It would be reasonable to check a hemoglobin A1c to see if she has metabolic syndrome. Thank you for sharing her case. [id number]/[facility] #: [id number] KIERSTEN
[2019-03-03] MEDS: Enoxaparin(*) 40 MG/0.4 ML SYR SUBCUT SCH (20:46)
[2019-03-03] MEDS: Atorvastatin* 80 MG TAB PO SCH (20:46)
[2019-03-03] MEDS: Lidocaine Patch REMOVE* 1 NOTE MISC PATCH OFF SCH (20:46)
[2019-03-04 05:52] LABS: ABS Basophils 0.1 10^3/ul (0-0.2); ABS Eosinophils 0.3 10^3/ul (0-0.6); ABS Lymphocytes 1.9 10^3/ul (1.0-4.8); ABS Monocytes 0.7 10^3/ul (0-0.8); ABS Neutrophils 5.3 10^3/ul (1.5-7.7); Eosinophil % 3.8 %; Hematocrit 29 % (35-47); Lymphocyte % 22.9 %; Mean Corpuscular HGB Conc 34 g/dL (31-36); Mean Corpuscular Hemoglobin 32 pg (27-31); Mean Corpuscular Volume 93 fL (80-97); Mean Platelet Volume 7.7 fL (7.4-10.4); Nucleated Red Blood Cells % 0.2; Platelet Count 348 10^3/uL (150-450); Red Blood Count 3.14 10^6 /uL (3.70-4.87); Red Cell Distribution Width 13 % (10-15); White Blood Count 8.3 10^3/uL (3.5-10.8)
[2019-03-04] MEDS: BuPROPion XL* 150 MG TAB.XL PO SCH (09:15)
[2019-03-04] MEDS: Acetaminophen TAB* 325 MG PO PRN (09:15)
[2019-03-04] MEDS: Aspirin 81 mg CHEW TAB* 81 MG TAB.CHEW PO SCH (09:15)
[2019-03-04] MEDS: Lidocaine PATCH 5%* 1 PATCH TRANSDERM SCH (09:16)
[2019-03-04] MEDS: Sertraline* 100 MG TAB PO SCH (09:16)
[2019-03-04] MEDS: Hyoscyamine ER (NF) 0.375 MG TAB PO SCH (09:18)
[2019-03-04] MEDS: Pregabalin CAP(*) 25 MG PO SCH ×2 (11:14→15:50)
[2019-03-04 12:27] VITALS: BP 132/70
--- NOTE | 2019-03-05 03:00 | DS ---
CC: Cassandra Guzman MD; Yasmany Little DO; Hardik Barnhart MD * DISCHARGE SUMMARY: DATE OF ADMISSION: 03/02/19 DATE OF DISCHARGE: 03/04/19 PRIMARY CARE PROVIDER: Cassandra Guzman MD. OTHER PROVIDERS: Yasmany Little DO, and Hardik Barnhart MD. ATTENDING PHYSICIAN: Bonnie Capone MD * (dictated by SHIV Hay). PRIMARY DIAGNOSES: 1. Atypical chest pain, musculoskeletal in nature. 2. Gait abnormality. 3. Syncope. 4. Anemia. 5. Hyperlipidemia. SECONDARY DIAGNOSES: 1. Nonischemic cardiomyopathy. 2. Hyperlipidemia. 3. Irritable bowel syndrome with diarrhea. 4. Fibromyalgia. 5. Depression. STUDIES WHILE IN THE HOSPITAL: 1. Transthoracic echocardiogram, impression: LV systolic function mildly reduced, EF of 45% to 50%, mild diffuse hypokinesis, mild MV regurg, trace to mild AR, trace TR, no significant pericardial effusion; pulmonary artery systolic pressure within normal range. 2. Brain MRI, impression: There are multiple foci of elevated T2/FLAIR signal within the periventricular and subcortical white matter. While these findings are nonspecific, they can be seen in association with migraine headache as the sequela of previous infection or inflammation and chronic small-vessel ischemia. Demyelinating disease is also within the differential, but is considered less likely in the absence of the appropriate clinical presentation. Small left mastoid effusion. 3. CTA head and neck, impression: No acute intracranial abnormality by CT. Mild chronic small-vessel scattered disease is likely. No acute occlusive disease or aneurysm in the head. No acute occlusive disease in the neck. DISCHARGE MEDICATIONS: Home Medications: 1. Acetaminophen 650 mg p.o. q.4 hours p.r.n. for pain. 2. Baclofen 10 mg p.o. t.i.d. p.r.n. for spasm. 3. Bupropion XL 150 mg p.o. daily. 4. Hyoscyamine ER 0.375 mg p.o. b.i.d. 5. Lidocaine patch 5% one patch transdermally daily. 6. Meloxicam 7.5 mg p.o. b.i.d. 7. Pregabalin 75 mg p.o. 4 times a day. 8. Sertraline 200 mg p.o. daily. 9. Tramadol 50 mg p.o. 4 times a day p.r.n. for pain. [place] Medication: 1. Atorvastatin 80 mg p.o. at bedtime. Discontinued Home Medications: 1. Lisinopril. 2. Metoprolol. HISTORY OF PRESENT ILLNESS/HOSPITAL COURSE: Ms. Beach is a 58-year-old female with a past medical history of recent hospitalization for takotsubo cardiomyopathy in January 2019, hyperlipidemia, and depression who presented to the ER on 03/02/19 with complaints of chest pain, syncope, and gait disturbance. For full and complete details, please see the history and physical dictated by SHIV Hay, but in short, the patient presents with these symptoms and is admitted for further workup. Her EKG on admission did show some T-wave inversion in leads II, V3 to V6. The patient was placed on telemetry. Troponins were trended and were negative x3. Cardiology was consulted. CK-MB was also within range x3. The patient was noted to have had a recent fall, where she hit the left lateral chest wall. At her last hospitalization, she was diagnosed with musculoskeletal injury in this area. Her symptoms at admission were similar with pleuritic midsternal chest pain that worsens with breathing. Cardiac enzymes again were negative. Cardiology recommended a repeat echocardiogram, which was obtained and showed no significant changes from the previous echo. It is important to note that the patient had a left heart cath within the last 2 weeks that revealed no obstructive coronary artery disease. The patient was discharged on lisinopril and metoprolol, but notes that she is unsure if she has taken these or not. She believed she has not taken these medications due to hypotension, although she did pick them up from the pharmacy and they are at her house. She was restarted on metoprolol while in the hospital. This caused hypotension. She was therefore discontinued on metoprolol. It is recommended that the patient take her blood pressure at home at least once daily and keep a record. Discussion was had with her primary care provider regarding the patient's hospitalization and possible need for antihypertensives that are not required at this time. Previously, the patient was also discharged on high-intensity statin therapy. She notes that she has not been taking this either. We discussed this medication and she is agreeable to restarting the medication, which occurred during her stay. She will continue atorvastatin 80 at discharge. The patient was noted to have 2 syncopal episodes prior to admission that were associated with standing with the prodrome of dizziness and lightheadedness. She was noted to be hypotensive while in the hospital. This likely contributed to her syncope. The patient notes some gait disturbances also. Neurology was consulted and recommended brain MRI and head CTA. Head and neck CTA was within normal limits. Brain MRI showed multiple foci of elevated T2/FLAIR signal. I discussed this finding with neurology and it is suggested that this is due to chronic small-vessel disease. The patient denies headaches. She also denies any past history of vision changes, weakness in any of the upper or lower extremities, or changes in sensation. Therefore, it is likely that this represents small-vessel disease. Neurology did see the patient. The suspicion is that the patient is having orthostatic blood pressure changes. Recommendations are made for medication changes to medications such as Wellbutrin, Zoloft, and Lyrica. The patient also is noted to have snoring and interrupted sleep. It was recommended that she has an outpatient sleep study. She adamantly refuses this and does not believe that she could tolerate a CPAP machine. Again, it was recommended that she obtain this test, but refuses. There is some concern that her unsteadiness is due to peripheral neuropathy. Her hemoglobin A1c was within normal limits. The patient will follow up with Dr. Barnhart as outpatient regarding further workup of this. The patient does complain of occasional dizziness and lightheadedness with standing. She denies vision changes, aphasia, speech changes, headache, or shortness of breath, but does note that she had some word finding difficulty recently. Again, the MRI of the head was performed and the results are as above. CTA of the head and neck was also performed and was within normal limits. The patient denies shortness of breath, cough, fever, chills, abdominal pain, nausea, vomiting, diarrhea, or constipation. She denies myalgias, arthralgias, or muscle weakness, new or in the past. Ms. Beach is stable for discharge. PHYSICAL EXAMINATION: Vital signs are temperature 97.9 oral, heart rate 78, respiratory rate 16, oxygen saturation 99% on room air, blood pressure 132/70. General: Ms. Beach is a well-developed, well-nourished, overweight, middle- aged white woman who is lying in bed. She appears to be in no acute distress. She appears comfortable. HEENT: PERRL, EOMI. Nonicteric sclerae. Hearing grossly intact. Oral mucous membranes are moist. There are no lesions. The pharynx is clear. The tongue is at midline. Palate elevates symmetrically. Cardiovascular: Regular rate and rhythm with S1, S2 present without murmurs, rubs, clicks, or gallops. There is trace nonpitting lower extremity edema. The midsternal chest wall is tender to palpation. The left lateral chest wall is tender to palpation. Pulmonary: Symmetrical chest expansion without the use of accessory muscles. Lungs: Clear to auscultation bilaterally without rhonchi , wheezes, or rubs. There is no digital clubbing or cyanosis. Abdomen: Bowel sounds in all quadrants. Soft, nontender to palpation. No hepatosplenomegaly. Musculoskeletal: Full range of motion without pain or deformities. Neuro: The patient is awake. She is alert and oriented x3 with cranial nerves grossly intact. She has a muscle strength of 5/5 bilaterally in the upper and lower extremities. Equal production staff worker strength. Steady gait without abnormality. DISCHARGE PLAN: Ms. Beach will be discharged to home. CONDITION: Good. DIET: Heart healthy. ACTIVITY: As tolerated. MEDICATIONS: 1. Continue atorvastatin 80 at bedtime for hyperlipidemia. 2. Stop metoprolol and lisinopril. You may return these to your pharmacy for proper disposal. EDUCATION: 1. Please monitor blood pressure at least once daily, record these readings and bring to your next primary care appointment. 2. Follow up with primary care provider in 4 to 7 days to discuss recent hospitalization, possible outpatient sleep study for KASSI, new home medications, need to start blood pressure monitoring, and need to start medication such as lisinopril. 3. Follow up with Dr. Barnhart on 03/26/19 at 1430 to discuss peripheral neuropathy. 4. Return to the ER or nearest hospital if you experience any worsening of symptoms, chest pain or discomfort, shortness of breath, dizziness, lightheadedness, loss of consciousness, high fevers, chills, night sweats, or any other worrisome signs or symptoms. Return for headache, syncope, gait disturbance, changes in speech, or new-onset muscle weakness. This is a summarized report of a complex medical history and hospital stay. For further details, please see the entire medical record. TIME SPENT: Approximately 35 minutes were spent on this discharge, greater than half that time was spent [id number] with the patient discussing discharge plans and instructions. SHIV FLOWERS [id number]/[facility] #: [id number] KIERSTEN
--- NOTE | 2019-03-31 00:37 | ED ---
HPI Chest Pain - HPI Summary HPI Summary: Patient is a 58-year-old female here with chest pain. Patient was in latter day when she developed chest pain. Patient was recently discharged from the hospital after being diagnosed with an NC and pneumonia. Patient also had an episode of syncope. Medications reviewed - History of Current Complaint Chief Complaint: EDChestPainROMI Time Seen by Provider: 03/02/19 17:24 Hx Obtained From: Patient Hx Last Menstrual Period: menopausal Pain Intensity: 2 Pain Scale Used: 0-10 Numeric - Additional Pertinent History Primary Care Physician: TERRANCE - Allergy/Home Medications Allergies/Adverse Reactions: Allergies Allergy/AdvReac Type Severity Reaction Status Date / Time codeine AdvReac Severe nightmares, Verified 03/05/19 09:30 nausea,vomiting hydrocodone AdvReac Severe Nausea And Verified 03/05/19 09:30 Vomiting, nightmares oxycodone AdvReac Severe nightmares, Verified 03/05/19 09:30 nause, vomiting cisneros wool Allergy Hives Uncoded 03/02/19 17:42 Home Medications: Home Medications Bupropion XL* [Wellbutrin XL *] 150 mg PO DAILY 03/02/19 [History Confirmed 11/13] PMH/Surg Hx/FS Hx/Imm Hx Previously Healthy: No Endocrine/Hematology History: Denies: Hx Diabetes, Hx Thyroid Disease Cardiovascular History: Reports: Hx Hypertension - ON MEDS Denies: Hx Pacemaker/ICD, Hx Peripheral Vascular Disease Respiratory History: Reports: Hx Chronic Bronchitis - Pt states hx of bronchitis , Hx Pneumonia Denies: Hx Asthma, Hx Chronic Obstructive Pulmonary Disease (COPD) GI History: Reports: Hx Irritable Bowel, Other GI Disorders - Hx of H Pylori Denies: Hx Ulcer History: Denies: Hx Renal Disease Musculoskeletal History: Reports: Hx Back Problems - cervical spine Sensory History: Denies: Hx Cataracts, Hx Contacts or Glasses, Hx Eye Injury, Hx Eye Prosthesis, Hx Glaucoma, Hx Legally Blind, Hx Macular Degeneration, Hx Vision Problem, Hx Deafness, Hx Hearing Aid, Hx Hearing Problem, Other Sensory Impairments Opthamlomology History: Denies: Hx Cataracts, Hx Contacts or Glasses, Hx Eye Injury, Hx Eye Prosthesis, Hx Glaucoma, Hx Legally Blind, Hx Macular Degeneration, Hx Vision Problem, Other Sensory Impairments Neurological History: Reports: Other Neuro Impairments/Disorders - Fibromyalgia Denies: Hx Dementia, Hx Developmental Delay, Hx Migraine, Hx Nerve Disease, Hx Seizures, Hx Spinal Cord Injury, Hx Transient Ischemic Attacks (TIA) Psychiatric History: Reports: Hx Depression Denies: Hx Panic Disorder - Surgical History Surgery Procedure, Year, and Place: 1993 & 1995 - [facility]. CERVICAL NECK SURGERY - 2002. [facility] Infectious Disease History: No Infectious Disease History: Reports: Hx Hepatitis - Hx of Hepatitis B Denies: Hx Clostridium Difficile, Hx Human Immunodeficiency Virus (HIV), Hx of Known/Suspected MRSA, Hx Shingles, Hx Tuberculosis, Hx Known/Suspected VRE, Hx Known/Suspected VRSA, History Other Infectious Disease, Traveled Outside the [place] in Last 30 Days - Family History Known Family History: Positive: Other - breast CA, bone CA, leukemia - Social History Alcohol Use: None Hx Substance Use: Yes Substance Use Type: Reports: Other Substance Use Comment - Amount & Last Used: Pt states she uses medical marijuana at home Hx Tobacco Use: No Smoking Status (MU): Former Smoker Type: Cigarettes Have You Smoked in the Last Year: Yes Review of Systems Constitutional: Negative Negative: Fever Eyes: Negative ENT: Negative Positive: Chest Pain. Negative: Palpitations Negative: Shortness Of Breath, Cough Gastrointestinal: Negative All Other Systems Reviewed And Are Negative: Yes Physical Exam - Summary Physical Exam Summary: Vital Signs Reviewed: Yes A+Ox3, no distress Eyes: Conjunctiva Clear, PERRL. EOM intact and full ENT: Hearing grossly normal TM x 2 clear, moist, uvula midline, no exudate, no erythema Neck: Positive: Supple Respiratory: Positive: No respiratory distress, No accessory muscle use + CTA throughout no w/r Cardiovascular: RRR nl s1, s2 no m/r CBT <2 sec abd soft + BS nt/nd no guarding, no distension Musculoskeletal Exam: SIMON x 4 without difficulty Strength Intact, ROM Intact Neurological: Positive: Alert, + sensation throughout Psychological: Positive: Normal Response To Family Skin: no rash, no ecchymosis Vital Signs On Initial Exam: Initial Vitals Temp Pulse Resp BP Pulse Ox 98.3 F 99 18 135/59 100 03/02/19 16:53 03/02/19 16:53 03/02/19 16:53 03/02/19 16:53 03/02/19 16:53 Procedures - Sedation Patient Received Moderate/Deep Sedation with Procedure: No Diagnostics - Vital Signs Vital Signs Temp Pulse Resp BP Pulse Ox 03/02/19 18:21 97 14 103/70 95 03/02/19 18:00 84 17 96 03/02/19 17:51 94 20 132/82 94 03/02/19 17:21 93 14 144/83 96 03/02/19 17:20 13 03/02/19 16:53 98.3 F 99 18 135/59 100 - Laboratory Lab Results: Lab Results 03/02/19 03/02/19 03/02/19 Range/Units 17:21 17:21 17:21 WBC 9.9 (3.5-10.8) 10^3/uL RBC 2.77 L (3.70-4.87) 10^6 /uL Hgb 8.9 L (12.0-16.0) g/dL Hct 26 L (35-47) % MCV 93 (80-97) fL MCH 32 H (27-31) pg MCHC 35 (31-36) g/dL RDW 13 (10-15) % Plt Count 330 (150-450) 10^3/uL MPV 7.4 (7.4-10.4) fL Neut % (Auto) 68.2 % Lymph % (Auto) 19.0 % [place] % (Auto) 8.2 % Eos % (Auto) 3.5 % Baso % (Auto) 1.1 % Absolute Neuts (auto) 6.8 (1.5-7.7) 10^3/ul Absolute Lymphs (auto) 1.9 (1.0-4.8) 10^3/ul Absolute Monos (auto) 0.8 (0-0.8) 10^3/ul Absolute Eos (auto) 0.3 (0-0.6) 10^3/ul Absolute Basos (auto) 0.1 (0-0.2) 10^3/ul Absolute Nucleated RBC 0.0 10^3/ul Nucleated RBC % 0.1 INR (Anticoag Therapy) 1.02 (0.82-1.09) Sodium 134 L (135-145) mmol/L Potassium 4.1 (3.5-5.0) mmol/L Chloride 104 (101-111) mmol/L Carbon Dioxide 23 (22-32) mmol/L Anion Gap 7 (2-11) mmol/L BUN 23 (6-24) mg/dL Creatinine 0.91 (0.51-0.95) mg/dL Est GFR ( Amer) 76.6 (>60) Est GFR (Non-Af Amer) 63.3 (>60) BUN/Creatinine Ratio 25.3 H (8-20) Glucose 92 (70-100) mg/dL Calcium 9.1 (8.6-10.3) mg/dL Total Bilirubin 0.50 (0.2-1.0) mg/dL AST 21 (13-39) U/L ALT 21 (7-52) U/L Alkaline Phosphatase 95 (34-104) U/L CK-MB (CK-2) 3.7 (0.6-6.3) ng/mL Troponin I 0.02 (<0.04) ng/mL B-Natriuretic Peptide (<=100) pg/mL Total Protein 6.6 (6.4-8.9) g/dL Albumin 3.9 (3.2-5.2) g/dL Globulin 2.7 (2-4) g/dL Albumin/Globulin Ratio 1.4 (1-3) 03/02/19 Range/Units 17:21 WBC (3.5-10.8) 10^3/uL RBC (3.70-4.87) 10^6 /uL Hgb (12.0-16.0) g/dL Hct (35-47) % MCV (80-97) fL MCH (27-31) pg MCHC (31-36) g/dL RDW (10-15) % Plt Count (150-450) 10^3/uL MPV (7.4-10.4) fL Neut % (Auto) % Lymph % (Auto) % [place] % (Auto) % Eos % (Auto) % Baso % (Auto) % Absolute Neuts (auto) (1.5-7.7) 10^3/ul Absolute Lymphs (auto) (1.0-4.8) 10^3/ul Absolute Monos (auto) (0-0.8) 10^3/ul Absolute Eos (auto) (0-0.6) 10^3/ul Absolute Basos (auto) (0-0.2) 10^3/ul Absolute Nucleated RBC 10^3/ul Nucleated RBC % INR (Anticoag Therapy) (0.82-1.09) Sodium (135-145) mmol/L Potassium (3.5-5.0) mmol/L Chloride (101-111) mmol/L Carbon Dioxide (22-32) mmol/L Anion Gap (2-11) mmol/L BUN (6-24) mg/dL Creatinine (0.51-0.95) mg/dL Est GFR ( Amer) (>60) Est GFR (Non-Af Amer) (>60) BUN/Creatinine Ratio (8-20) Glucose (70-100) mg/dL Calcium (8.6-10.3) mg/dL Total Bilirubin (0.2-1.0) mg/dL AST (13-39) U/L ALT (7-52) U/L Alkaline Phosphatase (34-104) U/L CK-MB (CK-2) (0.6-6.3) ng/mL Troponin I (<0.04) ng/mL B-Natriuretic Peptide 147 H (<=100) pg/mL Total Protein (6.4-8.9) g/dL Albumin (3.2-5.2) g/dL Globulin (2-4) g/dL Albumin/Globulin Ratio (1-3) Result Diagrams: 03/04/19 05:27 03/02/19 17:21 Lab Statement: Any lab studies that have been ordered have been reviewed, and results considered in the medical decision making process. Chest Pain Course/Dx - Course Course Of Treatment: Patient's her chest pain and syncope following an admission last week. Patient negative workup in the ED. Patient was admitted to the hospitalist for chest pain and syncope. - Diagnoses Provider Diagnoses: Chest pain, Syncope Discharge ED - Sign-Out/Discharge Documenting (check all that apply): Patient Departure - Discharge Plan Condition: Good Disposition: ADMITTED TO [facility] - Billing Disposition and Condition Condition: GOOD Disposition: Admitted to [facility] - Attestation Statements Document Initiated by Bernardo: No
== END 2019-03-04 16:20 | disposition home or self-care (01) ==
LOC: ED 16:48 → MEDTELE 18:52
PROVIDERS: ADMIT Physician Assistant Medical; ATTEND Internal Medicine
DX: R07.89 Other chest pain (principal); R26.9 Unspecified abnormalities of gait and mobility; E78.5 Hyperlipidemia, unspecified; R55 Syncope and collapse; D64.9 Anemia, unspecified; I42.8 Other cardiomyopathies; K58.0 Irritable bowel syndrome with diarrhea; M79.7 Fibromyalgia; F32.9 Major depressive disorder, single episode, unspecified; Z79.899 Other long term (current) drug therapy; R94.31 Abnormal electrocardiogram [ECG] [EKG]
CPT/HCPCS: 36415; 70496; 70498; 70551; 71045; 80053; 81003; 82272; 82550; 82553; 83036; 83880; 84484; 85025; 85610; 93005; 93306; 96372; 99284; A9270-GY; G0378; J1650; Q9967